=== PATIENT | female | born 1935 | race Caucasian/White ===

== ENCOUNTER → 2016-12-03 | Outpatient (CLI) | payer MEDICARE, BC ==
[2016-12-03 11:16] LABS: Blood Urea Nitrogen 17 mg/dL (7-17); Non-African American GFR(MDRD) >60 (>60 ml/min/1.73 sqM)
--- NOTE | 2016-12-03 12:11 | CT ---
EXAMINATION TYPE: CT iac wo/w con DATE OF EXAM: 12/03/2016 11:52 AM COMPARISON: CT brain 09/14/2012 HISTORY: C/O Dizziness CT DLP: 300 mGycm Automated exposure control for dose reduction was used. CONTRAST: CT scan of the IACs is performed without and with IV Contrast, patient injected with 100 mL of Omnipa que 300. FINDINGS: The external auditory canals are patent bilaterally. The middle ear ossicles are symmetric and unremarkable. There is no evidence of suspicious surrounding soft tissue density to suggest cho lesteatoma. The scutum is preserved bilaterally. The cochlea and the semicircular canals are symmet pretty and unremarkable. Vestibular aqueduct and internal carotid canal appear unremarkable. Temporoma ndibular joints are maintained bilaterally. Some minimal fluid may be within the dependent right mastoid air cells. IMPRESSION: 1. No significant abnormality seen to account for patient's symptoms.
== END | disposition home or self-care (01) ==
LOC: RADCTMAIN 10:24
PROVIDERS: ATTEND Otolaryngology
DX: H93.19 Tinnitus, unspecified ear (principal); R42 Dizziness and giddiness
CPT/HCPCS: 82565; 84520; 70482; 36415; Q9967

== ENCOUNTER → 2016-12-04 | Outpatient (CLI) | payer MEDICARE, BC ==
[2016-12-04 16:23] LABS: Basophils % (A) 1 %; CH 31.2; CHCM 33.4; Eosinophils # (A) 0.2 k/uL (0-0.7); Eosinophils % (A) 3 %; HCT 38.7 % (34.0-46.0); HDW 2.44; HGB 12.9 gm/dL (11.4-16.0); Luc # (Auto) 0.12; Luc % (Auto) 2; Lymphocytes # (A) 1.3 k/uL (1.0-4.8); Lymphocytes % (A) 24 %; MCH 31.2 pg (25.0-35.0); MCHC 33.2 g/dL (31.0-37.0); MCV 93.8 fL (80.0-100.0); Mean Platelet Volume 7.8; Monocytes # (A) 0.5 k/uL (0-1.0); Monocytes % (A) 10 %; Neutrophils # (A) 3.4 k/uL (1.3-7.7); Neutrophils % (A) 61 %; RBC 4.13 m/uL (3.80-5.40); RDW 13.6 % (11.5-15.5); WBC 5.6 k/uL (3.8-10.6); WBC (Perox) 5.59
[2016-12-04 16:36] LABS: ALT 41 U/L (9-52); AST 32 U/L (14-36); Alkaline Phosphatase 108 U/L (38-126); Anion Gap 14 mmol/L; Blood Urea Nitrogen 12 mg/dL (7-17); Carbamazepine (Tegretol) 7.4 ug/mL; Carbon Dioxide 26 mmol/L (22-30); Chloride 105 mmol/L (98-107); Digoxin <0.4 ng/mL; Glucose 96 mg/dL (74-99); Non-African American GFR(MDRD) >60 (>60 ml/min/1.73 sqM); Sodium 145 mmol/L (137-145); Total Bilirubin 0.3 mg/dL (0.2-1.3); Total Protein 6.9 g/dL (6.3-8.2)
== END | disposition home or self-care (01) ==
LOC: LABWHC1 15:48
PROVIDERS: ATTEND Family Medicine
DX: G50.0 Trigeminal neuralgia (principal); I48.0 Paroxysmal atrial fibrillation
CPT/HCPCS: 36415; 80053; 80156; 80157; 80162; 83735; 85025

== ENCOUNTER → 2017-03-12 | Outpatient (CLI) | payer MEDICARE, BC ==
[2017-03-12 10:55] LABS: Basophils % (A) 0 %; CH 31.5; Eosinophils # (A) 0.1 k/uL (0-0.7); Eosinophils % (A) 2 %; HCT 40.1 % (34.0-46.0); HGB 12.6 gm/dL (11.4-16.0); Luc % (Auto) 4; Lymphocytes # (A) 1.1 k/uL (1.0-4.8); Lymphocytes % (A) 22 %; MCH 30.2 pg (25.0-35.0); MCHC 31.5 g/dL (31.0-37.0); MCV 95.9 fL (80.0-100.0); Mean Platelet Volume 7.1; Monocytes # (A) 0.4 k/uL (0-1.0); Monocytes % (A) 9 %; Neutrophils # (A) 3.1 k/uL (1.3-7.7); Neutrophils % (A) 63 %; RBC 4.18 m/uL (3.80-5.40); RDW 13.6 % (11.5-15.5); WBC (Perox) 5.08
[2017-03-12 11:57] LABS: ALT 37 U/L (9-52); AST 27 U/L (14-36); Anion Gap 10 mmol/L; Blood Urea Nitrogen 16 mg/dL (7-17); Calcium 9.5 mg/dL (8.4-10.2); Carbamazepine (Tegretol) 6.7 ug/mL; Carbon Dioxide 27 mmol/L (22-30); Chloride 106 mmol/L (98-107); Glucose 96 mg/dL (74-99); Magnesium 2.1 mg/dL (1.6-2.3); Non-African American GFR(MDRD) >60 (>60 ml/min/1.73 sqM); Potassium 4.1 mmol/L (3.5-5.1); Sodium 143 mmol/L (137-145)
== END | disposition home or self-care (01) ==
LOC: LABWHC1 10:09
PROVIDERS: ATTEND Family Medicine
DX: G50.0 Trigeminal neuralgia (principal)
CPT/HCPCS: 36415; 80048; 80156; 80157; 83735; 84450; 84460; 85025

== ENCOUNTER 2017-07-14 08:56 | Day surgery (SDC) | payer MEDICARE, BC ==
[2017-07-13 10:53] VITALS: BMI 27.3
[~2017-07-14 08:56] MED LIST: LACTATED RINGERS 1,000 ML IV SCH
[2017-07-14 09:10] VITALS: TEMP 97.8
[2017-07-14] MEDS ORDERED: LIDOCAINE 1% 20 ML VIAL (10MG/ML) FOR IV START INTRADERMA ONE (09:13)
[2017-07-14] MEDS ORDERED: PROPOFOL 10 MG/ML 20 ML VIAL IV ONE (10:01)
[2017-07-14] MEDS ORDERED: GLYCOPYRROLATE 0.2 MG/ML 2 ML VIAL ONE (10:01)
[2017-07-14 10:53] VITALS: BP 128/78; PULSE 78; RESP 18
--- NOTE | 2017-07-14 11:15 | P.PCN ---
Date of Procedure: 07/14/17 Preoperative Diagnosis: Postoperative Diagnosis: Procedure(s) Performed: BRIEF HISTORY: Patient is a 82-year-old pleasant white female, scheduled for an elective colonoscopy as a part of evaluation of prior history of colon polyps. Last colonoscopy was in March 2014 and was noted to have residual polyp from prior polypectomy a year earlier in the splenic flexure which she underwent polypectomy as well as argon plasma coagulation and biopsies revealed tubular adenoma. She was advised to have a repeat colonoscopy in one year. Presently symptomatic PROCEDURE PERFORMED: Colonoscopy with snare polypectomy and argon plasma coagulation. PREOPERATIVE DIAGNOSIS: History Of colon polyps. IV sedation per Anesthesia. PROCEDURE: After informed consent was obtained, the patient, was brought into the endoscopy unit. IV sedation was administered by Anesthesia under continuous monitoring. Digital rectal examination was normal. Initially the Olympus CF- 160 flexible video colonoscope was then inserted in the rectum, gradually advanced into the cecum without any difficulty. Careful examination was performed as the scope was gradually being withdrawn. Ileocecal valve and the appendiceal orifice were visualized and appeared normal. Prep was excellent. Mucosa of the cecum, ascending colon, transverse colon, appeared normal. In the proximal descending colon close to the splenic flexure at 60 cm from the anal verge there was a 2 cm residual polyp noted from the previous polyp rectum aside that was also tattooed with Kellee ink. This polyp was removed by snare polypectomy and some residual polyp was too noted which was coagulated using argon plasma. The rest of the descending colon, sigmoid colon, and rectum appeared normal. Retroflexion was performed in the rectum and no lesions were seen. The patient tolerated the procedure well. IMPRESSION: 2 cm recurrent polyp in the proximal descending colon close to the splenic flexure status post snare polypectomy and argon plasma coag ablation as described above RECOMMENDATIONS: Findings of this examination were discussed with the patient as well as family. She was advised to follow up in office to discuss the biopsy results. Based the biopsy results will plan a repeat colonoscopy in one year was a surgical intervention. Implants: Indications for Procedure: Operative Findings: Description of Procedure:
== END 2017-07-14 11:42 | disposition home or self-care (01) ==
LOC: ORWHC2ENDO 08:56
PROVIDERS: ATTEND Internal Medicine Gastroenterology
DX: Z12.11 Encounter for screening for malignant neoplasm of colon (principal); D12.4 Benign neoplasm of descending colon; Z86.010 Personal history of colon polyps; I10 Essential (primary) hypertension; E78.5 Hyperlipidemia, unspecified; I48.91 Unspecified atrial fibrillation; Z79.01 Long term (current) use of anticoagulants; J44.9 Chronic obstructive pulmonary disease, unspecified; Z79.899 Other long term (current) drug therapy; Z88.5 Allergy status to narcotic agent; Z91.09 Other allergy status, other than to drugs and biological substances
CPT/HCPCS: 88305; 45385; 45388; J2704

== ENCOUNTER → 2017-09-27 | Outpatient (CLI) | payer MEDICARE, BC ==
[2017-09-27 11:51] LABS: Blood Urea Nitrogen 23 mg/dL (7-17); Non-African American GFR(MDRD) >60 (>60 ml/min/1.73 sqM)
--- NOTE | 2017-09-27 13:18 | CT ---
EXAMINATION TYPE: CT chest w con DATE OF EXAM: 09/27/2017 COMPARISON: 09/24/2016 HISTORY: Lung and Breast Cancer CT DLP: 283.70 mGycm Automated exposure control for dose reduction was used. CONTRAST: CT scan of the chest is performed with IV Contrast, patient injected with 100 ml mL of Omnipaque 300. FINDINGS: LUNGS: Partial pneumonectomy change right upper lobe again noted with associated volume loss. There i s interval development of multiple bilateral pulmonary nodules suspicious for metastatic disease with the largest nodule identified within the right upper lobe measuring 1.5 cm. The largest nodule withi n the left lung is within the left lower lobe and measures approximately 4 mm. Small right-sided pleu ral effusion. Additional partially solid groundglass nodule right infrahilar region measuring 1.6 cm. Additional right upper lobe groundglass nodules noted. Post radiation therapy changes medial right l magdalena. MEDIASTINUM: Anterior mediastinal nodule measures 1.7 cm and is new. Several subcentimeter precarinal lymph nodes are identified. Esophageal thickening identified. UPPER ABDOMEN: No significant abnormality appreciated. OTHER: Atheromatous changes abdominal aorta with borderline aneurysmal dilatation 3 cm. IMPRESSION: 1. Interval development of multiple right-sided pulmonary nodules and smaller left-sided pulmonary no dules felt to reflect metastatic disease. 2. New mediastinal nodule may reflect underlying adenopathy. 3. Partial right upper lobe pneumonectomy changes. 4. Trace right-sided pleural effusion.
== END | disposition home or self-care (01) ==
LOC: RADCTMAIN 11:16
PROVIDERS: ATTEND Internal Medicine Hematology & Oncology
DX: C34.90 Malignant neoplasm of unspecified part of unspecified bronchus or lung (principal); C50.212 Malignant neoplasm of upper-inner quadrant of left female breast; Z90.2 Acquired absence of lung [part of]; Z88.5 Allergy status to narcotic agent
CPT/HCPCS: 82565; 84520; 71260; 36415; Q9967

== ENCOUNTER → 2017-10-08 | Outpatient (CLI) | payer MEDICARE, BC ==
[2017-10-08 13:04] LABS: CH 30.3; CHCM 31.7; HCT 41.1 % (34.0-46.0); HDW 2.18; HGB 13.2 gm/dL (11.4-16.0); MCH 30.8 pg (25.0-35.0); MCHC 32.1 g/dL (31.0-37.0); Mean Platelet Volume 7.8; RBC 4.28 m/uL (3.80-5.40); RDW 14.2 % (11.5-15.5); WBC 5.3 k/uL (3.8-10.6)
[2017-10-08 13:21] LABS: ALT 41 U/L (9-52); AST 26 U/L (14-36); Anion Gap 9 mmol/L; Blood Urea Nitrogen 17 mg/dL (7-17); Calcium 9.2 mg/dL (8.4-10.2); Carbamazepine (Tegretol) 6.1 ug/mL; Carbon Dioxide 27 mmol/L (22-30); Chloride 105 mmol/L (98-107); Cholesterol 236 mg/dL (<200); Glucose 95 mg/dL (74-99); HDL Cholesterol 64 mg/dL (40-60); Magnesium 2.2 mg/dL (1.6-2.3); Non-African American GFR(MDRD) >60 (>60 ml/min/1.73 sqM); Sodium 141 mmol/L (137-145)
== END | disposition home or self-care (01) ==
LOC: LABWHC1 11:56
PROVIDERS: ATTEND Family Medicine
DX: Z00.01 Encounter for general adult medical examination with abnormal findings (principal)
CPT/HCPCS: 36415; 80048; 80061; 80156; 82306; 83036; 83735; 84443; 84450; 84460; 85027

== ENCOUNTER 2017-12-15 08:50 | Day surgery (SDC) | payer MEDICARE, BC ==
[2017-12-15 09:44] LABS: Mean Platelet Volume 6.9; Platelet Count 222 k/uL (150-450)
[2017-12-15 10:06] LABS: INR 1.1 (<1.2); Prothrombin Time 10.3 sec (9.0-12.0)
--- NOTE | 2017-12-15 10:41 | CT ---
EXAMINATION TYPE: CT discontinued procedure DATE OF EXAM: 12/15/2017 COMPARISON: NONE HISTORY: Breast cancer and right lung nodule The procedure is discussed with the patient, the risks, complications, benefits and alternatives, wer e discussed and any questions were answered. Informed consent was obtained. The patient is placed s upine on the CT table, prepped and draped in the usual sterile fashion. The small nodule measuring approximately 1 cm was directly posterior to the rib. Percutaneous access was not visualized despite multiple positions and breathing recommendations. IMPRESSION: 1. Discontinued CT biopsy due to inadequate percutaneous access.
[2017-12-15 11:16] VITALS: BP 128/80; PULSE 95; RESP 18; TEMP 98.1
== END 2017-12-15 11:00 | disposition home or self-care (01) ==
LOC: RADPROMAIN 08:50
PROVIDERS: ATTEND Internal Medicine Critical Care Medicine
DX: R91.1 Solitary pulmonary nodule (principal); Z53.8 Procedure and treatment not carried out for other reasons; C50.919 Malignant neoplasm of unspecified site of unspecified female breast
CPT/HCPCS: 36415; 76380; 85049; 85610

== ENCOUNTER → 2018-01-15 | Outpatient (CLI) | payer MEDICARE, BC ==
--- NOTE | 2018-01-15 15:11 | PE ---
EXAMINATION TYPE: PET CT fusion skull to thigh DATE OF EXAM: 01/15/2018 CLINICAL HISTORY: Lung cancer progress study. History of bilateral breast cancer 1968 and 2005. Histo ry of right lung cancer with chemotherapy and radiation treatment completed 2011. TECHNIQUE: Following the intravenous administration of 13.74 mCi of F-18 FDG, whole body images are performed from the skull base to the midthigh. Images are reviewed on the computer in the coronal, axial, and sagittal planes. Reconstructed rotating images are created on independent workstation and reviewed on the computer. A non-contrast CT is performed in conjunction with the PET scan. COMPARISON: Prior PET/CT October 23, 2017. Chest CT September 27, 2017 and older studies FINDINGS: SKULL BASE AND NECK: No suspicious hypermetabolic uptake is identified. CHEST, MEDIASTINUM, AND HILAR REGION: Low lung volumes are redemonstrated. There is persistent hyperm etabolic subpleural nodule right midlung anterolateral aspect measuring 1.5 x 1.1 cm on axial image 8 0, max SUV is 10.96 on current study. Once again there are multiple small nodules in the bilateral lower lung is redemonstrated without def initive hypermetabolic uptake. All nodules are subcentimeter in size without significant interval manuel nge. There is redemonstration of 2 larger groundglass nodules in the right upper lobe on axial image 67 an d 69 respectively which have been present on several older CTs, no suspicious hypermetabolic uptake i s seen. No significant change in size from older CTs is present. There are stable wedge-shaped chroni c consolidation or atelectasis anteromedial right midlung hilar/suprahilar level on axial image 78 wi thout abnormal hypermetabolic uptake. There is stable 10 x 9 mm pericarinal lymph node axial image 78 with perhaps mild increased hypermeta bolic uptake, max SUV is 3.13. There is stable right pericardial 1.4 x 1.3 cm low dense lesion axial image 89 without abnormal hyper metabolic uptake. ABDOMEN AND PELVIS: No suspicious hypermetabolic uptake is seen. OSSEOUS STRUCTURES: No suspicious abnormal metabolic uptake is identified. OTHER CT: Scleral calcification left globe is redemonstrated. Nasal septum is deviated to right of mi dline. Right breast is surgically absent. There are surgical clips in left breast medially redemonstrated fr om lumpectomy. Left axillary surgical clips are again seen. Coronary artery calcification is redemonstrated which is noted marker for coronary artery disease. There is fairly moderate atherosclerotic change in the descending aorta most prominent near iliac bif urcation. There is focal prominent bowel loop at site of sutures left midabdomen axial image 147 redemonstrated . No suspicious bowel dilatation otherwise is seen. There are few diverticula in the sigmoid colon. Uterus is surgically absent or atrophic in appearance. There is multilevel spurring in the thoracolumbar spine. There is facet arthropathy lower lumbar leve ls. There is moderate to severe multilevel disc space narrowing at mid to lower lumbar levels. IMPRESSION: Persistent suspicious peripheral anterolateral right upper lobe nodule. No significant ch marybeth in size from prior PET/CT but increased hypermetabolic uptake makes more suspicious for neoplasm . Consider repeat imaging guided biopsy for tissue sampling. Case is difficult due to adjacent mastec lia. Surgical referral for wedge resection also should be considered. Despite lack of hypermetabolic uptake in bibasilar nodules they remain suspicious given interval development since older CTs.
== END | disposition home or self-care (01) ==
LOC: RADPETMAIN 10:36
PROVIDERS: ATTEND Internal Medicine Hematology & Oncology
DX: C34.91 Malignant neoplasm of unspecified part of right bronchus or lung (principal); Z90.12 Acquired absence of left breast and nipple
CPT/HCPCS: 78815; A9552

== ENCOUNTER 2018-03-09 09:06 | Day surgery (SDC) | payer MEDICARE, BC ==
[2018-03-07 15:17] VITALS: BMI 28.3
[~2018-03-09 09:06] MED LIST changes: +LIDOCAINE 1% 20 ML VIAL (10MG/ML) FOR IV START INTRADERMA PRN
[2018-03-09 09:20] VITALS: RESP 16; TEMP 98.8
[2018-03-09] MEDS ORDERED: PROPOFOL 10 MG/ML 20 ML VIAL IV ONE (09:55)
--- NOTE | 2018-03-09 10:37 | P.PCN ---
Date of Procedure: 03/09/18 Procedure(s) Performed: Brief history: Patient is a pleasant 82-year-old white female, scheduled for an elective upper endoscopy as well as colonoscopy as a part of evaluation of gastric esophageal reflux disease, intermittent dysphagia to solids and prior history of colon polyps. Last colonoscopy was done a year ago. She was noted to have recurrent polyp in the descending colon that was removed by piecemeal snare polypectomy. Procedure performed: Esophagogastroduodenoscopy with biopsy Colonoscopy with snare polypectomy and tattooing with Kellee ink Preoperative diagnosis: GERD/intermittent dysphagia to solids Follow-up large descending colon polyp Anesthesia: MAC Procedure: After informed consent was obtained from the patient was brought into the endoscopy unit and IV sedation was administered by anesthesia under continuous monitoring. Initially upper endoscopy was done. The Olympus GF 160 video endoscope was inserted inserted into the mouth and esophagus intubated without any difficulty and was gradually advanced into the stomach and duodenum and carefully examined. The bulb and second part of the duodenum appeared normal. The scope was then withdrawn into the stomach adequately insufflated with air and upon careful examination the antrum had mild gastritis and biopsies were done from this area. The body, cardia and fundus appeared normal. The scope was then withdrawn into the esophagus. small faint of hiatal hernia noted.The GE junction was located at 40 cm to the incisors. It appeared regular with no erythema erosions or ulcerations. Rest of the esophagus appeared normal. the proximal cervical esophagus was carefully examined and no obvious stricture identified. Patient tolerated the procedure well. At this time the patient continued to remain sedation. Initial digital rectal examination was normal. Olympus CF 160 video pediatric colonoscope was then inserted into the rectum and gradually advanced to the cecum without any difficulty. Careful examination was performed as the scope was gradually being withdrawn. The prep was excellent. The cecum, ascending colon, appeared normal. In the proximal transverse colon closer to the hepatic flexure there was a 2 cm broad-based polyp that was completely removed by snare polypectomy. In the, descending colon at 60 cm from the anal verge there was a recurrent 2 cm flat polyp at the site of previous polypectomy. Despite multiple attempts I was not able to completely remove the polyp by snare and hence multiple biopsies were done obtained from this area. Following this tattooing visible was performed with Kellee ink around the site of the polyp. In the sigmoid colon there was a 1 cm polyp removed by snare polypectomy. The rest of the , sigmoid colon and rectum appeared normal. Retroflexion was performed in the rectum and no lesions were noted. Patient tolerated the procedure well. Impression: 1. Upper endoscopy revealed small hiatal hernia but no evidence of esophagitis or esophageal stricture. 2. Colonoscopy revealed: a) 2 cm broad-based polyp in the proximal transverse colon status post snare polypectomy b) 2 cm recurrent polyp in the descending colon was another the hepatic flexure at the same site of previous polypectomy status post partial snare polypectomy, biopsy and tattooing with Kellee ink c) 5 mm sigmoid colon polyp status post polypectomy Recommendations: Findings of this examination were discussed with the patient as well as a family. She was advised to follow with the biopsy results. She'll be seen in the office in 2 weeks and will discuss surgical evaluation for segmental resection of the recurrent descending colon polyp..
[2018-03-09 10:43] VITALS: PULSE 83
[2018-03-09 10:56] VITALS: BP 112/56
== END 2018-03-09 11:34 | disposition home or self-care (01) ==
LOC: ORWHC2ENDO 09:06
PROVIDERS: ATTEND Internal Medicine Gastroenterology
DX: D12.3 Benign neoplasm of transverse colon (principal); D12.5 Benign neoplasm of sigmoid colon; Z86.010 Personal history of colon polyps; K29.50 Unspecified chronic gastritis without bleeding; K44.9 Diaphragmatic hernia without obstruction or gangrene; I35.0 Nonrheumatic aortic (valve) stenosis; I48.91 Unspecified atrial fibrillation; Z85.3 Personal history of malignant neoplasm of breast; Z92.21 Personal history of antineoplastic chemotherapy; Z79.899 Other long term (current) drug therapy; Z88.5 Allergy status to narcotic agent
CPT/HCPCS: 88305; 45380; 45385; 43239; 45381; J2704; 44404

== ENCOUNTER → 2018-04-23 | Outpatient (CLI) | payer MEDICARE, BC ==
--- NOTE | 2018-04-24 17:35 | PE ---
EXAMINATION TYPE: PET CT fusion skull to thigh DATE OF EXAM: 04/23/2018 COMPARISON: NONE Prior PET/CT: 01/15/2018 CT chest 09/27/2017 HISTORY: Lung cancer right middle lobe TECHNIQUE: Following the intravenous administration of 13.08 mCi of F-18 FDG, whole body images are performed from the skull base to the midthigh. Images are reviewed on the computer in the coronal, a xial, and sagittal planes. Reconstructed rotating images are created on independent workstation and reviewed on the computer. A localization and attenuation correction CT is performed in conjunction with the PET scan. DLP: 364.24 mGycm SCAN: Subsequent Blood glucose: 122 mg/dL Average Mediastinum SUV: 2.1 Average Liver SUV: 2.8 FINDINGS: NECK: No abnormal uptake THORAX: There is intense uptake with blooming in the right upper lobe. This area corresponds to the p revious exam. PET image 69. SUV value 8.23. There is some mild uptake within the consolidation in the right lower lobe. Greatest uptake is surveillance supervisor ior to the right mainstem bronchus, image 76. SUV value 3.18. Although this area of increased density has generalized uptake. Increased uptake is within the thickening along the mediastinal border on th e right at the level of the right main bronchus with an SUV value in the range of 2.59. ABDOMEN: No abnormal uptake. No suspicious uptake within the liver is evident. There is some focal uptake in the region of the proximal ascending colon. Image 139. This has an SUV value of 5.26. Additional workup is recommended. Colonic neoplasm is not excluded. This is more foca l than normal GI uptake. PELVIS: No abnormal uptake OSSEOUS STRUCTURES: No abnormal uptake. LOCALIZATION CT: Nodule within the lung periphery measures 1.5 x 1.7 cm., Series 3 image 71. This is at the right mastectomy and chest wall resection site. Large consolidation extends into the right car diomediastinal region this area appears smaller than comparison, this does have some mild uptake of S UV 2.59. Consolidation remains into the right lower lobe. Coronary artery calcification is present. T he ascending thoracic aorta at the level of the main pulmonary artery is 3.6 cm. The main pulmonary a rtery the bifurcation is 2.4 cm. Multiple small pulmonary nodules are within the posterior dependent lung bases. Suspicious focal uptake is not identified. Largest nodule may be in the left lung base me asuring 0.8 cm., SUV 0.65, Series 3 image 97. Largest nodule at the right lung base measures 0.7 cm. And SUV of 0.76. Series 3 image 87. COMPARISON: Uptake is present in the right upper lung field nodule and within the consolidation previ ously. Uptake within the proximal ascending colon is new. IMPRESSION: 1. Enlarging peripheral lung nodule with elevated SUV of 8.23, diminished from previous SUV of 10.96. 2. Right perihilar consolidations along the anterior mediastinal border and extending into the right lower lobe medially and posteriorly with mild elevated SUV. Neoplasm within these regions is not excl uded. These areas are smaller than comparison. 3. No focus of radiotracer within the proximal medial ascending colon. A new neoplasm is not excluded . Additional workup is recommended.
== END | disposition home or self-care (01) ==
LOC: RADPETMAIN 08:26
PROVIDERS: ATTEND Radiology Radiation Oncology
DX: C34.2 Malignant neoplasm of middle lobe, bronchus or lung (principal)
CPT/HCPCS: 78815; A9552

== ENCOUNTER 2018-06-01 10:49 | Outpatient (CLI) | payer MEDICARE, BC | END 2018-06-01 11:00 | disposition home or self-care (01) | LOC: PTMAIN 10:49 | PROVIDERS: ATTEND Otolaryngology | DX: K21.9 Gastro-esophageal reflux disease without esophagitis (principal) | CPT/HCPCS: 31579 ==

== ENCOUNTER → 2018-06-01 | Outpatient (CLI) | payer MEDICARE, BC ==
--- NOTE | 2018-06-01 10:53 | FL ---
EXAMINATION TYPE: FL barium swallow DATE OF EXAM: 06/01/2018 COMPARISON: None HISTORY: Dysphasia TECHNIQUE: A single contrast UGI study is performed. FINDINGS: 54 seconds of fluoroscopy time was provided for the procedure. 16 images are obtained. The esophagus dilates to normal caliber has normal contour to the gastroesophageal junction. Gastroes ophageal junction opens to normal caliber. Secondary and tertiary contractions were evident during the examination. There is incomplete strippin g of the esophageal bolus in the horizontal drinking position. IMPRESSIONS: 1. Presbyesophagus. 2. Incomplete stripping of the esophageal bolus in the horizontal drinking position.
== END | disposition home or self-care (01) ==
LOC: RADFLWHC 10:06
PROVIDERS: ATTEND Otolaryngology
DX: K22.8 Other specified diseases of esophagus (principal)
CPT/HCPCS: 74220

== ENCOUNTER → 2018-07-13 | Outpatient (CLI) | payer MEDICARE, BC ==
[2018-07-13 10:13] LABS: HCT 39.1 % (34.0-46.0); HGB 12.2 gm/dL (11.4-16.0); MCH 30.4 pg (25.0-35.0); MCHC 31.3 g/dL (31.0-37.0); MCV 97.1 fL (80.0-100.0); Mean Platelet Volume 6.7; Platelet Count 216 k/uL (150-450); RBC 4.03 m/uL (3.80-5.40); RDW 13.5 % (11.5-15.5); WBC 6.3 k/uL (3.8-10.6)
[2018-07-13 10:20] LABS: Appearance,Urine Clear (Clear); Bacteria,Urine Rare /hpf; Bilirubin,Urine Negative (Negative); Blood,Urine Negative (Negative); Color,Urine Yellow; Glucose,Urine (UA) Negative (Negative); Ketones,Urine Negative (Negative); Leukocyte Esterase,Urine Moderate (Negative); Mucus,Urine Rare /hpf; Nitrite,Urine Positive (Negative); PH, Urine 6.5 (5.0-8.0); Protein,Urine Negative (Negative); Specific Gravity,Urine 1.009 (1.001-1.035); Squamous Epithelial Cell,Urine <1 /hpf (0-4); Urobilinogen,Urine <2.0 mg/dL (<2.0); WBC,Urine 11 /hpf (0-5)
[2018-07-13 10:57] LABS: ALT 34 U/L (9-52); AST 23 U/L (14-36); Albumin 3.5 g/dL (3.5-5.0); Alkaline Phosphatase 91 U/L (38-126); Anion Gap 6 mmol/L; Blood Urea Nitrogen 12 mg/dL (7-17); Carbon Dioxide 27 mmol/L (22-30); Chloride 107 mmol/L (98-107); Cholesterol 175 mg/dL (<200); Glucose 95 mg/dL (74-99); HDL Cholesterol 66 mg/dL (40-60); LDL Cholesterol,Calculated 81 mg/dL (0-99); Magnesium 2.1 mg/dL (1.6-2.3); Sodium 140 mmol/L (137-145); Total Bilirubin 0.3 mg/dL (0.2-1.3); Triglycerides 141 mg/dL (<150)
[2018-07-13 11:07] LABS: T4, Free (Free Thyroxine) 0.91 ng/dL (0.78-2.19)
[2018-07-13 19:50] LABS: Hemoglobin A1C 5.6 % (4.0-6.0)
== END | disposition home or self-care (01) ==
LOC: LABWHC1 09:08
PROVIDERS: ATTEND Family Medicine
DX: Z00.01 Encounter for general adult medical examination with abnormal findings (principal); E07.9 Disorder of thyroid, unspecified; E83.42 Hypomagnesemia
CPT/HCPCS: 36415; 80053; 80061; 81001; 82306; 83036; 83735; 84439; 84443; 85027

== ENCOUNTER → 2018-07-30 | Outpatient (CLI) | payer MEDICARE, BC ==
--- NOTE | 2018-07-31 13:42 | PE ---
EXAMINATION TYPE: PET CT fusion skull to thigh DATE OF EXAM: 07/30/2018 CLINICAL HISTORY: 83-year-old female with restaging right lung cancer diagnosed in 2012. Patient also with history of breast cancer with surgery last in 2005. Last chemoradiation therapy in 2011. TECHNIQUE: Following the intravenous administration of 12.7 mCi of F-18 FDG, whole body images are performed from the skull base to the midthigh. Images are reviewed on the computer in the coronal, a xial, and sagittal planes. Reconstructed rotating images are created on independent workstation and reviewed on the computer. A localization and attenuation correction CT is performed in conjunction with the PET scan. Glucose level: 95 mg/dL CTDI: 3.36 mGy DLP: 299.09 mGy-cm COMPARISON: 04/23/2018 and 01/15/2018 FINDINGS: PET: There is new focal borderline intense uptake along the right upper longus coli at the level of the na sopharynx, max SUV 5.4. There is no CT correlate Stable small 7 mm precarinal lymph node, max SUV 3.2 versus 2.5, previously. Continued consolidation and volume loss along the right perihilar region. This region shows variable mild or borderline moderate uptake, max SUV 3.3 versus 3.4, previously. Consolidation and soft tissue thickening along the right perihilar region, extending down to the ante rior pleural margin along the medial right middle lobe (2.9 cm thick versus 2.0 cm thick, previously) , extending up along the anterior right perihilar margin (thickening up to 1.6 cm versus 7 mm, previo usly) and with increasing patchy peribronchovascular consolidation centrally within the right lung is also increased. There are new septal lines on the right and new moderate pleural effusion. Intense uptake right middle lobe nodule currently measuring 2.8 cm versus 1.7 cm on 04/23/2018 and 1.5 cm on 01/15/2018. Max SUV 8.1 versus 8.2 and 11.0, respectively on the patient's prior 2 studies. A groundglass nodule measuring 1.2 cm in the right upper lobe is unchanged and shows no significant F DG uptake. A probable right pericardial lymph node measuring 1 cm is also unchanged and shows no significant FDG uptake. Numerous pulmonary nodules in the left lower lung are redemonstrated. Largest superior segment right lower lobe measures 6 mm vs approximately 4 mm on 01/15/2018. Subpleural pulmonary nodule posteromedia l superior segment right lower lobe measures 8 mm, unchanged. Many other nodules may be minimally in creased in size. Patient status post right mastectomy. Average liver SUV 2.3. Variable [id number]-ub-[id number] uptake throughout the stomach and bowel loops with a couple small bowel loo ps showing intense uptake in a segmental distribution in the lower mid abdomen. Findings likely physi ologic. Ametabolic 2.0 cm cyst anterior mid left kidney. Otherwise, physiologic FDG uptake within the abdome n and pelvis. Some degenerative tracer uptake at the right shoulder. ATTENUATION CORRECTION CT: Rightward nasal septal deviation. Visualized paranasal sinuses and mastoid air cells are clear. No c ervical lymphadenopathy. Heart borderline enlarged with trace pericardial fluid. Aortic valvular calcifications are present. A dditional coronary vessel calcifications are present. Ectatic upper descending thoracic aorta at 3.2 cm. Moderate atherosclerotic arch calcifications with conventional arch vessel branching anatomy. Ec tatic lower descending thoracic aorta 2.8 cm. Emphysematous changes in the lungs. Gallbladder hydropic at 4.5 cm wide. Likely relates to fasting state. If right upper quadrant pain or concern for early acute cholecystitis, follow-up ultrasound or HIDA scan. Adrenal glands are clear. No dilated small bowel, free fluid, or free air. No mesenteric or retroperitoneal lymphadenopathy. Mo derate stool burden. Mild diverticular change in the sigmoid colon. No pericolonic inflammatory pate e. Bladder is urine distended. The uterus and ovaries are not well delineated from adjacent bowel loops. No abnormal fluid collection in the pelvis or pelvic lymphadenopathy. Bones: Degenerative changes of the hips and mid to lower lumbar spine and endplate spondylosis mid to lower thoracic spine. IMPRESSION: 1. Increased thickening of the right perihilar consolidation and volume loss extending down along the medial right middle lobe and superior mediastinal border continues to show only mild or borderline m oderate uptake. Correlate for possible progressive radiation pneumonitis or fibrosis. 2. Enlarging hypermetabolic right middle lobe pulmonary nodule currently measuring 2.8 cm (versus 1.7 and 1.5 cm on the patient's prior [address]s dating back to 01/15/2018). Stable max SUV around 8.0 co mpared to the last PET/CT. A small 7 mm precarinal lymph node is stable in size but shows slight incr eased borderline moderate uptake (max SUV 3.2 versus 2.5, previously) possibly reactive. 3. New moderate sized right pleural effusion with new septal lines throughout the right lung (possibl y due to pulmonary venous congestion or atypical pneumonias). Clinically correlate. 4. Numerous pulmonary nodules in the left mid and lower lung measure up to 8 mm redemonstrated. A few scattered pulmonary nodules are minimally larger by up to 2 mm. These show no evident hypermetabolis m at this time but the majority are too small for adequate PET characterization. 5. New focal borderline intense uptake along the posterior right nasopharynx appears centered on the longus coli. Despite the focality, muscular uptake is suspected. A short interval follow-up contrast enhanced CT neck can be considered to exclude a developing mucosal lesion here.
== END | disposition home or self-care (01) ==
LOC: RADPETMAIN 08:28
PROVIDERS: ATTEND Radiology Radiation Oncology
DX: C34.2 Malignant neoplasm of middle lobe, bronchus or lung (principal); J98.4 Other disorders of lung; J90 Pleural effusion, not elsewhere classified; Z85.3 Personal history of malignant neoplasm of breast
CPT/HCPCS: 78815; A9552

== ENCOUNTER 2018-08-08 11:15 | Day surgery (SDC) | payer MEDICARE, BC ==
[~2018-08-08 11:15] MED LIST changes: -LACTATED RINGERS 1,000 ML IV SCH; -LIDOCAINE 1% 20 ML VIAL (10MG/ML) FOR IV START INTRADERMA PRN; +SODIUM CHLORIDE 0.9% 500 ML in EMPTY BAG 1 BAG IV PRN
[2018-08-08 11:48] VITALS: BP 129/75; PULSE 97; RESP 18; TEMP 98
--- NOTE | 2018-08-08 12:48 | XR ---
EXAMINATION TYPE: XR chest 1V portable DATE OF EXAM: 08/08/2018 COMPARISON: 09/14/2012 HISTORY: Postthoracentesis TECHNIQUE: Single frontal view of the chest is obtained. FINDINGS: There is no sizable pneumothorax. Diffuse osteopenia and arthropathy of the shoulders note d greater on the right. Surgical clips overlying the left axilla. Surgical clips overlying the left b reast. There is consolidation and tiny pleural effusion on the right. No pneumothorax. Rib deformitie s are noted on the right. Heart size stable. Atherosclerotic change aorta. IMPRESSION: 1. Persistent small pleural effusion and areas of consolidation involving the right lung but no pneum othorax postthoracentesis.
--- NOTE | 2018-08-09 00:01 | PCN ---
PROCEDURE NOTE Indication Right sided pleural effusion. A time-out was completed verifying correct patient, procedure, site, positioning , and implant (s) or special equipment if applicable. Ultrasound guidance was used and appropriate fluid pocket was identified and marked. Patient was positioned, prepped and draped in usual sterile fashion. Lidocaine was used to anesthetize the area. A Thoracentesis catheter was introduced into the pleural space and fluid was removed. Blood loss was none. A chest x-ray was ordered to evaluate for pneumothorax. Total Fluid Removed 900 mL. Color of Fluid turbid dark yellowish pleural effusion. Fluid @@was/was not sent for appropriate laboratory tests. Patient tolerated the procedure well and there were no complications. PREOP DIAGNOSIS: Right sided pleural effusion. POSTOP DIAGNOSIS: Right sided pleural effusion. No bedside complications. No evidence of pneumothorax following the procedure. MMODL / IJN: [id number] /
[2018-08-09 04:44] LABS: Total Protein, Body Fluid 3302 mg/dL
== END 2018-08-09 09:35 | disposition home or self-care (01) ==
LOC: PROCWHC3 11:15
PROVIDERS: ATTEND Internal Medicine Critical Care Medicine
DX: J90 Pleural effusion, not elsewhere classified (principal); C34.90 Malignant neoplasm of unspecified part of unspecified bronchus or lung; J31.0 Chronic rhinitis; I35.0 Nonrheumatic aortic (valve) stenosis; J44.9 Chronic obstructive pulmonary disease, unspecified; I25.10 Atherosclerotic heart disease of native coronary artery without angina pectoris; I48.0 Paroxysmal atrial fibrillation; E78.2 Mixed hyperlipidemia; Z87.891 Personal history of nicotine dependence; I50.9 Heart failure, unspecified; Z85.118 Personal history of other malignant neoplasm of bronchus and lung; Z92.21 Personal history of antineoplastic chemotherapy; Z88.5 Allergy status to narcotic agent; Z92.3 Personal history of irradiation; Z79.899 Other long term (current) drug therapy
CPT/HCPCS: 32554; 88108; 88305; 88342; 88341; 82945; 83615; 84157; 71045; J2001

== ENCOUNTER → 2018-08-08 | Outpatient (CLI) | payer MEDICARE, BC ==
--- NOTE | 2018-08-08 11:31 | US ---
EXAMINATION TYPE: US chest DATE OF EXAM: 08/08/2018 COMPARISON: NONE CLINICAL HISTORY: J90 Right Sided Pleural Effusion. Right pleural effusion, chest marking TECHNIQUE: Targeted ultrasound of the posterior lower right hemithorax EXAM MEASUREMENTS: Right Pleural Effusion pocket size: 9.9 cm Right skin surface to fluid distance: 2.6 cm Right side marked for possible thoracentesis outside the dept. Pulmonologists are able to review the images in the patient?s EMR. IMPRESSIONS: Pleural effusion is noted.
== END ==
LOC: RADUSWWP 10:48
PROVIDERS: ATTEND Internal Medicine Critical Care Medicine
DX: J90 Pleural effusion, not elsewhere classified (principal)
CPT/HCPCS: 76604

== ENCOUNTER → 2018-08-30 | Outpatient (CLI) | payer MEDICARE, BC ==
--- NOTE | 2018-08-30 14:24 | FL ---
EXAMINATION TYPE: FL single contrast barium swallow DATE OF EXAM: 08/30/2018 CLINICAL INDICATION: 83-year-old female with dysphasia, difficulty swallowing, upper esophageal pain, sensation of things getting stuck on the left side of the throat COMPARISON: None Total Fluoroscopy Time: 1 minute 40 seconds. Total images: 8 FINDINGS: Upon swallowing thick barium, there is deep penetration with coating of the vocal folds. This does no t elicit the cough reflex. Patient does report frequent choking and coughing episodes during eating. No extension of ingested contrast below the vocal folds. No esophageal diverticulum is seen. The jose t Given this finding, the exam was terminated after a couple additional swallows to ensure ash arrieta ncy of the thoracic esophagus. No obvious fixed narrowing or definite suspicious filling defect is id entified. Elevation of the right hemidiaphragm likely with underlying pleural effusion. IMPRESSION: 1. Silent deep penetration with coating of the vocal folds. Speech pathology consultation recommended . The patient reports frequent coughing and choking episodes during meals. 2. After a couple additional swallows, the exam was terminated given the patient's risk for aspiratio n. The thoracic portion of the esophagus is grossly patent but not assessed in detail. 3. Elevation of the right hemidiaphragm with underlying pleural effusion. Correlate to exclude hemidi aphragmatic paralysis.
== END | disposition home or self-care (01) ==
LOC: RADFLMAIN 11:04
PROVIDERS: ATTEND Internal Medicine Hematology & Oncology
DX: J38.7 Other diseases of larynx (principal); R13.10 Dysphagia, unspecified; J90 Pleural effusion, not elsewhere classified
CPT/HCPCS: 74220

== ENCOUNTER 2018-08-31 11:08 | Inpatient (IN) | payer MEDICARE, BC ==
--- NOTE | 2018-08-31 12:11 | ED ---
General Adult HPI - General Chief complaint: Shortness of Breath Stated complaint: abn chest xray Source: patient Mode of arrival: ambulatory Limitations: no limitations - History of Present Illness Initial comments: Dictation was produced using [employer] dictation software. please excuse any grammatical, word or spelling errors. Chief Complaint: 83-year-old female past medical history of stage IV lung cancer presents with abnormal x-ray. History of Present Illness: The 83-year-old female who is currently being treated for lung cancer stage IV presents with abnormal x-ray. She just had x- ray performed today where there was a large right-sided effusion patient is told to come to the emergency department her ship's officer Dr. Mitchell. She states she had fusion drain on the right side in the past by Dr. Mitchell. Patient states she's been getting progressively short of breath. Last time she had an effusion they evaluated the fluid and reports that there was cancer cells in the fluid. Patient denies any constitutional symptoms. The ROS documented in this emergency department record has been reviewed and confirmed by me. Those systems with pertinent positive or negative responses have been documented in the HPI. All other systems are other negative and/or noncontributory. - Related Data Home Medications Medication Instructions Recorded Confirmed Omeprazole [PriLOSEC] 20 mg PO BID PRN 03/06/14 08/31/18 Potassium Chloride [K-Tab ER] 10 meq PO BID 03/06/14 08/31/18 Pravastatin Sodium [Pravachol] 80 mg PO HS 03/06/14 08/31/18 Rivaroxaban [Xarelto] 20 mg PO W/SUPPER 03/06/14 08/31/18 Cholecalciferol [Vitamin D3] 1,000 unit PO DAILY 10/26/16 08/31/18 Metoprolol Tartrate [Lopressor] 25 mg PO DAILY 11/04/16 08/31/18 Vit C/E/Zn/Coppr/Lutein/Zeaxan 1 cap PO BID 11/04/16 08/31/18 [Preservision Areds 2 Softgel] Cetirizine HCl [Zyrtec] 10 mg PO DAILY 12/02/17 08/31/18 Biotin 2,000 mcg PO DAILY 03/07/18 08/31/18 Calcium Carbonate [Calcium] 600 mg PO DAILY 03/07/18 08/31/18 Cyanocobalamin (Vitamin B-12) 1,000 mcg PO DAILY 03/07/18 08/31/18 [Vitamin B-12] Cyclobenzaprine [Flexeril] 5 mg PO TID PRN 08/31/18 08/31/18 Docusate [Colace] 200 mg PO DAILY 08/31/18 08/31/18 Fluconazole [Diflucan] See Taper PO DAILY 08/31/18 08/31/18 Fluticasone Nasal [place] [Flonase 1 spray EA NOSTRIL BID 08/31/18 08/31/18 Nasal [place]] Furosemide [Lasix] 20 mg PO DAILY 08/31/18 08/31/18 Lisinopril [Prinivil] 5 mg PO DAILY 08/31/18 08/31/18 Magnesium Oxide [Mag-Ox] 250 mg PO DAILY 08/31/18 08/31/18 Meclizine [Antivert] 25 mg PO TID PRN 08/31/18 08/31/18 Nystatin 100,000 Unit/ml Susp 5 ml PO QID 08/31/18 08/31/18 [Mycostatin Oral Susp] Ondansetron [Zofran ODT] 4 mg PO Q6H PRN 08/31/18 08/31/18 Pantoprazole Sodium [Protonix] 40 mg PO DAILY 08/31/18 08/31/18 Allergies Allergy/AdvReac Type Severity Reaction Status Date / Time codeine AdvReac stomach Verified 08/31/18 11:54 upset, UNLESS TAKEN WITH FOOD BED SHEETS AdvReac Unknown Itching/bum Uncoded 08/31/18 11:39 ps Review of Systems ROS Statement: Those systems with pertinent positive or pertinent negative responses have been documented in the HPI. ROS Other: All systems not noted in ROS Statement are negative. Past Medical History Past Medical History: Atrial Fibrillation, Cancer, Chest Pain / Angina, COPD, Eye Disorder, GERD/Reflux, Hyperlipidemia, Hypertension, Osteoarthritis (OA) Additional Past Medical History / Comment(s): HX breast cancer x2, lung x2; Lymph node cancer - had chemo, radiation 2012. MACULAR DEGENERATION. HX CHRONIC BRONCHITIS., MARIA D TORN ROTATOR CUFFS. LIGHTHEADEDNESS FOR LONG TIME., trigeminal neuralgia, has blood clot behind left eye, thoracentesis History of Any Multi-Drug Resistant Organisms: None Reported Past Surgical History: Appendectomy, Bowel Resection, Breast Surgery, Heart Catheterization, Orthopedic Surgery, Tubal Ligation Additional Past Surgical History / Comment(s): RT MASTECTOMY, LT BREAST LUMPECTOMY. RT SHOULDER SURG X2. ESOPHAGUS "SHAVED D/T BRONCHITIS.", maria d cataracts Past Anesthesia/Blood Transfusion Reactions: Previous Problems w/ Anesthesia Additional Past Anesthesia/Blood Transfusion Reaction / Comment(s): HX SEVERE HEADACHES LONG TIME AGO. Past Psychological History: No Psychological Hx Reported Smoking Status: Former smoker Past Alcohol Use History: None Reported Past Drug Use History: None Reported - Past Family History Mother Daughter(s) Family Medical History: Cancer Daughter(s) Family Medical History: Cancer Additional Family Medical History / Comment(s): breast Mother Family Medical History: Cancer Additional Family Medical History / Comment(s): breast General Exam - General Exam Comments Initial Comments: PHYSICAL EXAM: General Impression: Alert and oriented x3, not in acute distress HEENT: Normocephalic atraumatic, extra-ocular movements intact, pupils equal and reactive to light bilaterally, mucous membranes moist. Cardiovascular: Heart regular rate and rhythm, S1&S2 audible, no murmurs, rubs or gallops Chest: Diminished lung sounds on the right Abdomen: Bowel sounds present, abdomen soft, non-tender, non-distended, no organomegaly Musculoskeletal: Pulses present and equal in all extremities, no peripheral edema Motor: Power 5/5 bilaterally, no focal deficits noted Neurological: CN II-XII grossly intact, no focal motor or sensory deficits noted Skin: Intact with no visualized rashes Psych: Normal affect and mood Limitations: no limitations Course Vital Signs 08/31/18 08/31/18 08/31/18 11:36 13:31 14:35 Temperature 97.8 F Pulse Rate 103 H 105 H 101 H Respiratory 20 20 22 Rate Blood Pressure 118/73 133/93 134/91 O2 Sat by Pulse 94 L 97 96 Oximetry Medical Decision Making - Medical Decision Making ED course: 83-year-old female past medical history of stage IV lung cancer undergoing active infusion therapy presents with abnormal x-ray performed outpatient. Patient is a history of right-sided pleural effusion that was previously drained by Dr. Mitchell. Laceration infiltrated had a fluid analyzed. It reflected exudative fluid.. Vital signs upon arrival shows heart rate of 103, respiratory signs within normal limits. Patient is on Xarelto for H fibrillation. Patient was evaluated by Dr. Mitchell who recommended chest to admission.Return evaluation obtained. CBC, coag panel, metabolic panel unremarkable. Patient be admitted to [facility] under the care of Dr. Chacon. Dr. Mitchell placed chest tube in emergency department patient reevaluated in stable condition status post chest tube placement. Patient to be sent to [facility] per request by ship's officer. EKG interpretation: Ventricular rate 98, normal sinus rhythm,. Interval 152, QRS 106, QTC 469. No VT prolongation, no QTC prolongation, no ST or T-wave changes noted. Overall, this EKG is unremarkable - Lab Data Result diagrams: 08/31/18 12:44 08/31/18 12:44 Lab Results 08/31/18 08/31/18 08/31/18 Range/Units 12:44 12:44 12:44 WBC 6.2 (3.8-10.6) k/uL RBC 4.41 (3.80-5.40) m/uL Hgb 13.3 (11.4-16.0) gm/dL Hct 42.0 (34.0-46.0) % MCV 95.2 (80.0-100.0) fL MCH 30.2 (25.0-35.0) pg MCHC 31.8 (31.0-37.0) g/dL RDW 13.2 (11.5-15.5) % Plt Count 261 (150-450) k/uL Neutrophils % 71 % Lymphocytes % 15 % Monocytes % 9 % Eosinophils % 3 % Basophils % 1 % Neutrophils # 4.4 (1.3-7.7) k/uL Lymphocytes # 0.9 L (1.0-4.8) k/uL Monocytes # 0.5 (0-1.0) k/uL Eosinophils # 0.2 (0-0.7) k/uL Basophils # 0.0 (0-0.2) k/uL PT (9.0-12.0) sec INR (<1.2) APTT (22.0-30.0) sec Sodium 140 (137-145) mmol/L Potassium 3.8 (3.5-5.1) mmol/L Chloride 106 (98-107) mmol/L Carbon Dioxide 27 (22-30) mmol/L Anion Gap 7 mmol/L BUN 7 (7-17) mg/dL Creatinine 0.45 L (0.52-1.04) mg/dL Est GFR (CKD-EPI)AfAm >90 (>60 ml/min/1.73 sqM) Est GFR (CKD-EPI)NonAf >90 (>60 ml/min/1.73 sqM) Glucose 83 (74-99) mg/dL Calcium 9.1 (8.4-10.2) mg/dL Magnesium 2.1 (1.6-2.3) mg/dL Total Bilirubin 0.3 (0.2-1.3) mg/dL AST 25 (14-36) U/L ALT 20 (9-52) U/L Alkaline Phosphatase 93 (38-126) U/L Total Creatine Kinase 50 (30-135) U/L CK-MB (CK-2) 0.8 (0.0-2.4) ng/mL CK-MB (CK-2) Rel Index 1.6 Troponin I <0.012 (0.000-0.034) ng/mL NT-Pro-B Natriuret Pep pg/mL Total Protein 5.8 L (6.3-8.2) g/dL Albumin 3.1 L (3.5-5.0) g/dL 08/31/18 08/31/18 Range/Units 12:44 12:44 WBC (3.8-10.6) k/uL RBC (3.80-5.40) m/uL Hgb (11.4-16.0) gm/dL Hct (34.0-46.0) % MCV (80.0-100.0) fL MCH (25.0-35.0) pg MCHC (31.0-37.0) g/dL RDW (11.5-15.5) % Plt Count (150-450) k/uL Neutrophils % % Lymphocytes % % Monocytes % % Eosinophils % % Basophils % % Neutrophils # (1.3-7.7) k/uL Lymphocytes # (1.0-4.8) k/uL Monocytes # (0-1.0) k/uL Eosinophils # (0-0.7) k/uL Basophils # (0-0.2) k/uL PT 10.7 (9.0-12.0) sec INR 1.1 (<1.2) APTT 25.7 (22.0-30.0) sec Sodium (137-145) mmol/L Potassium (3.5-5.1) mmol/L Chloride (98-107) mmol/L Carbon Dioxide (22-30) mmol/L Anion Gap mmol/L BUN (7-17) mg/dL Creatinine (0.52-1.04) mg/dL Est GFR (CKD-EPI)AfAm (>60 ml/min/1.73 sqM) Est GFR (CKD-EPI)NonAf (>60 ml/min/1.73 sqM) Glucose (74-99) mg/dL Calcium (8.4-10.2) mg/dL Magnesium (1.6-2.3) mg/dL Total Bilirubin (0.2-1.3) mg/dL AST (14-36) U/L ALT (9-52) U/L Alkaline Phosphatase (38-126) U/L Total Creatine Kinase (30-135) U/L CK-MB (CK-2) (0.0-2.4) ng/mL CK-MB (CK-2) Rel Index Troponin I (0.000-0.034) ng/mL NT-Pro-B Natriuret Pep 430 pg/mL Total Protein (6.3-8.2) g/dL Albumin (3.5-5.0) g/dL Disposition Clinical Impression: Hydropneumothorax Disposition: ADMITTED IP TO THIS HOSP Referrals: Douglas Cordova DO [Primary Care Provider] - 1-2 days Decision Time: 15:58
[2018-08-31 13:06] LABS: Basophils % (A) 1 %; Eosinophils # (A) 0.2 k/uL (0-0.7); Eosinophils % (A) 3 %; HGB 13.3 gm/dL (11.4-16.0); Lymphocytes # (A) 0.9 k/uL (1.0-4.8); Lymphocytes % (A) 15 %; MCH 30.2 pg (25.0-35.0); MCHC 31.8 g/dL (31.0-37.0); MCV 95.2 fL (80.0-100.0); Mean Platelet Volume 6.8; Monocytes # (A) 0.5 k/uL (0-1.0); Monocytes % (A) 9 %; Neutrophils # (A) 4.4 k/uL (1.3-7.7); Neutrophils % (A) 71 %; Platelet Count 261 k/uL (150-450); RBC 4.41 m/uL (3.80-5.40); RDW 13.2 % (11.5-15.5); WBC 6.2 k/uL (3.8-10.6)
[2018-08-31 13:17] LABS: ALT 20 U/L (9-52); AST 25 U/L (14-36); Albumin 3.1 g/dL (3.5-5.0); Alkaline Phosphatase 93 U/L (38-126); Anion Gap 7 mmol/L; Blood Urea Nitrogen 7 mg/dL (7-17); Calcium 9.1 mg/dL (8.4-10.2); Carbon Dioxide 27 mmol/L (22-30); Chloride 106 mmol/L (98-107); Glucose 83 mg/dL (74-99); Magnesium 2.1 mg/dL (1.6-2.3); Potassium 3.8 mmol/L (3.5-5.1); Sodium 140 mmol/L (137-145); Total Bilirubin 0.3 mg/dL (0.2-1.3); Total Protein 5.8 g/dL (6.3-8.2)
[2018-08-31 13:20] LABS: INR 1.1 (<1.2); Partial Thromboplastin Time 25.7 sec (22.0-30.0); Prothrombin Time 10.7 sec (9.0-12.0)
[2018-08-31 13:29] LABS: Creatine Kinase 50 U/L (30-135)
[2018-08-31 13:42] LABS: Creatine Kinase MB 0.8 ng/mL (0.0-2.4); Troponin I <0.012 ng/mL (0.000-0.034)
[2018-08-31] MEDS ORDERED: LIDOCAINE 1% INJ 10MG/ML (20 ML MDV) SQ ONE (15:33)
[2018-08-31] MEDS ORDERED: HYDROmorphone 1 MG/ML 1 ML SYRINGE IVP STA (15:50)
[2018-08-31] MEDS ORDERED: NALOXONE 0.4 MG/ML 1 ML VIAL IV PRN (15:56)
--- NOTE | 2018-08-31 15:59 | XR ---
EXAMINATION TYPE: XR chest 1V portable DATE OF EXAM: 08/31/2018 COMPARISON: 08/31/2018 HISTORY: Post chest tube insertion TECHNIQUE: Single frontal view of the chest is obtained. FINDINGS: Chest tube is seen in there remains a hydropneumothorax on the right which appears improve d but persists. Sizable pneumothorax remains. Left lung remains clear with changes suggestive of clinical informatics specialist mai interstitial lung disease. Surgical clips are noted. Diffuse osteopenia and arthropathy of the sh oulders. Contrast within the abdomen. Atherosclerotic change aorta. IMPRESSION: 1. There is interval improvement of the right-sided hydropneumothorax with basilar consolidation. Siz able pneumothorax persists.
[2018-08-31] MEDS ORDERED: PANTOPRAZOLE 40 MG TABLET PO PRN (16:48)
[2018-08-31] MEDS ORDERED: MECLIZINE 25 MG TAB PO PRN (16:48)
--- NOTE | 2018-08-31 16:50 | P.CNPUL ---
History of Present Illness Consult date: 08/31/18 Reason for consult: dyspnea History of present illness: This is an 83 -year-old female patient who has currently metastatic adenocarcinoma of the lung. The patient is known to have COPD and previous history of non-small cell lung cancer. The patient's original diagnosis of lung cancer was established in 2011 through an anterior mediastinal endoscopy. Following that the patient underwent chemoradiation therapy. She responded very well and she remained in remission for many years. As for COPD, the patient is an FEV1 of 50% of predicted and she has also underlying comorbidities including CHF, chronic atrial fibrillation, aortic valve stenosis and the patient has moderate to severe ASO with a valve area of 0.8 cm, coronary artery disease with nonocclusive disease based on the previous cardiac catheterization,, and previous history of breast cancer, and the patient is post mastectomy. The patient upon follow-up was found to have a right upper lobe lesion that was initially measuring 1.8 x 1.6 cm in size in addition to some smaller pretracheal lymph nodes measuring 9 mm. Based on this, the patient was sent for a fine-needle aspiration that did not yield any diagnosis of malignancy. Upon subsequent follow-up, the patient underwent a follow-up CAT scan imaging that showed enlargement of the right upper lobe mass and the PET scan that was done on 07/30/2018 showed increasing mass in the right middle lobe area measuring 2.8 cm in size with a maximum SUV of 8 addition to smaller 7 mm precarinal lymph nodes. There are also numerous pulmonary nodules in the left mid and the left lower lung area measuring up to 8 mm in size and few scattered pulmonary nodules on the right largest being about 2 mm in size. Patient also developed a right-sided pleural effusion. I performed a diagnostic thoracentesis on this patient. A total of 900 mL of pleural fluid was aspirated. The fluid returns clerk to be malignant and the patient was referred to Dr. Corcoran for treatment and the patient is currently on immunotherapy. The patient came into the emergency department today because of worsening shortness of breath. An x-ray was done and it showed a estimated 30% right- sided hydropneumothorax with a large fluids component attributing the mediastinum and there was some limited shift to the right. Based on this, the patient was seen in emergency department and a chest tube was inserted. I inserted a chest tube and a total of 1500 of pleural fluid was aspirated immediately. There was a positive air leak. Subsequent chest x-ray showed interval improvement of a right-sided hydropneumothorax. There was still some stable pneumothorax in the right apex still seen. Tube was in a good location. The procedure without without any complications. The patient will be admitted to the hospital for now. Her underlying hemodynamics is stable for now. She is expressing some pain along the right chest area for which she is getting Dilaudid 0.5 mg every 6-8 hours. At that the patient was also having difficulties with swallowing. Previous EGD evaluation was negative. She underwent a recent modified barium swallow that showed silent penetration with coating of the vocal cords. After couple of swallows, there was a concern of aspiration based on that the patient had the procedure terminated. Review of Systems Constitutional Constitutional: no fever, no night sweats, no significant weight gain, no significant weight loss, no exercise intolerance Eyes Eyes: no dry eyes, no vision change, no irritation ENMT Ears: no difficulty hearing, no ear pain Nose: no frequent nosebleeds, no nose problems, sinus problems Mouth/Throat: no sore throat, no bleeding gums, no snoring, no dry mouth, no mouth ulcers, no oral abnormalities, no teeth problems Cardiovascular Cardiovascular: no chest pain, no arm pain on exertion, no shortness of breath when walking, no shortness of breath when lying down, no palpitations, no known heart murmur Respiratory Respiratory: no wheezing, no coughing up blood, no sleep apnea, cough, shortness of breath , right-sided pleural effusion Gastrointestinal Gastrointestinal: no abdominal pain, no nausea, no vomiting, no constipation, normal appetite, no diarrhea, not vomiting blood, difficulty in swallowing Genitourinary Genitourinary: no incontinence, no difficulty urinating, no hematuria, no increased frequency Musculoskeletal Musculoskeletal: no muscle aches, no muscle weakness, no arthralgias/joint pain , no back pain, no swelling in the extremities Integumentary Skin: no abnormal mole, no jaundice, no rashes, no laceration Neurologic Neurologic: no loss of consciousness, no weakness, no numbness, no seizures, no migraines, no headaches, no tremor, dizziness Psychiatric Psych: no depression, no sleep disturbances, feeling safe in a relationship, no alcohol abuse, no anxiety, no hallucinations, no suicidal thoughts Endocrine Endocrine: no fatigue Hematologic/Lymphatic Hematologic/Lymphatic no swollen glands, no bruising, no excessive bleeding Allergic/Immunologic Allergy/Immunologic: no runny nose, no sinus pressure, no itching, no hives, no frequent sneezing Past Medical History Past Medical History: Atrial Fibrillation, Cancer, Chest Pain / Angina, COPD, Eye Disorder, GERD/Reflux, Hyperlipidemia, Hypertension, Osteoarthritis (OA) Additional Past Medical History / Comment(s): COPD with an FEV1 of 50% of predicted, history of metastatic non-small cell lung cancer adenocarcinoma with a malignant right-sided pleural effusion, history of breast cancer with a previous right mastectomy, macular degeneration, moderate to severe aortic stenosis with a valve area of 0.8 cm, chronic atrial fibrillation, hypertension , hyperlipidemia, acid reflux, osteoarthritis, trigeminal neuralgia, previous history of a clot behind the eye, bilateral rotator cuff, acid reflux, cardiac stenosis, coronary artery disease with nonocclusive CAD, hyperlipidemia, chronic ALLERGIC rhinitis History of Any Multi-Drug Resistant Organisms: None Reported Past Surgical History: Appendectomy, Bowel Resection, Breast Surgery, Heart Catheterization, Orthopedic Surgery, Tubal Ligation Additional Past Surgical History / Comment(s): RT MASTECTOMY, LT BREAST LUMPECTOMY. RT SHOULDER SURG X2. ESOPHAGUS "SHAVED D/T BRONCHITIS.", elise cataracts Past Anesthesia/Blood Transfusion Reactions: Previous Problems w/ Anesthesia Additional Past Anesthesia/Blood Transfusion Reaction / Comment(s): HX SEVERE HEADACHES LONG TIME AGO. Past Psychological History: No Psychological Hx Reported Smoking Status: Former smoker Past Alcohol Use History: None Reported Past Drug Use History: None Reported - Past Family History Mother Daughter(s) Family Medical History: Cancer Daughter(s) Family Medical History: Cancer Additional Family Medical History / Comment(s): breast Mother Family Medical History: Cancer Additional Family Medical History / Comment(s): breast Medications and Allergies Home Medications Medication Instructions Recorded Confirmed Type Omeprazole [PriLOSEC] 20 mg PO BID PRN 03/06/14 08/31/18 History Potassium Chloride [K-Tab ER] 10 meq PO BID 03/06/14 08/31/18 History Pravastatin Sodium [Pravachol] 80 mg PO HS 03/06/14 08/31/18 History Rivaroxaban [Xarelto] 20 mg PO W/SUPPER 03/06/14 08/31/18 History Cholecalciferol [Vitamin D3] 1,000 unit PO DAILY 10/26/16 08/31/18 History Metoprolol Tartrate [Lopressor] 25 mg PO DAILY 11/04/16 08/31/18 History Vit C/E/Zn/Coppr/Lutein/Zeaxan 1 cap PO BID 11/04/16 08/31/18 History [Preservision Areds 2 Softgel] Cetirizine HCl [Zyrtec] 10 mg PO DAILY 12/02/17 08/31/18 History Biotin 2,000 mcg PO DAILY 03/07/18 08/31/18 History Calcium Carbonate [Calcium] 600 mg PO DAILY 03/07/18 08/31/18 History Cyanocobalamin (Vitamin B-12) 1,000 mcg PO DAILY 03/07/18 08/31/18 History [Vitamin B-12] Cyclobenzaprine [Flexeril] 5 mg PO TID PRN 08/31/18 08/31/18 History Docusate [Colace] 200 mg PO DAILY 08/31/18 08/31/18 History Fluconazole [Diflucan] See Taper PO DAILY 08/31/18 08/31/18 History Fluticasone Nasal [place] [Flonase 1 spray EA NOSTRIL BID 08/31/18 08/31/18 History Nasal [place]] Furosemide [Lasix] 20 mg PO DAILY 08/31/18 08/31/18 History Lisinopril [Prinivil] 5 mg PO DAILY 08/31/18 08/31/18 History Magnesium Oxide [Mag-Ox] 250 mg PO DAILY 08/31/18 08/31/18 History Meclizine [Antivert] 25 mg PO TID PRN 08/31/18 08/31/18 History Nystatin 100,000 Unit/ml Susp 5 ml PO QID 08/31/18 08/31/18 History [Mycostatin Oral Susp] Ondansetron [Zofran ODT] 4 mg PO Q6H PRN 08/31/18 08/31/18 History Pantoprazole Sodium [Protonix] 40 mg PO DAILY 08/31/18 08/31/18 History Allergies Allergy/AdvReac Type Severity Reaction Status Date / Time codeine AdvReac stomach Verified 08/31/18 11:54 upset, UNLESS TAKEN WITH FOOD BED SHEETS AdvReac Unknown Itching/bum Uncoded 08/31/18 11:39 ps Physical Exam Vitals: Vital Signs Temp Pulse Resp BP Pulse Ox 08/31/18 16:00 104 H 24 148/91 96 08/31/18 15:40 105 H 24 153/102 97 08/31/18 15:30 150 H 22 151/99 96 08/31/18 14:35 101 H 22 134/91 96 08/31/18 13:31 105 H 20 133/93 97 08/31/18 11:36 97.8 F 103 H 20 118/73 94 L Intake and Output 08/31/18 08/31/18 08/31/18 06:59 14:59 22:59 Output Total 1500 Balance -1500 Output: Chest Tube Drainage 1500 Chest Tube Right Mid- 1500 Axillary Chest Other: Weight 65.771 kg General Appearance no diaphoresis, no respiratory distress, speech not interrupted by breaths, no dyspnea, no pallor, not cachectic, well nourished, appears well HEENT no pursed lip breathing, no jugular venous distention, no mucous membrane cyanosis, no perioral cyanosis, mallampati classification: class 1 Chest no barrel chest, no retractions, no sternocleidomastoid muscle contractions, no supraclavicular retractions, no intercostal retractions, no prolonged expiratory wheezing, no decreased air movement, no rhonchi, no hyperinflation, decreased air movement (diminished breath sounds in the right lung basealong with dullness to percussion his relationship with pleural effusion), the patient is postop mastectomy Heart no right ventricular heave, no distant heart sounds, no s3 gallop, (normal ) jugular vein: jugular venous distention: by 0cm, Murmurs: Unspecified Location : Systolic: Grade 3 / IV (systolic ejection murmur G3/6) GI bowel sounds: hyperactive (borborygmi), bowel sounds: diminished or absent Extremities no cyanosis, no clubbing, no edema Neurologic no decreased mental status, no somnolence, no confusion Examination of the skin revealed no evidence of significant rashes, suspicious appearing nevi or other concerning lesions. Results - Laboratory Findings CBC and BMP: 08/31/18 12:44 08/31/18 12:44 PT/INR, D-dimer PT 10.7 sec (9.0-12.0) 08/31/18 12:44 INR 1.1 (<1.2) 08/31/18 12:44 Abnormal lab findings: Abnormal Labs 08/31/18 08/31/18 12:44 12:44 Lymphocytes # 0.9 L Creatinine 0.45 L Total Protein 5.8 L Albumin 3.1 L - Diagnostic Findings Chest x-ray: image reviewed Assessment and Plan Plan: Assessment 1 right-sided hydropneumothorax, post chest tube insertion and removal of a 1500 mL of pleural fluid and there is positive air leak with some residual pneumothorax and subsequent chest x-ray. 2 adenocarcinoma of the lung, stage IV. The patient is currently on immunotherapy and she received her first session of immunotherapy through Dr. Velez today. 3 COPD with a baseline FEV1 of 50% of predicted 4 malignant right-sided pleural effusion 5 aortic valve stenosis, nonsurgical case and the patient has a valve area of 0.8 cm 6 paroxysmal atrial fibrillation currently on anticoagulation with Xarelto 7 worsening shortness of breath secondary to above. The patient's increased dyspnea with essentially due to development of a right-sided pleural effusion and pneumothorax/hydropneumothorax 8 nonocclusive coronary artery disease 9 hypothyroidism 10, DrKalli stenosis 11 hyperlipidemia 12 trigeminal neuralgia 13 chronic ALLERGIC rhinitis 14 remote history of breast cancer with a previous right mastectomy Plan Chest tube was inserted. The patient did well during the procedure. Right pleural effusion was evacuated. The patient will be given incentive spirometer. Daily chest x-rays. Dilaudid for pain control. We'll consider pleurodesis knowing that the patient has a right-sided pleural effusion and pleurodesis will be of value specially if the patient has full expansion of the right lung. The patient will be admitted to the hospital. We'll hold Xarelto for now. We'll continue to follow.
[2018-08-31] MEDS ORDERED: ONDANSETRON ODT 4 MG TAB PO PRN (18:09)
[2018-08-31] MEDS ORDERED: RIVAROXABAN 20 MG TAB PO SCH (18:30)
[2018-08-31] MEDS: HYDROmorphone 1 MG/ML 1 ML SYRINGE IVP PRN (20:03)
[2018-08-31] MEDS: VIT A,C & E-LUTEIN-MINERALS 1 EACH TAB PO SCH (20:09)
[2018-08-31] MEDS: NYSTATIN 100,000 UNIT/ML SUSP 500,000 UNIT/5 ML CUP PO SCH ×2 (20:09→22:40)
[2018-08-31] MEDS: POTASSIUM CHLORIDE ER 10 MEQ TAB.ER.PRT PO SCH (20:09)
[2018-08-31] MEDS: PRAVASTATIN SODIUM 80 MG TAB PO SCH (20:09)
[2018-08-31] MEDS ORDERED: LACTULOSE 20 GM/30 ML CUP PO PRN (22:24)
[2018-08-31] MEDS ORDERED: ACETAMINOPHEN TAB 325 MG TAB PO PRN (22:24)
[2018-08-31] MEDS: ALPRAZolam 0.25 MG TAB PO PRN (22:39)
[2018-08-31] MEDS: MELATONIN 3 MG TABLET PO PRN (22:39)
[2018-08-31] MEDS: FLUCONAZOLE 100 MG TAB PO SCH (22:40)
--- NOTE | 2018-08-31 23:41 | HP ---
HISTORY AND PHYSICAL DATE OF ADMISSION: 08/31/2018 DATE OF SERVICE: 08/31/2018 PRESENTING COMPLAINT: Short of breath. HISTORY OF PRESENTING COMPLAINT: This is a very pleasant 83-year-old patient of Dr. Cordova. She has a diagnosis of metastatic adenocarcinoma of the lung. The patient was originally diagnosed in 2011 through an anterior mediastinal endoscopy. The patient did undergo chemoradiation therapy and was in remission for quite a while. Patient's chronic stable medical conditions include CHF, atrial fibrillation, aortic valve stenosis 0.8 cm2, coronary artery disease with known occlusive disease; also breast cancer with mastectomy. Patient subsequently on a followup was found to have a right upper lobe lesion and confirmed the diagnosis. Patient then had a PET scan done on 07/30/2018 that showed increasing mass in the right upper lobe area and there were multiple pulmonary nodules. Patient also had developed right pleural effusion. The patient had thoracentesis carried out by Dr. Mitchell. It turned out to be malignant. Patient was sent to Dr. Aldana. Patient did get her fist dose of immunotherapy today at [facility]. Patient became short of breath and was sent down to the ER. Patient was found to have right-sided hydropneumothorax with large fluid component. A chest tube was placed. A total of 1500 mL of fluid was obtained and patient was thereby admitted for the same. Patient has been losing weight. Appetite has been down. Lives by herself. Tired and rundown. REVIEW OF SYSTEMS: CONSTITUTIONAL: Tired. Loss of appetite, weight loss. HEENT: Some trouble swallowing. Does drink full liquids. RESPIRATORY: As above. CARDIOVASCULAR: Occasional chest pain. GASTROINTESTINAL: Heartburn. GENITOURINARY: None. MUSCULOSKELETAL: Arthritic pain in the joints. DERMATOLOGICAL: None. HEMATOLOGICAL: None. LYMPHATICS: None. PSYCHIATRY: Anxious. NEUROLOGICAL: None. PAST MEDICAL HISTORY: 1. Atrial fibrillation. 2. Angina. 3. COPD. 4. GERD. 5. Hyperlipidemia. 6. Hypertension. 7. Osteoarthritis. 8. Dysphagia. 9. Stage IV metastatic [id number] lung cancer. 10.Adenocarcinoma with malignant right pleural effusion. 11.History of breast cancer with right mastectomy. 12.Macular degeneration. 13.Severe aortic stenosis with a valve area of 0.8 cm2. 14.Trigeminal neuralgia. 15.Non-occlusive coronary artery disease. PAST SURGICAL HISTORY: 1. Appendectomy. 2. Bowel resection. 3. Breast surgery. 4. Cardiac catheterization. 5. Right mastectomy. 6. Left breast lumpectomy. 7. Right-sided thoracentesis. 8. Right shoulder surgery. 9. Bilateral cataracts. SOCIAL HISTORY: Lives alone. Patient stopped smoking about 30 years ago; smoked close to 40 years of about 2 packs per day. Alcohol none. FAMILY HISTORY: Breast cancer. HOME MEDICATIONS: 1. Diflucan taper. 2. Zofran 4 mg q.6 p.r.n. 3. Nystatin 5 mL p.o. q.i.d. 4. Colace 200 mg p.o. daily. 5. Xarelto 20 mg with supper. 6. Pravachol 80 mg at bedtime. 7. Flexeril 5 mg p.o. t.i.d. p.r.n. 8. Protonix 40 mg p.o. daily. 9. Zyrtec 10 mg p.o. daily. 10.PreserVision Areds-2 one capsule p.o. b.i.d. 11.Potassium 10 mEq p.o. b.i.d. 12.Prilosec 20 mg p.o. b.i.d. p.r.n. 13.Lopressor 25 mg p.o. daily. 14.Vitamin D3 1000 units p.o. daily. 15.Antivert 25 mg t.i.d. p.r.n. 16.Magnesium oxide 250 mg p.o. daily. 17.Prinivil 5 mg p.o. daily. 18.Lasix 20 mg p.o. daily. 19.Flonase 1 spray each nostril b.i.d. 20.Vitamin B12 1000 mcg p.o. daily. 21.Calcium 600 mg p.o. daily. 22.Biotin 2000 mcg p.o. daily. ALLERGIES: CODEINE. PHYSICAL EXAMINATION: Temperature 98, pulse 126, respiration 17, blood pressure 133/87, pulse ox 92% on 2 L. GENERAL APPEARANCE: A bit tired. Average build. Sitting up, tired-appearing. EYES: Pupils equal. Conjunctivae pale. HEENT: External appearance of nose and ears normal. Oral cavity normal. NECK: JVD unable to assess. Mass not palpable. RESPIRATORY: Effort increased. LUNGS: Decreased breath sounds. CHEST WALL: Right-sided chest tube. CARDIOVASCULAR: First and second sounds normal. Minimal edema. ABDOMEN: Soft, nontender. Liver and spleen not palpable. LYMPHATIC: No lymph node palpable in neck or axillae. PSYCHIATRY: Alert and oriented x3. Mood and affect slightly anxious-appearing. NEUROLOGICAL: Pupils equal. Cranial nerves grossly intact. Power and sensation: able to move all 4 limbs. INVESTIGATIONS: White count 6.2, hemoglobin 13.3, potassium 3.8, BUN 7, creatinine 0.45. ProBNP 430. EKG tracing, reviewed by me, shows normal sinus rhythm. Chest x-ray film, personally reviewed by me, showed right-sided pleural effusion and pneumothorax following chest tube placement. ASSESSMENT: 1. Large right hydropneumothorax, predominant pleural effusion, malignant, status post right-sided chest tube placement. 2. Stage IV metastatic adenocarcinoma of the lung. 3. Paroxysmal atrial fibrillation, currently in sinus rhythm. 4. Chronic obstructive pulmonary disease in an ex-smoker. 5. Gastroesophageal reflux disease. 6. Hyperlipidemia. 7. Essential hypertension. 8. Primary osteoarthritis. 9. Macular degeneration. 10.Severe aortic stenosis with a valve area of 0.8 cm2. 11.Trigeminal neuralgia. 12.Coronary artery disease, non-occlusive. PLAN: Home medications are resumed. Patient was seen by Dr. Mitchell in the ER, who put in the chest tube. Oxygen will be supplemented. Patient will be put on a full liquid diet with recurrence of dysphagia she has been having. This has been worked up in the past. Patient is on Xarelto. Patient's overall prognosis is guarded. Will also have Dr. Aldana's team see the patient. Prognosis guarded. MMODL / IJN: [id number] /
[2018-09-01] MEDS: HYDROmorphone 1 MG/ML 1 ML SYRINGE IVP PRN ×5 (00:40→22:05)
[2018-09-01] MEDS: PANTOPRAZOLE 40 MG TABLET PO SCH (07:07)
[2018-09-01] MEDS ORDERED: BIOTIN 2000 MCG PO SCH (09:00)
[2018-09-01] MEDS: LISINOPRIL 5 MG TAB PO SCH (09:38)
[2018-09-01] MEDS: FLUCONAZOLE 100 MG TAB PO SCH (09:39)
[2018-09-01] MEDS: METOPROLOL TARTRATE 25 MG TAB PO SCH (09:39)
[2018-09-01] MEDS: MAGNESIUM OXIDE 400 MG TAB PO SCH (09:39)
[2018-09-01] MEDS: VIT A,C & E-LUTEIN-MINERALS 1 EACH TAB PO SCH ×2 (09:39→22:28)
[2018-09-01] MEDS: FUROSEMIDE 20 MG TAB PO SCH (09:39)
[2018-09-01] MEDS: CALCIUM CARBONATE 500 MG CHEWABLE PO SCH (09:39)
[2018-09-01] MEDS: NYSTATIN 100,000 UNIT/ML SUSP 500,000 UNIT/5 ML CUP PO SCH ×4 (09:39→22:26)
[2018-09-01] MEDS: POTASSIUM CHLORIDE ER 10 MEQ TAB.ER.PRT PO SCH ×2 (09:39→22:27)
[2018-09-01] MEDS: CYANOCOBALAMIN 500 MCG TAB PO SCH (09:39)
[2018-09-01] MEDS: DOCUSATE 100 MG CAP PO SCH (09:39)
--- NOTE | 2018-09-01 11:15 | XR ---
EXAMINATION TYPE: XR chest 1V DATE OF EXAM: 09/01/2018 COMPARISON: Prior chest x-ray 08/31/2018 HISTORY: Chest tube, pneumothorax TECHNIQUE: Single frontal view of the chest is obtained. FINDINGS: Patient is rotated. Right-sided chest tube remains in place. Heart size is stable. Surgica l clips present in the left axilla, there are overlying cardiac leads. There is improvement in patien t's right-sided pneumothorax. Abnormal increased density persists in the right lung base. Retained co ntrast present within the colon. IMPRESSION: There is improvement in right-sided pneumothorax. There is likely basilar atelectasis an d possible associated effusion, difficult to exclude pneumonia.
[2018-09-01] MEDS: CLOTRIMAZOLE TROCHE 10 MG TROCHE MUCOUS MEM SCH ×3 (12:09→22:26)
--- NOTE | 2018-09-01 13:52 | P.CONS ---
History of Present Illness - Reason for Consult Consult date: 09/01/18 Dysphagia failed MBS Requesting physician: Wilner Mitchell - Chief Complaint Shortness of breath - History of Present Illness 83-year-old female past medical history breast cancer/mastectomy, paroxysmal A. fib maintained on Xarelto, severe aortic stenosis, COPD previous non-small cell lung CA 2011 status post chemotherapy recently diagnosed last month with stage IV metastatic adenocarcinoma long after undergoing diagnostic thoracentesis with evidence of malignant pleural effusion. Admitted with worsening shortness of breath hydropneumothorax status post chest tube insertion. Consultation requested for dysphagia. Patient states over the last 2-3 months she's had difficulty swallowing in the pre-esophageal oropharyngeal region. Minimal weight loss. She has been drinking protein shakes at home. She is able to tolerate a protein based liquid shake diet without choking, coughing or gagging however she's not able to tolerate thicker solids or meats/breads. She can handle mashed potato oatmeal consistencies. Modified barium swallow was attempted but incomplete. EGD March 2018 small hiatal hernia and no evidence of esophageal stricture. Denies hemoptysis hematemesis hematochezia melena. Review of Systems Constitutional: Denies fever, chills, sweats, weight gain, or loss. HEENT: Negative for migraines, blurred vision or loss, earaches, drainage, tinnitus, oral mucosal lesions, dysphagia, or odynophagia. CARDIAC: Negative for chest pain, arrhythmias, or palpitation. RESPIRATORY: Admitted with shortness of breath, denies hemoptysis, cough, or sputum production. GI: See HPI for pertinent findings. : Negative for hematuria, urgency, frequency, polyuria, or dysuria. GYNc: Negative vaginal discharge. MUSCULOSKELETAL: Negative for muscle aches, swelling, arthritis, and arthralgias. NEUROLOGIC: Negative for stroke or TIA. ENDOCRINE: Negative for thyroid problems. SKIN: Negative for rash or itching. 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 at time of admit."c/o difficulty swallowing needs mushy food", COPD with an FEV1 of 50% of predicted, "pt receiving immunotherapy"history of" stage 4 metastatic non-small cell lung cancer adenocarcinoma with a malignant right-sided pleural effusion", history of breast cancer with a previous right mastectomy,per family in may dx w/ tumor / mass in colon has'nt had any tx or sx" macular degeneration, moderate to severe aortic stenosis with a valve area of 0.8 cm, chronic atrial fibrillation, hypertension, hyperlipidemia, acid reflux, osteoarthritis, trigeminal neuralgia , previous history of a clot behind the lt eye, , acid reflux, cardiac stenosis , coronary artery disease with nonocclusive CAD, hyperlipidemia, chronic ALLERGIC rhinitis History of Any Multi-Drug Resistant Organisms: None Reported Past Surgical History: Appendectomy, Bowel Resection, Breast Surgery, Heart Catheterization, Orthopedic Surgery, Tubal Ligation Additional Past Surgical History / Comment(s): RT MASTECTOMY, LT BREAST LUMPECTOMY.rt sided thorcentesis RT SHOULDER SURG X2. ESOPHAGUS "SHAVED D/T BRONCHITIS.", elise cataracts, chest tube Past Anesthesia/Blood Transfusion Reactions: Previous Problems w/ Anesthesia Additional Past Anesthesia/Blood Transfusion Reaction / Comm: HX SEVERE HEADACHES LONG TIME AGO.. daughter stated that "in past with aa pt's poatssium would jump up" Past Psychological History: No Psychological Hx Reported Additional Psychological History / Comment(s): pt lives alone in 2 story home but stays on main level. no home care servies. has nebulizer. Smoking Status: Former smoker Past Alcohol Use History: None Reported Additional Past Alcohol Use History / Comment(s): started smoking at age 14 smoked 2 PPD, QUIT 1988 EST. Past Drug Use History: None Reported - Past Family History Mother Daughter(s) Family Medical History: Cancer Daughter(s) Family Medical History: Cancer Additional Family Medical History / Comment(s): breast Mother Family Medical History: Cancer Additional Family Medical History / Comment(s): breast Medications and Allergies Home Medications Medication Instructions Recorded Confirmed Type Omeprazole [PriLOSEC] 20 mg PO BID PRN 03/06/14 08/31/18 History Potassium Chloride [K-Tab ER] 10 meq PO BID 03/06/14 08/31/18 History Pravastatin Sodium [Pravachol] 80 mg PO HS 03/06/14 08/31/18 History Rivaroxaban [Xarelto] 20 mg PO W/SUPPER 03/06/14 08/31/18 History Cholecalciferol [Vitamin D3] 1,000 unit PO DAILY 10/26/16 08/31/18 History Metoprolol Tartrate [Lopressor] 25 mg PO DAILY 11/04/16 08/31/18 History Vit C/E/Zn/Coppr/Lutein/Zeaxan 1 cap PO BID 11/04/16 08/31/18 History [Preservision Areds 2 Softgel] Cetirizine HCl [Zyrtec] 10 mg PO DAILY 12/02/17 08/31/18 History Biotin 2,000 mcg PO DAILY 03/07/18 08/31/18 History Calcium Carbonate [Calcium] 600 mg PO DAILY 03/07/18 08/31/18 History Cyanocobalamin (Vitamin B-12) 1,000 mcg PO DAILY 03/07/18 08/31/18 History [Vitamin B-12] Cyclobenzaprine [Flexeril] 5 mg PO TID PRN 08/31/18 08/31/18 History Docusate [Colace] 200 mg PO DAILY 08/31/18 08/31/18 History Fluconazole [Diflucan] See Taper PO DAILY 08/31/18 08/31/18 History Fluticasone Nasal Cunningham [Flonase 1 spray EA NOSTRIL BID 08/31/18 08/31/18 History Nasal Cunningham] Furosemide [Lasix] 20 mg PO DAILY 08/31/18 08/31/18 History Lisinopril [Prinivil] 5 mg PO DAILY 08/31/18 08/31/18 History Magnesium Oxide [Mag-Ox] 250 mg PO DAILY 08/31/18 08/31/18 History Meclizine [Antivert] 25 mg PO TID PRN 08/31/18 08/31/18 History Nystatin 100,000 Unit/ml Susp 5 ml PO QID 08/31/18 08/31/18 History [Mycostatin Oral Susp] Ondansetron [Zofran ODT] 4 mg PO Q6H PRN 08/31/18 08/31/18 History Pantoprazole Sodium [Protonix] 40 mg PO DAILY 08/31/18 08/31/18 History Allergies Allergy/AdvReac Type Severity Reaction Status Date / Time codeine AdvReac stomach Verified 08/31/18 11:54 upset, UNLESS TAKEN WITH FOOD BED SHEETS AdvReac Unknown Itching/bum Uncoded 08/31/18 11:39 ps Physical Exam Vitals: Vital Signs Temp Pulse Pulse Pulse Resp BP BP 09/01/18 12:00 97.9 F 102 H 18 115/68 09/01/18 08:00 98.0 F 104 H 104 H 18 122/74 09/01/18 04:00 97.0 F L 99 18 128/73 09/01/18 00:00 98.9 F 54 L 16 109/75 08/31/18 22:24 08/31/18 20:00 98.0 F 126 H 17 133/87 08/31/18 17:36 98.1 F 118 H 18 126/76 08/31/18 17:00 98.0 F 110 H 26 H 105/85 08/31/18 16:00 104 H 24 148/91 08/31/18 15:40 105 H 24 153/102 08/31/18 15:30 150 H 22 151/99 08/31/18 14:35 101 H 22 134/91 Pulse Ox 09/01/18 12:00 96 09/01/18 08:00 97 09/01/18 04:00 96 09/01/18 00:00 92 L 08/31/18 22:24 95 08/31/18 20:00 92 L 08/31/18 17:36 98 08/31/18 17:00 93 L 08/31/18 16:00 96 08/31/18 15:40 97 08/31/18 15:30 96 08/31/18 14:35 96 Intake and Output 08/31/18 09/01/18 09/01/18 22:59 06:59 14:59 Intake Total 630 Output Total 1800 50 0 Balance -1800 -50 630 Intake: Oral 630 Output: Chest Tube Drainage 1800 50 0 Chest Tube Right Mid- 1800 50 0 Axillary Chest Other: Voiding Method Bedpan Bedpan Weight 65 kg 65 kg General appearance: The patient is alert, oriented, in no acute distress. HET: Head is normocephalic and atraumatic. Pupils are equal and reactive. Oropharynx is clear without lesions. Neck: Supple without lymphadenopathy. Trachea midline. Heart: S1 S2. Lungs: No crackles or wheezes are heard. Right-sided chest tube. Diminished bilaterally in bases. Abdomen: Soft, nontender, nondistended with bowel sounds. No peritoneal signs. No palpable organomegaly or masses. Extremities: Normal skin color and turgor. No cyanosis, rash, ulceration, clubbing, or edema. Radial and pedal pulses are 2/4 bilaterally. Neurological: No focal deficits. Strength and sensation are grossly intact. Results CBC & Chem 7: 08/31/18 12:44 08/31/18 12:44 Assessment and Plan (1) Dysphagia Narrative/Plan: 83-year-old female with a history of lung cancer diagnosed last month with recurrent stage IV metastatic adenocarcinoma admitted with dyspnea hydropneumothorax with complaints of dysphagia in the posterior pharyngeal upper esophageal region with thicker substances meats and breads but able to tolerate liquids. Suspect dysphagia is not obstructive most likely her difficulty with deglutition is related to the changes in dynamics of her underlying lung status COPD. Current Visit: Yes Status: Acute Code(s): R13.10 - DYSPHAGIA, UNSPECIFIED SNOMED Code(s): 12799033 (2) Lung cancer Current Visit: Yes Status: Acute Code(s): C34.90 - MALIGNANT NEOPLASM OF UNSP PART OF UNSP BRONCHUS OR LUNG SNOMED Code(s): 718119583 (3) Hydropneumothorax Current Visit: Yes Status: Acute Code(s): J94.8 - OTHER SPECIFIED PLEURAL CONDITIONS SNOMED Code(s): 63147750 (4) Atrial fibrillation Narrative/Plan: Maintained on anticoagulation Current Visit: Yes Status: Chronic Code(s): I48.91 - UNSPECIFIED ATRIAL FIBRILLATION SNOMED Code(s): 20395647 (5) COPD (chronic obstructive pulmonary disease) Current Visit: Yes Status: Chronic Code(s): J44.9 - CHRONIC OBSTRUCTIVE PULMONARY DISEASE, UNSPECIFIED SNOMED Code(s): 75524492 Plan: 1. Recommend dietitian consultation for nutritional assessment caloric need as well as speech pathologist to assess which types of liquids patient can consume ; oatmeal mashed potato consistency etc. Avoid meats and breads. PEG tube was discussed however patient is declining at this time. Presently tolerating protein shakes without coughing gagging or choking. Will check prealbumin. We' ll follow with you. EGD not planned at this time. Thank you for this kind referral and the opportunity to participate in the care of your patient. This consultation was discussed with Dr. Caicedo. The impression and plan of care have been directed as dictated.
--- NOTE | 2018-09-01 14:12 | P.PN ---
Subjective Progress Note Date: 09/01/18 Principal diagnosis: Right-sided hydropneumothorax, post chest tube insertion This is an 83 -year-old female patient who has currently metastatic adenocarcinoma of the lung. The patient is known to have COPD and previous history of non-small cell lung cancer. The patient's original diagnosis of lung cancer was established in 2011 through an anterior mediastinal endoscopy. Following that the patient underwent chemoradiation therapy. She responded very well and she remained in remission for many years. As for COPD, the patient is an FEV1 of 50% of predicted and she has also underlying comorbidities including CHF, chronic atrial fibrillation, aortic valve stenosis and the patient has moderate to severe ASO with a valve area of 0.8 cm, coronary artery disease with nonocclusive disease based on the previous cardiac catheterization,, and previous history of breast cancer, and the patient is post mastectomy. The patient upon follow-up was found to have a right upper lobe lesion that was initially measuring 1.8 x 1.6 cm in size in addition to some smaller pretracheal lymph nodes measuring 9 mm. Based on this, the patient was sent for a fine-needle aspiration that did not yield any diagnosis of malignancy. Upon subsequent follow-up, the patient underwent a follow-up CAT scan imaging that showed enlargement of the right upper lobe mass and the PET scan that was done on 07/30/2018 showed increasing mass in the right middle lobe area measuring 2.8 cm in size with a maximum SUV of 8 addition to smaller 7 mm precarinal lymph nodes. There are also numerous pulmonary nodules in the left mid and the left lower lung area measuring up to 8 mm in size and few scattered pulmonary nodules on the right largest being about 2 mm in size. Patient also developed a right-sided pleural effusion. I performed a diagnostic thoracentesis on this patient. A total of 900 mL of pleural fluid was aspirated. The fluid life tester outboard motors to be malignant and the patient was referred to Dr. Corcoran for treatment and the patient is currently on immunotherapy. The patient came into the emergency department today because of worsening shortness of breath. An x-ray was done and it showed a estimated 30% right- sided hydropneumothorax with a large fluids component attributing the mediastinum and there was some limited shift to the right. Based on this, the patient was seen in emergency department and a chest tube was inserted. I inserted a chest tube and a total of 1500 of pleural fluid was aspirated immediately. There was a positive air leak. Subsequent chest x-ray showed interval improvement of a right-sided hydropneumothorax. There was still some stable pneumothorax in the right apex still seen. Tube was in a good location. The procedure without without any complications. The patient will be admitted to the hospital for now. Her underlying hemodynamics is stable for now. She is expressing some pain along the right chest area for which she is getting Dilaudid 0.5 mg every 6-8 hours. At that the patient was also having difficulties with swallowing. Previous EGD evaluation was negative. She underwent a recent modified barium swallow that showed silent penetration with coating of the vocal cords. After couple of swallows, there was a concern of aspiration based on that the patient had the procedure terminated. On 09/01/2018 patient seen in follow-up. Breathing easier today, less coughing. Right-sided chest tube is in place, no air leak noted, patient had a total of 1850 ML of serosanguineous pleural fluid since the insertion of the chest tube. Currently on 2 L per nasal cannula, with pulse ox of 96%, patient is afebrile, slightly tachycardic, heart rate of 102 BPM. States she is breathing much easier today. Today's chest x-ray has been reviewed by Dr. Mitchell, and shows improvement in the appearance of right-sided pneumothorax, basilar atelectasis. Patient is complaining of difficulty swallowing, and she underwent a recent modified barium swallow was not completed in view of silent penetration. We will aske GI service and speech therapy to reevaluate patient in regards to dysphagia. Objective - Vital Signs Vital signs: Vital Signs Temp 97.9 F 09/01/18 12:00 Pulse 102 H 09/01/18 12:00 Resp 18 09/01/18 12:00 BP 115/68 09/01/18 12:00 Pulse Ox 96 09/01/18 12:00 Intake & Output 08/31/18 09/01/18 09/01/18 18:59 06:59 18:59 Intake Total 630 Output Total 1800 50 0 Balance -1800 -50 630 Weight 65.771 kg 65 kg 65 kg Intake: Oral 630 Output: Chest Tube Drainage 1800 50 0 Chest Tube Right Mid- 1800 50 0 Axillary Chest Other: Voiding Method Bedpan - Exam General Appearance no diaphoresis, no respiratory distress, speech not interrupted by breaths, no dyspnea, no pallor, not cachectic, well nourished, appears well HEENT no pursed lip breathing, no jugular venous distention, no mucous membrane cyanosis, no perioral cyanosis, mallampati classification: class 1 Chest no barrel chest, no retractions, no sternocleidomastoid muscle contractions, no supraclavicular retractions, no intercostal retractions, no prolonged expiratory wheezing, no decreased air movement, no rhonchi, no hyperinflation, decreased air movement (diminished breath sounds in the right lung basealong with dullness to percussion his relationship with pleural effusion), the patient is postop mastectomy. Lung sounds are diminished over right base, overall diminished breath sounds bilaterally., More so on the right base. Right-sided chest tube is in place, with a total of 1850 of serosanguineous pleural fluid out since insertion of chest tube on 09/01/2018, oh air leak noted, the chest tube is connected to wall suction. Heart no right ventricular heave, no distant heart sounds, no s3 gallop, (normal ) jugular vein: jugular venous distention: by 0cm, Murmurs: Unspecified Location : Systolic: Grade 3 / IV (systolic ejection murmur G3/6) GI bowel sounds: hyperactive (borborygmi), bowel sounds: diminished or absent Extremities no cyanosis, no clubbing, no edema Neurologic no decreased mental status, no somnolence, no confusion Examination of the skin revealed no evidence of significant rashes, suspicious appearing nevi or other concerning lesions. - Labs CBC & Chem 7: 08/31/18 12:44 08/31/18 12:44 Assessment and Plan Plan: 1 right-sided hydropneumothorax, post chest tube insertion and removal of a 1500 mL of pleural fluid and there is positive air leak with some residual pneumothorax and subsequent chest x-ray. 2 adenocarcinoma of the lung, stage IV. The patient is currently on immunotherapy and she received her first session of immunotherapy through Dr. Velez today. 3 COPD with a baseline FEV1 of 50% of predicted 4 malignant right-sided pleural effusion 5 aortic valve stenosis, nonsurgical case and the patient has a valve area of 0.8 cm 6 paroxysmal atrial fibrillation currently on anticoagulation with Xarelto 7 worsening shortness of breath secondary to above. The patient's increased dyspnea with essentially due to development of a right-sided pleural effusion and pneumothorax/hydropneumothorax 8 nonocclusive coronary artery disease 9 hypothyroidism 10, DrKalli stenosis 11 hyperlipidemia 12 trigeminal neuralgia 13 chronic ALLERGIC rhinitis 14 remote history of breast cancer with a previous right mastectomy Plan: Continue the chest tube to wall suction. Today's chest x-ray has been reviewed , and shows improvement in the appearance of the right-sided hydropneumothorax. There has been a total of 18 50 mL of pleural effusion evacuated since insertion of chest tube yesterday, patient is breathing easier, less coughing, 2 L per nasal cannula. No fever or chills. We will request of GI consultation and speech evaluation in regards to patient's symptoms of dysphagia. May continue the Xarelto. Proceed with the pleurodesis at a later date. I performed a history & physical examination of the patient and discussed their management with my nurse practitioner, Leela Ch. I reviewed the nurse practitioner's note and agree with the documented findings and plan of care. Lung sounds are positive for diminished breath sounds over right lower. The findings and the impression was discussed with the patient. I attest to the documentation by the nurse practitioner. Time with Patient: Less than 30
--- NOTE | 2018-09-01 15:00 | P.PCN ---
Date of Procedure: 08/31/18 Preoperative Diagnosis: Right-sided hydropneumothorax Postoperative Diagnosis: Right-sided hydropneumothorax, right middle lobe lung mass, malignant right- sided pleural effusion Procedure(s) Performed: Chest tube insertion Anesthesia: local Senior Operations Analyst #1: Wilner Mitchell Estimated Blood Loss (ml): 0 Condition: stable Disposition: floor Operative Findings: This procedure was done in the emergency department. The patient came in with a right-sided hydropneumothorax. The patient was already taken Xarelto. She has not taken her Xarelto filled this morning. Based on the urgent nature of the procedure, the procedure was done in the emergency department. The procedure including the potential complication with extended to the patient at length. A consent was signed. Following that, the patient was positioned in the usual fashion with the right upper extremity extended and placed behind her head. Right chest was exposed. The right chest was cleaned using ChloraPrep. Following that, a 1% lidocaine was used to infiltrate the skin and off for local anesthesia at the level of the anterior axillary line and the intercostal space that was around 1 below the nipple line. After applying local anesthetics , a scalpel was used to incise the chest horizontally and the subcutaneous tissue was dissected and the intercostal space was dissected and the Fortaz was ultimately inserted into the right hemithorax without any major difficulties in the space was opened using the forceps. Following that, I was able to reduce my index finger into the pleural space and palpate the space without any major difficulties. Subsequently, a 28-Sudanese chest tube was inserted into the right hemithorax and immediately a total of 1.4 L of pleural fluid and air was evacuated from the right hemithorax. The chest tube was connected to a Hemovac at the bedside. The chest tube was sutured to the chest wall using a point 0 Ethibond suture. Appropriate dressing was applied and a follow-up chest x-ray was done that showed adequate positioning of the right-sided chest tube. The procedure was done without any complications.
--- NOTE | 2018-09-01 16:03 | P.CONS ---
History of Present Illness - Reason for Consult Consult date: 09/01/18 Recurrent Cancer Requesting physician: Robin Chacon - Chief Complaint Shortness of breath - History of Present Illness Alicia has a remote history of breast cancer involving the right breast which was treated with a radical mastectomy in 1967 followed by radiation therapy. In September 2006 she was found to have an infiltrating ductal carcinoma of the left breast and underwent a lumpectomy. And had radiation therapy to that side of the chest as well. She completed five years of Arimidex in the spring of this year. She developed some chest pressure and eventually had a CT scan which showed a mass in the right middle lobe of the lung. She was seen at [facility] and underwent a mediastinoscopy which showed metastatic adenocarcinoma compatible with a lung primary. She received weekly carboplatin and Taxol given concurrently with radiation therapy. She developed some esophagitis after treatment but did receive a CR, although more recently complaining of increased dysphagia and shortness of breath. Developed pleural effusion and cytology was sent for pathology revealing metastatic adenocarcinoma, molecular testing revealed sensistivity to PDL1 inhibitor, therefore opdvio was initiated. She is status post first opdivo treatment this week. During this time she complains of a sharp pain that intermittiently comes and goes in left chest to back. as well as she having increased dysphagia, she feels everything gets stuck. A repeat barium swallow test was completed and she did not pass, we would like to hold off on feeding tube at this time, per Dr. Koenig. She has been referred to speech therapy and education to her and daughters on aspiration. She now has been admitted with worsening shortness of breath hydropneumothorax status post chest tube insertion. GI has been consulted regarding dysphagia. 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 with a malignant right-sided pleural effusion", history of breast cancer with a previous right mastectomy,per family in may dx w/ tumor / mass in colon has'nt had any tx or sx" macular degeneration, moderate to severe aortic stenosis with a valve area of 0.8 cm, chronic atrial fibrillation, hypertension, hyperlipidemia, acid reflux, osteoarthritis, trigeminal neuralgia , previous history of a clot behind the lt eye, , acid reflux, cardiac stenosis , coronary artery disease with nonocclusive CAD, hyperlipidemia, chronic ALLERGIC rhinitis History of Any Multi-Drug Resistant Organisms: None Reported Past Surgical History: Appendectomy, Bowel Resection, Breast Surgery, Heart Catheterization, Orthopedic Surgery, Tubal Ligation Additional Past Surgical History / Comment(s): RT MASTECTOMY, LT BREAST LUMPECTOMY.rt sided thorcentesis RT SHOULDER SURG X2. ESOPHAGUS "SHAVED D/T BRONCHITIS.", elise cataracts, chest tube Past Anesthesia/Blood Transfusion Reactions: Previous Problems w/ Anesthesia Additional Past Anesthesia/Blood Transfusion Reaction / Comm: HX SEVERE HEADACHES LONG TIME AGO.. daughter stated that "in past with aa pt's poatssium would jump up" Past Psychological History: No Psychological Hx Reported Additional Psychological History / Comment(s): pt lives alone in 2 story home but stays on main level. no home care servies. has nebulizer. Smoking Status: Former smoker Past Alcohol Use History: None Reported Additional Past Alcohol Use History / Comment(s): started smoking at age 14 smoked 2 PPD, QUIT 1988 EST. Past Drug Use History: None Reported - Past Family History Mother Daughter(s) Family Medical History: Cancer Daughter(s) Family Medical History: Cancer Additional Family Medical History / Comment(s): breast Mother Family Medical History: Cancer Additional Family Medical History / Comment(s): breast Medications and Allergies Home Medications Medication Instructions Recorded Confirmed Type Omeprazole [PriLOSEC] 20 mg PO BID PRN 03/06/14 08/31/18 History Potassium Chloride [K-Tab ER] 10 meq PO BID 03/06/14 08/31/18 History Pravastatin Sodium [Pravachol] 80 mg PO HS 03/06/14 08/31/18 History Rivaroxaban [Xarelto] 20 mg PO W/SUPPER 03/06/14 08/31/18 History Cholecalciferol [Vitamin D3] 1,000 unit PO DAILY 10/26/16 08/31/18 History Metoprolol Tartrate [Lopressor] 25 mg PO DAILY 11/04/16 08/31/18 History Vit C/E/Zn/Coppr/Lutein/Zeaxan 1 cap PO BID 11/04/16 08/31/18 History [Preservision Areds 2 Softgel] Cetirizine HCl [Zyrtec] 10 mg PO DAILY 12/02/17 08/31/18 History Biotin 2,000 mcg PO DAILY 03/07/18 08/31/18 History Calcium Carbonate [Calcium] 600 mg PO DAILY 03/07/18 08/31/18 History Cyanocobalamin (Vitamin B-12) 1,000 mcg PO DAILY 03/07/18 08/31/18 History [Vitamin B-12] Cyclobenzaprine [Flexeril] 5 mg PO TID PRN 08/31/18 08/31/18 History Docusate [Colace] 200 mg PO DAILY 08/31/18 08/31/18 History Fluconazole [Diflucan] See Taper PO DAILY 08/31/18 08/31/18 History Fluticasone Nasal [place] [Flonase 1 spray EA NOSTRIL BID 08/31/18 08/31/18 History Nasal [place]] Furosemide [Lasix] 20 mg PO DAILY 08/31/18 08/31/18 History Lisinopril [Prinivil] 5 mg PO DAILY 08/31/18 08/31/18 History Magnesium Oxide [Mag-Ox] 250 mg PO DAILY 08/31/18 08/31/18 History Meclizine [Antivert] 25 mg PO TID PRN 08/31/18 08/31/18 History Nystatin 100,000 Unit/ml Susp 5 ml PO QID 08/31/18 08/31/18 History [Mycostatin Oral Susp] Ondansetron [Zofran ODT] 4 mg PO Q6H PRN 08/31/18 08/31/18 History Pantoprazole Sodium [Protonix] 40 mg PO DAILY 08/31/18 08/31/18 History Allergies Allergy/AdvReac Type Severity Reaction Status Date / Time codeine AdvReac stomach Verified 08/31/18 11:54 upset, UNLESS TAKEN WITH FOOD BED SHEETS AdvReac Unknown Itching/bum Uncoded 08/31/18 11:39 ps Physical Exam Vitals: Vital Signs Temp Pulse Pulse Pulse Resp BP BP 09/01/18 12:00 97.9 F 102 H 18 115/68 09/01/18 08:00 98.0 F 104 H 104 H 18 122/74 09/01/18 04:00 97.0 F L 99 18 128/73 09/01/18 00:00 98.9 F 54 L 16 109/75 08/31/18 22:24 08/31/18 20:00 98.0 F 126 H 17 133/87 08/31/18 17:36 98.1 F 118 H 18 126/76 08/31/18 17:00 98.0 F 110 H 26 H 105/85 08/31/18 16:00 104 H 24 148/91 Pulse Ox 09/01/18 12:00 96 09/01/18 08:00 97 09/01/18 04:00 96 09/01/18 00:00 92 L 08/31/18 22:24 95 08/31/18 20:00 92 L 08/31/18 17:36 98 08/31/18 17:00 93 L 08/31/18 16:00 96 Intake and Output 09/01/18 09/01/18 09/01/18 06:59 14:59 22:59 Intake Total 630 Output Total 50 0 Balance -50 630 Intake: Oral 630 Output: Chest Tube Drainage 50 0 Chest Tube Right Mid- 50 0 Axillary Chest Other: Voiding Method Bedpan Weight 65 kg 65 kg - Constitutional General appearance: cooperative, mild distress, thin - EENT Eyes: EOMI, PERRLA, dentition normal ENT: hard of hearing, NA/AT, other, thrush - Neck no adenopathy cervical Neck: normal ROM - Respiratory Chest tube insertion Respiratory: bilateral: diminished, wheezing - Cardiovascular Rhythm: irregularly irregular - Gastrointestinal non tender General gastrointestinal: normal bowel sounds, soft - Integumentary Integumentary: pale - Neurologic No focal defects Neurologic: CNII-XII intact - Musculoskeletal Musculoskeletal: generalized weakness, strength equal bilaterally - Psychiatric Psychiatric: A&O x's 3, appropriate affect, intact judgment & insight Results CBC & Chem 7: 08/31/18 12:44 08/31/18 12:44 Chest x-ray: report reviewed Assessment and Plan (1) Dysphagia Narrative/Plan: - GI is following - Speech pathology is following as outpatient Current Visit: Yes Status: Acute Code(s): R13.10 - DYSPHAGIA, UNSPECIFIED SNOMED Code(s): 57316702 (2) Hydropneumothorax Current Visit: Yes Status: Acute Code(s): J94.8 - OTHER SPECIFIED PLEURAL CONDITIONS SNOMED Code(s): 86658362 (3) Lung cancer Narrative/Plan: - Status post treatment one of opdivo, on hold until acute situation resolves Current Visit: Yes Status: Acute Code(s): C34.90 - MALIGNANT NEOPLASM OF UNSP PART OF UNSP BRONCHUS OR LUNG SNOMED Code(s): 301596187 (4) Pain, neoplasm-related Narrative/Plan: - Fentanyl increased from 25mcg to 50mcg and prn breakthrough - COntinue with bowel regimen Current Visit: Yes Status: Acute Code(s): G89.3 - NEOPLASM RELATED PAIN ( ACUTE) (CHRONIC) SNOMED Code(s): 797550339 Plan: - Hold Opdivo until acute situation improved/resolved - GI and Pulmonary Following Physician Attestation: I have completed the full history and physical of this patient and agree with above dictation by Marilyn Grey NP, Dictated as a scribe.
[2018-09-01] MEDS: RIVAROXABAN 20 MG TAB PO SCH (17:56)
[2018-09-01] MEDS: ONDANSETRON 4 MG/2 ML VIAL IVP PRN (18:51)
--- NOTE | 2018-09-01 20:54 | PN ---
PROGRESS NOTE DATE OF SERVICE: 09/01/18. PRESENTING COMPLAINT: Short of breath. INTERVAL HISTORY: This is a patient with metastatic lung cancer, had a large malignant right pleural effusions, had a chest tube placed yesterday. 1.4 L was removed. Still draining well. Patient short of breath, got pain on that side. Tolerating some diet. Daughter is at the bedside. REVIEW OF SYSTEMS: Done for constitutional, cardiovascular, GI, pulmonary; relevant findings as above. CURRENT MEDICATIONS: Reviewed, that include Xarelto, Dilaudid for pain control. The patient's Duragesic patch was increased today by Oncology. PHYSICAL EXAMINATION: Temperature 97.9, pulse 102, respiration 18, blood pressure 115/68, pulse ox 96% on 2 L. GENERAL APPEARANCE: Sitting up tired-appearing. EYES: Pupils equal. Conjunctivae pale. HEENT: External appearance of nose and ears normal. Oral cavity normal. NECK: JVD unable to assess. Mass not palpable. RESPIRATORY: Effort increased. LUNGS: Decreased breath sounds. CHEST WALL: Right-sided chest tube. CARDIOVASCULAR: First and second sounds. No edema. ABDOMEN: Soft, nontender. Liver and spleen not palpable. PSYCHIATRY: Alert and oriented x3. Mood and affect slightly anxious-appearing. INVESTIGATIONS: No blood work from today. Chest x-ray shows right pleural effusion. Right chest tube in place. ASSESSMENT: 1. Large right hydropneumothorax predominant pleural effusion, malignant, status post right chest tube placement, 1.4 mL was initially removed. 2. Stage IV metastatic adenocarcinoma of the lung. 3. Paroxysmal atrial fibrillation, currently in sinus rhythm. 4. Chronic obstructive pulmonary disease in an ex-smoker. 5. Gastroesophageal reflux disease. 6. Hyperlipidemia. 7. Essential hypertension. 8. Primary osteoarthritis. 9. Macular degeneration. 10.Severe aortic stenosis with a valve area of 0.8 cm2 nonrheumatic. 11.Trigeminal neuralgia. 12.Coronary artery disease, nonocclusive. PLAN: Prognosis is guarded. Continue current medication and treatment plan. Follow with Pulmonary Oncology. The patient may need pleurodesis down the road depending on how she responds. MMODL / IJN: [id number] /
[2018-09-01] MEDS: ALPRAZolam 0.25 MG TAB PO PRN (22:26)
[2018-09-01] MEDS: PRAVASTATIN SODIUM 80 MG TAB PO SCH (22:26)
[2018-09-01] MEDS: MELATONIN 3 MG TABLET PO PRN (22:26)
[2018-09-02] MEDS: ONDANSETRON 4 MG/2 ML VIAL IVP PRN ×2 (03:48→13:14)
[2018-09-02] MEDS: PANTOPRAZOLE 40 MG TABLET PO SCH (06:29)
[2018-09-02] MEDS: CYANOCOBALAMIN 500 MCG TAB PO SCH (09:32)
[2018-09-02] MEDS: CALCIUM CARBONATE 500 MG CHEWABLE PO SCH (09:32)
[2018-09-02] MEDS: HYDROmorphone 1 MG/ML 1 ML SYRINGE IVP PRN ×3 (09:33→21:37)
[2018-09-02] MEDS: METOPROLOL TARTRATE 25 MG TAB PO SCH (09:33)
[2018-09-02] MEDS: DOCUSATE 100 MG CAP PO SCH (09:33)
[2018-09-02] MEDS: VIT A,C & E-LUTEIN-MINERALS 1 EACH TAB PO SCH ×2 (09:33→22:09)
[2018-09-02] MEDS: POTASSIUM CHLORIDE ER 10 MEQ TAB.ER.PRT PO SCH ×2 (09:33→21:33)
[2018-09-02] MEDS: MAGNESIUM OXIDE 400 MG TAB PO SCH (09:33)
[2018-09-02] MEDS: NYSTATIN 100,000 UNIT/ML SUSP 500,000 UNIT/5 ML CUP PO SCH ×4 (09:33→21:34)
[2018-09-02] MEDS: CLOTRIMAZOLE TROCHE 10 MG TROCHE MUCOUS MEM SCH ×4 (09:34→21:34)
[2018-09-02] MEDS: FUROSEMIDE 20 MG TAB PO SCH (09:34)
--- NOTE | 2018-09-02 09:53 | XR ---
EXAMINATION TYPE: XR chest 1V DATE OF EXAM: 09/02/2018 HISTORY: Shortness of breath. COMPARISON: 09/01/2018 TECHNIQUE: Single view of the chest is submitted. FINDINGS: Demonstrated are scattered senescent parenchymal change. Right-sided chest tube is unchanged in position. No evidence for sizable pneumothorax. Right basilar pleural effusion with underlying atelectasis or infiltrate unchanged. The left lung is clear and stab le. The heart is stable. Hilar and mediastinal structures are within normal limits. Degenerative changes are seen of the dorsal spine. IMPRESSION: 1. Right-sided chest tube is unchanged in position. No evidence for sizable pneumothorax. Right basi lar pleural effusion with underlying atelectasis or infiltrate unchanged.
[2018-09-02] MEDS: LISINOPRIL 5 MG TAB PO SCH (11:25)
[2018-09-02] MEDS ORDERED: IPRATROPIUM-ALBUTEROL 3 ML NEB INHALATION PRN (11:45)
[2018-09-02] MEDS: IPRATROPIUM-ALBUTEROL 3 ML NEB INHALATION SCH ×2 (11:53→20:04)
--- NOTE | 2018-09-02 13:00 | P.PN ---
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 No overt signs or symptoms of aspirations were observed. Patient is tolerating liquids oatmeal consistency without difficulty. Prealbumin 15. Dietitian recommendations noted. Objective - Vital Signs Vital signs: Vital Signs Temp 96.9 F L 09/02/18 11:53 Pulse 116 H 09/02/18 12:01 Resp 18 09/02/18 11:53 BP 104/58 09/02/18 11:53 Pulse Ox 96 09/02/18 11:53 Intake & Output 09/01/18 09/02/18 09/02/18 18:59 06:59 18:59 Intake Total 630 480 Output Total 0 310 40 Balance 630 -310 440 Weight 65 kg Intake: Oral 630 480 Output: Chest Tube Drainage 0 60 40 Chest Tube Right Mid- 0 60 40 Axillary Chest Urine 250 Other: Voiding Method Bedpan # Voids 2 1 - Exam General appearance: The patient is alert, oriented, in no acute distress. HET: Head is normocephalic and atraumatic. Pupils are equal and reactive. Oropharynx is clear without lesions. Neck: Supple without lymphadenopathy. Trachea midline. Heart: S1 S2. Lungs: No crackles or wheezes are heard. Right-sided chest tube. Diminished bilaterally in bases. Abdomen: Soft, nontender, nondistended with bowel sounds. No peritoneal signs. No palpable organomegaly or masses. Extremities: Normal skin color and turgor. No cyanosis, rash, ulceration, clubbing, or edema. Radial and pedal pulses are 2/4 bilaterally. Neurological: No focal deficits. Strength and sensation are grossly intact. - Labs CBC & Chem 7: 08/31/18 12:44 08/31/18 12:44 Labs: Abnormal Lab Results - Last 24 Hours (Table) 08/31/18 Range/Units 12:44 Prealbumin 15.0 L (18.0-42.0) mg/dL Assessment and Plan (1) Dysphagia Narrative/Plan: 83-year-old female with a history of lung cancer diagnosed last month with recurrent stage IV metastatic adenocarcinoma admitted with dyspnea hydropneumothorax with complaints of dysphagia in the posterior pharyngeal upper esophageal region with thicker substances meats and breads but able to tolerate liquids. 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 Current Visit: Yes Status: Acute Code(s): R13.10 - DYSPHAGIA, UNSPECIFIED SNOMED Code(s): 31216904 (2) Lung cancer Current Visit: Yes Status: Acute Code(s): C34.90 - MALIGNANT NEOPLASM OF UNSP PART OF UNSP BRONCHUS OR LUNG SNOMED Code(s): 706692456 (3) Hydropneumothorax Current Visit: Yes Status: Acute Code(s): J94.8 - OTHER SPECIFIED PLEURAL CONDITIONS SNOMED Code(s): 39185576 (4) Atrial fibrillation Narrative/Plan: Maintained on anticoagulation Current Visit: Yes Status: Chronic Code(s): I48.91 - UNSPECIFIED ATRIAL FIBRILLATION SNOMED Code(s): 46460465 (5) COPD (chronic obstructive pulmonary disease) Current Visit: Yes Status: Chronic Code(s): J44.9 - CHRONIC OBSTRUCTIVE PULMONARY DISEASE, UNSPECIFIED SNOMED Code(s): 41251024 Plan: 1. Dietary/speech recommendations appreciated. Avoid meats and breads. PEG tube was discussed however patient is declining at this time. Presently tolerating protein shakes without coughing gagging or choking. We'll follow with you. EGD not planned at this time. Assessment and plan of care discussed with Dr.. Caicedo.
--- NOTE | 2018-09-02 14:06 | P.PN ---
Subjective Progress Note Date: 09/02/18 Principal diagnosis: Right-sided hydropneumothorax, status post chest tube insertion. This is an 83 -year-old female patient who has currently metastatic adenocarcinoma of the lung. The patient is known to have COPD and previous history of non-small cell lung cancer. The patient's original diagnosis of lung cancer was established in 2011 through an anterior mediastinal endoscopy. Following that the patient underwent chemoradiation therapy. She responded very well and she remained in remission for many years. As for COPD, the patient is an FEV1 of 50% of predicted and she has also underlying comorbidities including CHF, chronic atrial fibrillation, aortic valve stenosis and the patient has moderate to severe ASO with a valve area of 0.8 cm, coronary artery disease with nonocclusive disease based on the previous cardiac catheterization,, and previous history of breast cancer, and the patient is post mastectomy. The patient upon follow-up was found to have a right upper lobe lesion that was initially measuring 1.8 x 1.6 cm in size in addition to some smaller pretracheal lymph nodes measuring 9 mm. Based on this, the patient was sent for a fine-needle aspiration that did not yield any diagnosis of malignancy. Upon subsequent follow-up, the patient underwent a follow-up CAT scan imaging that showed enlargement of the right upper lobe mass and the PET scan that was done on 07/30/2018 showed increasing mass in the right middle lobe area measuring 2.8 cm in size with a maximum SUV of 8 addition to smaller 7 mm precarinal lymph nodes. There are also numerous pulmonary nodules in the left mid and the left lower lung area measuring up to 8 mm in size and few scattered pulmonary nodules on the right largest being about 2 mm in size. Patient also developed a right-sided pleural effusion. I performed a diagnostic thoracentesis on this patient. A total of 900 mL of pleural fluid was aspirated. The fluid wrap turner to be malignant and the patient was referred to Dr. Crocoran for treatment and the patient is currently on immunotherapy. The patient came into the emergency department today because of worsening shortness of breath. An x-ray was done and it showed a estimated 30% right- sided hydropneumothorax with a large fluids component attributing the mediastinum and there was some limited shift to the right. Based on this, the patient was seen in emergency department and a chest tube was inserted. I inserted a chest tube and a total of 1500 of pleural fluid was aspirated immediately. There was a positive air leak. Subsequent chest x-ray showed interval improvement of a right-sided hydropneumothorax. There was still some stable pneumothorax in the right apex still seen. Tube was in a good location. The procedure without without any complications. The patient will be admitted to the hospital for now. Her underlying hemodynamics is stable for now. She is expressing some pain along the right chest area for which she is getting Dilaudid 0.5 mg every 6-8 hours. At that the patient was also having difficulties with swallowing. Previous EGD evaluation was negative. She underwent a recent modified barium swallow that showed silent penetration with coating of the vocal cords. After couple of swallows, there was a concern of aspiration based on that the patient had the procedure terminated. On 09/01/2018 patient seen in follow-up. Breathing easier today, less coughing. Right-sided chest tube is in place, no air leak noted, patient had a total of 1850 ML of serosanguineous pleural fluid since the insertion of the chest tube. Currently on 2 L per nasal cannula, with pulse ox of 96%, patient is afebrile, slightly tachycardic, heart rate of 102 BPM. States she is breathing much easier today. Today's chest x-ray has been reviewed by Dr. Mitchell, and shows improvement in the appearance of right-sided pneumothorax, basilar atelectasis. Patient is complaining of difficulty swallowing, and she underwent a recent modified barium swallow was not completed in view of silent penetration. We will aske GI service and speech therapy to reevaluate patient in regards to dysphagia. Patient is seen today 09/02/2018 in follow-up on the selective care unit. She is awake and alert in no acute distress. She is currently sitting up in a chair at the bedside. She does have a loose productive cough of thick sputum. Right-sided chest tube remains in place. We'll serosanguineous drainage. Positive leak with cough. X-ray continues to show right basilar pleural effusion with underlying atelectasis/infiltrate. No sizable pneumothorax. He is continued on DuoNeb inhalations. She is working well with the incentive spirometer. She is currently afebrile. Hemodynamically stable. Maintaining good O2 saturations in the 90s on 2 L/m per nasal cannula. Speech evaluation regarding her dysphagia revealed evidence of presbyesophagus. He has been seen and evaluated by GI services and she is encouraged to avoid meats and breads. A PEG tube was offered but the patient is declining at this time. No plans for EGD. Objective - Vital Signs Vital signs: Vital Signs Temp 96.9 F L 09/02/18 11:53 Pulse 116 H 09/02/18 12:01 Resp 18 09/02/18 11:53 BP 104/58 09/02/18 11:53 Pulse Ox 96 09/02/18 11:53 Intake & Output 09/01/18 09/02/18 09/02/18 18:59 06:59 18:59 Intake Total 630 480 Output Total 0 310 40 Balance 630 -310 440 Weight 65 kg Intake: Oral 630 480 Output: Chest Tube Drainage 0 60 40 Chest Tube Right Mid- 0 60 40 Axillary Chest Urine 250 Other: Voiding Method Bedpan # Voids 2 1 - Exam General Appearance no diaphoresis, no respiratory distress, speech not interrupted by breaths, no dyspnea, no pallor, not cachectic, well nourished, appears well HEENT no pursed lip breathing, no jugular venous distention, no mucous membrane cyanosis, no perioral cyanosis, mallampati classification: class 1 Chest no barrel chest, no retractions, no sternocleidomastoid muscle contractions, no supraclavicular retractions, no intercostal retractions, no prolonged expiratory wheezing, no decreased air movement, no rhonchi, no hyperinflation, decreased air movement (diminished breath sounds in the right lung basealong with dullness to percussion his relationship with pleural effusion), the patient is postop mastectomy. Lung sounds are diminished over right base, overall diminished breath sounds bilaterally., More so on the right base. Right-sided chest tube is in place, with a total of 1850 of serosanguineous pleural fluid out since insertion of chest tube on 09/01/2018, oh air leak noted, the chest tube is connected to wall suction. Heart no right ventricular heave, no distant heart sounds, no s3 gallop, (normal ) jugular vein: jugular venous distention: by 0cm, Murmurs: Unspecified Location : Systolic: Grade 3 / IV (systolic ejection murmur G3/6) GI bowel sounds: hyperactive (borborygmi), bowel sounds: diminished or absent Extremities no cyanosis, no clubbing, no edema Neurologic no decreased mental status, no somnolence, no confusion Examination of the skin revealed no evidence of significant rashes, suspicious appearing nevi or other concerning lesions. - Labs CBC & Chem 7: 08/31/18 12:44 08/31/18 12:44 Labs: Abnormal Lab Results - Last 24 Hours (Table) 08/31/18 Range/Units 12:44 Prealbumin 15.0 L (18.0-42.0) mg/dL Assessment and Plan Assessment: Impression: 1 right-sided hydropneumothorax, post chest tube insertion and removal of a 1500 mL of pleural fluid and there is positive air leak with some residual pneumothorax and subsequent chest x-ray. We will check a computed tomography scan of the chest today. 2 adenocarcinoma of the lung, stage IV. The patient is currently on immunotherapy and she received her first session of Opdivo through Dr. Corcoran 3 COPD with a baseline FEV1 of 50% of predicted 4 malignant right-sided pleural effusion 5 aortic valve stenosis, nonsurgical case and the patient has a valve area of 0.8 cm 6 paroxysmal atrial fibrillation currently on anticoagulation with Xarelto 7 worsening shortness of breath secondary to above. The patient's increased dyspnea with essentially due to development of a right-sided pleural effusion and pneumothorax/hydropneumothorax 8 nonocclusive coronary artery disease 9 hypothyroidism 10 moderate to severe aortic stenosis 11 hyperlipidemia 12 trigeminal neuralgia 13 chronic ALLERGIC rhinitis 14 remote history of breast cancer with a previous right mastectomy Plan: The patient was seen and evaluated by Dr. Mitchell. Chest x-ray was reviewed. No sizable pneumothorax. We'll go ahead and order a computed tomography scan of the chest for further evaluation of her continued right pleural effusions/ atelectasis/infiltrate. Minimal drainage from the chest tube. Small leak continues with cough. She has been seen and evaluated by GI services for her continued dysphagia. They did offer PEG tube placement however the patient declines. She was given a diet of foods to avoid. Will continue with her current treatment plan. We will add Phenergan for her cough. We'll repeat a chest x-ray in the a.m. We'll continue to follow. I, the cosigning physician, performed a history & physical examination of the patient. Lungs sounds few scattered rhonchi more so on the right lung. Maintaining good O2 saturations in the 90s on 2 L/m per nasal cannula. I discussed the assessment and plan of care with my nurse practitioner, Rehana Sanchez. I attest to the above note as dictated by her.
--- NOTE | 2018-09-02 15:13 | CT ---
EXAMINATION TYPE: CT chest wo con DATE OF EXAM: 09/02/2018 COMPARISON: 09/27/2017 HISTORY: Collapse right lung, chest tube CT DLP: 334.1 mGycm, Automated exposure control for dose reduction was used. CONTRAST: Performed injected with 0 mL of Isovue 300. TECHNIQUE: Axial images were obtained at 5 mm thick sections. Reconstructed images are reviewed on [employer] computer in the coronal plane. FINDINGS: Portion of the thyroid visualized is normal. There is a right-sided pneumothorax. Air-filled pneumothorax is small. Moderate pleural effusion is p resent. Chest tube is within the pleural fluid. There are increased lung markings within the right ruben ng field. There is a 2.5 cm peripheral mass which is larger than comparison. There is a 0.6 cm density within the posterior left lung base. Series 204 image 31. Multiple addition al punctate peripheral based nodules are present suspicious for metastatic disease. These range in si ze from 3 to 4 mm. No enlarged mediastinal or hilar adenopathy is evident. Shotty lymphadenopathy is present. The asce nding aorta diameter at the level of the main pulmonary artery is 3.5 cm. The main pulmonary artery diameter at the bifurcation is 2.3 cm. Coronary artery calcifications present. Limited CT sections are obtained through the upper abdomen. Abdomen is essentially unremarkable. Exam is limited due to barium within the colon. IMPRESSIONS: 1. Small right pneumothorax. 2. Moderate right pleural effusion. Chest tube is within the pleural effusion posteriorly. 3. Peripheral mid right lung mass. 4. Multiple peripheral punctate nodularities within the left lung suspicious for metastatic disease.
--- NOTE | 2018-09-02 15:32 | FL ---
Modified barium swallow. HISTORY: Dysphagia. Modified barium swallow was performed with the department of speech pathology. The patient was prese nted with various consistencies of barium. There is no evidence for aspiration or penetration. Full report is to follow from the department of speech pathology. Impression: Normal study.
[2018-09-02] MEDS: RIVAROXABAN 20 MG TAB PO SCH (17:43)
[2018-09-02] MEDS: PROMETHAZINE 25 MG TAB PO PRN (18:05)
--- NOTE | 2018-09-02 19:43 | PN ---
PROGRESS NOTE DATE OF SERVICE: 09/02/2018 PRESENTING COMPLAINT: Short of breath. INTERVAL HISTORY: This patient has metastatic lung cancer, had a large right malignant pleural effusion with a chest tube in place. It is draining some. The patient did have a modified barium swallow that came back to be okay. The patient is sitting up in a chair, eating a light diet. Two daughters are at the bedside. REVIEW OF SYSTEMS: Done for constitutional, cardiovascular, GI, pulmonary; relevant findings as above. CURRENT MEDICATIONS: Reviewed. They include Dilaudid for pain and Xarelto. PHYSICAL EXAMINATION: Temperature 97, pulse 103, respiration 18, blood pressure 99/58, pulse ox 95% on 2 L. GENERAL APPEARANCE: Sitting up in a chair, more perky. EYES: Pupils equal. Conjunctivae pale. HEENT: External appearance of nose and ears normal. Oral cavity normal. NECK: JVD unable to assess. Mass not palpable. RESPIRATORY: Effort increased. LUNGS: Decreased breath sounds on the right side. CHEST WALL: Right-sided chest tube in place. CARDIOVASCULAR: First and second sounds normal. No edema. ABDOMEN: Soft, non-tender. Liver and spleen not palpable. PSYCHIATRY: Alert and oriented x3. Mood and affect normal. INVESTIGATIONS: No blood work from today. CT scan of the chest shows a right-sided pleural effusion, lung mass and lung nodules. ASSESSMENT: 1. Large right hydropneumothorax, predominant pleural effusion, malignant, status post right chest tube placement. Still a large amount of fluid is present. 2. Stage IV metastatic adenocarcinoma of the lung. 3. Paroxysmal atrial fibrillation, currently in sinus rhythm on Xarelto. 4. Chronic obstructive pulmonary disease in an ex-smoker. 5. Gastroesophageal reflux disease. 6. Hyperlipidemia. 7. Essential hypertension. 8. Primary osteoarthritis. 9. Macular degeneration. 10.Severe aortic stenosis with a value area of 0.8 cm2, non-rheumatic. 11.Trigeminal neuralgia. 12.Coronary artery disease, non-occlusive. 13.Mild protein-calorie malnutrition from decreased oral intake. PLAN: Prognosis remains guarded. Continue medication and treatment plan. Follow with Pulmonary and Oncology. Care was discussed with the patient and family at the bedside. MMODL / IJN: [id number] /
[2018-09-02] MEDS: PRAVASTATIN SODIUM 80 MG TAB PO SCH (21:33)
[2018-09-03] MEDS: HYDROmorphone 1 MG/ML 1 ML SYRINGE IVP PRN ×4 (03:21→21:44)
[2018-09-03] MEDS: PANTOPRAZOLE 40 MG TABLET PO SCH (06:35)
--- NOTE | 2018-09-03 07:23 | XR ---
EXAMINATION TYPE: XR chest 1V DATE OF EXAM: 09/03/2018 HISTORY: chest tube. REFERENCE: Previous study dated 09/02/2018. FINDINGS: The right pleural drain remains in place. No pneumothorax is identified. There is increased opacity of the right lung. This is likely a combination of pleural fluid and atelectasis. Recent CT scan demonstrated a right pleural effusion as well as a mass in the right lung. The left lung appears clear. Heart size is obscured. IMPRESSION: 1. THE PATIENT'S PNEUMOTHORAX IDENTIFIED ON CT IS NOT SEEN ON THIS STUDY. 2. INCREASED OPACITY TO THE RIGHT LOWER LUNG DEMONSTRATED PREVIOUSLY TO BE SECONDARY TO A COMBINATION OF PLEURAL FLUID AND A RIGHT LUNG MASS.
[2018-09-03] MEDS: IPRATROPIUM-ALBUTEROL 3 ML NEB INHALATION SCH ×3 (08:38→19:53)
[2018-09-03] MEDS: CYANOCOBALAMIN 500 MCG TAB PO SCH (09:59)
[2018-09-03] MEDS: VIT A,C & E-LUTEIN-MINERALS 1 EACH TAB PO SCH ×2 (09:59→21:43)
[2018-09-03] MEDS: METOPROLOL TARTRATE 25 MG TAB PO SCH (09:59)
[2018-09-03] MEDS: MAGNESIUM OXIDE 400 MG TAB PO SCH (09:59)
[2018-09-03] MEDS: DOCUSATE 100 MG CAP PO SCH (09:59)
[2018-09-03] MEDS: CLOTRIMAZOLE TROCHE 10 MG TROCHE MUCOUS MEM SCH ×5 (09:59→21:32)
[2018-09-03] MEDS: CALCIUM CARBONATE 500 MG CHEWABLE PO SCH (09:59)
[2018-09-03] MEDS: FUROSEMIDE 20 MG TAB PO SCH (09:59)
[2018-09-03] MEDS: NYSTATIN 100,000 UNIT/ML SUSP 500,000 UNIT/5 ML CUP PO SCH ×4 (10:00→21:44)
[2018-09-03] MEDS: POTASSIUM CHLORIDE ER 10 MEQ TAB.ER.PRT PO SCH ×2 (10:00→21:43)
[2018-09-03 10:32] LABS: Basophils % (A) 0 %; Eosinophils # (A) 0.2 k/uL (0-0.7); Eosinophils % (A) 3 %; HCT 39.7 % (34.0-46.0); HGB 12.6 gm/dL (11.4-16.0); Lymphocytes # (A) 1.1 k/uL (1.0-4.8); Lymphocytes % (A) 14 %; MCH 30.4 pg (25.0-35.0); MCHC 31.7 g/dL (31.0-37.0); Mean Platelet Volume 7.1; Monocytes # (A) 0.8 k/uL (0-1.0); Monocytes % (A) 10 %; Neutrophils # (A) 5.8 k/uL (1.3-7.7); Neutrophils % (A) 71 %; Platelet Count 281 k/uL (150-450); RBC 4.13 m/uL (3.80-5.40); RDW 13.2 % (11.5-15.5); WBC 8.1 k/uL (3.8-10.6)
[2018-09-03 10:40] LABS: Albumin 2.7 g/dL (3.5-5.0); Carbon Dioxide 37 mmol/L (22-30); Glucose 102 mg/dL (74-99); Potassium 4.4 mmol/L (3.5-5.1); Sodium 136 mmol/L (137-145); Total Protein 5.3 g/dL (6.3-8.2)
[2018-09-03 10:41] LABS: ALT 74 U/L (9-52); AST 72 U/L (14-36); Alkaline Phosphatase 111 U/L (38-126); Blood Urea Nitrogen 14 mg/dL (7-17); Calcium 8.7 mg/dL (8.4-10.2); Total Bilirubin 0.2 mg/dL (0.2-1.3)
[2018-09-03 11:13] LABS: Chloride 96 mmol/L (98-107)
[2018-09-03 11:14] LABS: Anion Gap 3 mmol/L
[2018-09-03] MEDS: LISINOPRIL 5 MG TAB PO SCH (11:39)
--- NOTE | 2018-09-03 14:40 | P.PN ---
Subjective Progress Note Date: 09/03/18 Principal diagnosis: Malignant pleural effusion sitting up in chair, eating lunch, family at bedside. Pain medications helping Objective - Vital Signs Vital signs: Vital Signs Temp 97.6 F 09/03/18 11:44 Pulse 107 H 09/03/18 11:44 Resp 18 09/03/18 11:44 BP 116/75 09/03/18 11:44 Pulse Ox 95 09/03/18 11:44 Intake & Output 09/02/18 09/03/18 09/03/18 18:59 06:59 18:59 Intake Total 840 120 Output Total 40 700 190 Balance 800 -700 -70 Weight 65.5 kg Intake: Oral 840 120 Output: Chest Tube Drainage 40 350 190 Chest Tube Right Mid- 40 350 190 Axillary Chest Urine 350 Other: Voiding Method Bedpan # Voids 1 - Exam Constitutional General appearance: cooperative, mild distress, thin - EENT Eyes: EOMI, PERRLA, dentition normal ENT: hard of hearing, NA/AT, other, thrush - Neck no adenopathy cervical Neck: normal ROM - Respiratory Chest tube insertion Respiratory: bilateral: diminished, wheezing - Cardiovascular Rhythm: irregularly irregular - Gastrointestinal non tender General gastrointestinal: normal bowel sounds, soft - Integumentary Integumentary: pale - Neurologic No focal defects Neurologic: CNII-XII intact - Musculoskeletal Musculoskeletal: generalized weakness, strength equal bilaterally - Psychiatric Psychiatric: A&O x's 3, appropriate affect, intact judgment & insight - Labs CBC & Chem 7: 09/03/18 10:00 09/03/18 10:00 Labs: Abnormal Lab Results - Last 24 Hours (Table) 09/03/18 Range/Units 10:00 Sodium 136 L (137-145) mmol/L Chloride 96 L (98-107) mmol/L Carbon Dioxide 37 H (22-30) mmol/L Glucose 102 H (74-99) mg/dL AST 72 H (14-36) U/L ALT 74 H (9-52) U/L Total Protein 5.3 L (6.3-8.2) g/dL Albumin 2.7 L (3.5-5.0) g/dL Assessment and Plan (1) Dysphagia Narrative/Plan: - GI is following - Speech pathology is following as outpatient Current Visit: Yes Status: Acute Code(s): R13.10 - DYSPHAGIA, UNSPECIFIED SNOMED Code(s): 48849632 (2) Hydropneumothorax Current Visit: Yes Status: Acute Code(s): J94.8 - OTHER SPECIFIED PLEURAL CONDITIONS SNOMED Code(s): 99627728 (3) Lung cancer Narrative/Plan: - Status post treatment one of opdivo, on hold until acute situation resolves Current Visit: Yes Status: Acute Code(s): C34.90 - MALIGNANT NEOPLASM OF UNSP PART OF UNSP BRONCHUS OR LUNG SNOMED Code(s): 236772309 (4) Pain, neoplasm-related Narrative/Plan: - Fentanyl increased from 25mcg to 50mcg and prn breakthrough - COntinue with bowel regimen Current Visit: Yes Status: Acute Code(s): G89.3 - NEOPLASM RELATED PAIN ( ACUTE) (CHRONIC) SNOMED Code(s): 254158345 Plan: - Hold Opdivo until acute situation improved/resolved - GI and Pulmonary Following - Pulm Planning bronch Wednesday. -
--- NOTE | 2018-09-03 15:30 | P.PN ---
Subjective Progress Note Date: 09/03/18 This is an 83 -year-old female patient who has currently metastatic adenocarcinoma of the lung. The patient is known to have COPD and previous history of non-small cell lung cancer. The patient's original diagnosis of lung cancer was established in 2011 through an anterior mediastinal endoscopy. Following that the patient underwent chemoradiation therapy. She responded very well and she remained in remission for many years. As for COPD, the patient is an FEV1 of 50% of predicted and she has also underlying comorbidities including CHF, chronic atrial fibrillation, aortic valve stenosis and the patient has moderate to severe ASO with a valve area of 0.8 cm, coronary artery disease with nonocclusive disease based on the previous cardiac catheterization,, and previous history of breast cancer, and the patient is post mastectomy. The patient upon follow-up was found to have a right upper lobe lesion that was initially measuring 1.8 x 1.6 cm in size in addition to some smaller pretracheal lymph nodes measuring 9 mm. Based on this, the patient was sent for a fine-needle aspiration that did not yield any diagnosis of malignancy. Upon subsequent follow-up, the patient underwent a follow-up CAT scan imaging that showed enlargement of the right upper lobe mass and the PET scan that was done on 07/30/2018 showed increasing mass in the right middle lobe area measuring 2.8 cm in size with a maximum SUV of 8 addition to smaller 7 mm precarinal lymph nodes. There are also numerous pulmonary nodules in the left mid and the left lower lung area measuring up to 8 mm in size and few scattered pulmonary nodules on the right largest being about 2 mm in size. Patient also developed a right-sided pleural effusion. I performed a diagnostic thoracentesis on this patient. A total of 900 mL of pleural fluid was aspirated. The fluid returned materials inspector to be malignant and the patient was referred to Dr. Corcoran for treatment and the patient is currently on immunotherapy. The patient came into the emergency department today because of worsening shortness of breath. An x-ray was done and it showed a estimated 30% right- sided hydropneumothorax with a large fluids component attributing the mediastinum and there was some limited shift to the right. Based on this, the patient was seen in emergency department and a chest tube was inserted. I inserted a chest tube and a total of 1500 of pleural fluid was aspirated immediately. There was a positive air leak. Subsequent chest x-ray showed interval improvement of a right-sided hydropneumothorax. There was still some stable pneumothorax in the right apex still seen. Tube was in a good location. The procedure without without any complications. The patient will be admitted to the hospital for now. Her underlying hemodynamics is stable for now. She is expressing some pain along the right chest area for which she is getting Dilaudid 0.5 mg every 6-8 hours. At that the patient was also having difficulties with swallowing. Previous EGD evaluation was negative. She underwent a recent modified barium swallow that showed silent penetration with coating of the vocal cords. After couple of swallows, there was a concern of aspiration based on that the patient had the procedure terminated. On 09/01/2018 patient seen in follow-up. Breathing easier today, less coughing. Right-sided chest tube is in place, no air leak noted, patient had a total of 1850 ML of serosanguineous pleural fluid since the insertion of the chest tube. Currently on 2 L per nasal cannula, with pulse ox of 96%, patient is afebrile, slightly tachycardic, heart rate of 102 BPM. States she is breathing much easier today. Today's chest x-ray has been reviewed by Dr. Mitchell, and shows improvement in the appearance of right-sided pneumothorax, basilar atelectasis. Patient is complaining of difficulty swallowing, and she underwent a recent modified barium swallow was not completed in view of silent penetration. We will aske GI service and speech therapy to reevaluate patient in regards to dysphagia. Patient is seen today 09/02/2018 in follow-up on the selective care unit. She is awake and alert in no acute distress. She is currently sitting up in a chair at the bedside. She does have a loose productive cough of thick sputum. Right-sided chest tube remains in place. We'll serosanguineous drainage. Positive leak with cough. X-ray continues to show right basilar pleural effusion with underlying atelectasis/infiltrate. No sizable pneumothorax. He is continued on DuoNeb inhalations. She is working well with the incentive spirometer. She is currently afebrile. Hemodynamically stable. Maintaining good O2 saturations in the 90s on 2 L/m per nasal cannula. Speech evaluation regarding her dysphagia revealed evidence of presbyesophagus. He has been seen and evaluated by GI services and she is encouraged to avoid meats and breads. A PEG tube was offered but the patient is declining at this time. No plans for EGD. On 09/03/2018, Alicia is doing better and the patient is less short of breath compared to yesterday. The chest x-ray from today shows no evidence of any pneumothorax and a chest tube remains in a good location. Nevertheless, there is still persistent opacification of the right lung base. The chest tube still in place and the total amount of output in the chest tube has been about 3 9 0 mL for yesterday. No evidence of any air leak. Based on the presence of persistent opacification of the right lung base him on a CAT scan of the chest was obtained that showed a small apical anterior right sided pneumothorax. There is a small right basilar pleural effusion. The right lower lobe is still atelectatic and there is a cutoff sign at the level of distal bronchus intermedius. Also, the right middle lobe mass was again seen. The exact cause for the right lower lobe atelectasis is not clear. I think this is to be further investigated by a bronchoscopy. The patient is not producing significant amount of sputum. Her swallowing was evaluated. A modified barium swallow was done which she passed without any evidence of aspiration. No significant chest pain. Chest tubes remains in a good location. Objective - Vital Signs Vital signs: Vital Signs Temp 97.6 F 09/03/18 11:44 Pulse 107 H 09/03/18 11:44 Resp 18 09/03/18 11:44 BP 116/75 09/03/18 11:44 Pulse Ox 95 09/03/18 11:44 Intake & Output 09/02/18 09/03/18 09/03/18 18:59 06:59 18:59 Intake Total 840 120 Output Total 40 700 190 Balance 800 -700 -70 Weight 65.5 kg Intake: Oral 840 120 Output: Chest Tube Drainage 40 350 190 Chest Tube Right Mid- 40 350 190 Axillary Chest Urine 350 Other: Voiding Method Bedpan # Voids 1 - Exam General Appearance no diaphoresis, no respiratory distress, speech not interrupted by breaths, no dyspnea, no pallor, not cachectic, well nourished, appears well HEENT no pursed lip breathing, no jugular venous distention, no mucous membrane cyanosis, no perioral cyanosis, mallampati classification: class 1 Chest no barrel chest, no retractions, no sternocleidomastoid muscle contractions, no supraclavicular retractions, no intercostal retractions, no prolonged expiratory wheezing, no decreased air movement, no rhonchi, no hyperinflation, decreased air movement (diminished breath sounds in the right lung basealong with dullness to percussion his relationship with pleural effusion), the patient is postop mastectomy. Lung sounds are diminished over right base, overall diminished breath sounds bilaterally., More so on the right base. Right-sided chest tube is in place, with a total of 1850 of serosanguineous pleural fluid out since insertion of chest tube on 09/01/2018, oh air leak noted, the chest tube is connected to wall suction. Heart no right ventricular heave, no distant heart sounds, no s3 gallop, (normal ) jugular vein: jugular venous distention: by 0cm, Murmurs: Unspecified Location : Systolic: Grade 3 / IV (systolic ejection murmur G3/6) GI bowel sounds: hyperactive (borborygmi), bowel sounds: diminished or absent Extremities no cyanosis, no clubbing, no edema Neurologic no decreased mental status, no somnolence, no confusion Examination of the skin revealed no evidence of significant rashes, suspicious appearing nevi or other concerning lesions. - Labs CBC & Chem 7: 09/03/18 10:00 09/03/18 10:00 Labs: Abnormal Lab Results - Last 24 Hours (Table) 09/03/18 Range/Units 10:00 Sodium 136 L (137-145) mmol/L Chloride 96 L (98-107) mmol/L Carbon Dioxide 37 H (22-30) mmol/L Glucose 102 H (74-99) mg/dL AST 72 H (14-36) U/L ALT 74 H (9-52) U/L Total Protein 5.3 L (6.3-8.2) g/dL Albumin 2.7 L (3.5-5.0) g/dL Assessment and Plan Plan: Assessment 1 right-sided hydropneumothorax, post chest tube insertion and removal of approximately 2 L of pleural fluid from the right hemithorax. Output for the past 24 hours his been in the order of 390 mL. No evidence of any air leak. Nevertheless, the CAT scan of the chest that was done showed persistent atelectasis of the right middle lobe/right lower lobe area. The pleural effusion on the right is small and there is a small right apical pneumothorax present. Chest tube remains in a good location. There is also airway being plugged an obstructed at the level of the distal bronchus intermedius. The exact cause is not clear. Rule out endobronchial tumor. Rule out endobronchial mucus. On subsequent chest x-ray, there is still persistent opacification of the right lower lobe with volume loss which is probably related to the right middle lobe/right lower lobe atelectasis. 2 adenocarcinoma of the lung, stage IV. The patient is currently on immunotherapy and she received her first session of immunotherapy through Dr. Velez today. 3 COPD with a baseline FEV1 of 50% of predicted 4 malignant right-sided pleural effusion 5 aortic valve stenosis, nonsurgical case and the patient has a valve area of 0.8 cm 6 paroxysmal atrial fibrillation currently on anticoagulation with Xarelto 7 worsening shortness of breath secondary to above. The patient's increased dyspnea with essentially due to development of a right-sided pleural effusion and pneumothorax/hydropneumothorax 8 nonocclusive coronary artery disease 9 hypothyroidism 10, aortic stenosis 11 hyperlipidemia 12 trigeminal neuralgia 13 chronic ALLERGIC rhinitis 14 remote history of breast cancer with a previous right mastectomy Plan Keep the chest tube in place. Incentive spirometer. Daily chest x-rays. Will need to proceed with a bronchoscopy on this patient to visualize the right lower lobe right middle lobe and bronchus intermedius area. This will be important to assess the pulmonary status and see if we can achieve any further expression of the lower lobe segments on the right. We'll continue to follow. Long-term prognosis poor specially with the presence of stage IV adenocarcinoma of the lung. The patient is already started on immunotherapy.
[2018-09-03] MEDS: RIVAROXABAN 20 MG TAB PO SCH (17:14)
[2018-09-03] MEDS: PRAVASTATIN SODIUM 80 MG TAB PO SCH (21:43)
--- NOTE | 2018-09-03 23:41 | PN ---
PROGRESS NOTE DATE OF SERVICE: September 03, 2018. PRESENTING COMPLAINT: Short of breath. INTERVAL HISTORY: This is a patient with large right malignant pleural effusion with a chest tube in place. X-ray showing a possible right middle lobe collapse. The patient may need bronchoscopy. The patient is tolerating some diet. Has got a cough. REVIEW OF SYSTEMS: Done for constitutional, cardiovascular, GI, pulmonary; relevant findings as above. CURRENT MEDICATIONS: Reviewed. PHYSICAL EXAMINATION: VITAL SIGNS: Temperature 97.6, pulse 107, respiratory 18, blood pressure 116/75, pulse ox 95 percent on 2 L. GENERAL APPEARANCE: Sitting up in a chair, awake. EYES: Pupils equal. Conjunctivae pale. HEENT: External appearance of nose and ears normal. Oral cavity normal. NECK: JVD unable to assess. Mass not palpable. RESPIRATORY: Effort increased. LUNGS: Decreased breath sounds. CARDIOVASCULAR: 1st and 2nd sounds normal. No edema. ABDOMEN: Soft, nontender. LUNGS: Decreased breath sounds on the right side. Chest wall right-sided chest tube. PSYCH: AO x3. Mood and affect normal. INVESTIGATIONS: White count 8.1, hemoglobin 12.6, potassium 4.4. Chest x-ray continues to show significant opacity on the right side. ASSESSMENT: 1. Large right hydropneumothorax predominant pleural effusion, malignant, status post right-sided chest tube. Also possibility of right middle or lower lobe collapse. 2. Stage IV metastatic adenocarcinoma of the lung on immunotherapy/Opdivo. 3. Paroxysmal atrial fibrillation currently in sinus rhythm on Xarelto. 4. Chronic obstructive pulmonary disease in an ex-smoker. 5. Gastroesophageal reflux disease. 6. Hyperlipidemia. 7. Essential hypertension. 8. Primary osteoarthritis. 9. Macular degeneration. 10.Severe aortic stenosis with valve area of 0.8 cm2 nonrheumatic. 11.Trigeminal neuralgia. 12.Coronary artery disease, nonocclusive. 13.Mild protein-calorie malnutrition decreased oral intake. PLAN: Care was discussed with the patient. Dr. Mitchell is planning bronchoscopy. Prognosis not good. MMODL / IJN: [id number] /
[2018-09-04] MEDS: HYDROmorphone 1 MG/ML 1 ML SYRINGE IVP PRN ×5 (01:03→23:01)
[2018-09-04] MEDS: PROMETHAZINE 25 MG TAB PO PRN ×2 (01:04→20:30)
[2018-09-04] MEDS: PANTOPRAZOLE 40 MG TABLET PO SCH (06:31)
--- NOTE | 2018-09-04 06:58 | XR ---
EXAMINATION TYPE: XR chest 1V portable DATE OF EXAM: 09/04/2018 HISTORY: chest tube. REFERENCE: Previous study dated 09/03/2018. FINDINGS: The right pleural drain remains in place. No sizable pneumothorax is seen. There is improvi ng right basilar airspace disease. There is a right-sided effusion. Heart size is obscured. IMPRESSION: IMPROVED AERATION RIGHT LUNG BASE.
[2018-09-04] MEDS: IPRATROPIUM-ALBUTEROL 3 ML NEB INHALATION SCH ×3 (08:46→20:14)
[2018-09-04] MEDS: CALCIUM CARBONATE 500 MG CHEWABLE PO SCH (10:37)
[2018-09-04] MEDS: CLOTRIMAZOLE TROCHE 10 MG TROCHE MUCOUS MEM SCH ×4 (10:37→19:49)
[2018-09-04] MEDS: CYANOCOBALAMIN 500 MCG TAB PO SCH (10:38)
[2018-09-04] MEDS: FUROSEMIDE 20 MG TAB PO SCH (10:38)
[2018-09-04] MEDS: LISINOPRIL 5 MG TAB PO SCH (10:38)
[2018-09-04] MEDS: DOCUSATE 100 MG CAP PO SCH (10:38)
[2018-09-04] MEDS: MAGNESIUM OXIDE 400 MG TAB PO SCH (10:38)
[2018-09-04] MEDS: METOPROLOL TARTRATE 25 MG TAB PO SCH (10:40)
[2018-09-04] MEDS: NYSTATIN 100,000 UNIT/ML SUSP 500,000 UNIT/5 ML CUP PO SCH ×4 (10:41→23:04)
[2018-09-04] MEDS: POTASSIUM CHLORIDE ER 10 MEQ TAB.ER.PRT PO SCH ×2 (10:41→19:49)
[2018-09-04] MEDS: VIT A,C & E-LUTEIN-MINERALS 1 EACH TAB PO SCH ×2 (14:32→20:30)
[2018-09-04] MEDS: ONDANSETRON 4 MG/2 ML VIAL IVP PRN ×2 (14:49→19:49)
--- NOTE | 2018-09-04 15:02 | P.PN ---
Subjective Progress Note Date: 09/04/18 This is an 83 -year-old female patient who has currently metastatic adenocarcinoma of the lung. The patient is known to have COPD and previous history of non-small cell lung cancer. The patient's original diagnosis of lung cancer was established in 2011 through an anterior mediastinal endoscopy. Following that the patient underwent chemoradiation therapy. She responded very well and she remained in remission for many years. As for COPD, the patient is an FEV1 of 50% of predicted and she has also underlying comorbidities including CHF, chronic atrial fibrillation, aortic valve stenosis and the patient has moderate to severe ASO with a valve area of 0.8 cm, coronary artery disease with nonocclusive disease based on the previous cardiac catheterization,, and previous history of breast cancer, and the patient is post mastectomy. The patient upon follow-up was found to have a right upper lobe lesion that was initially measuring 1.8 x 1.6 cm in size in addition to some smaller pretracheal lymph nodes measuring 9 mm. Based on this, the patient was sent for a fine-needle aspiration that did not yield any diagnosis of malignancy. Upon subsequent follow-up, the patient underwent a follow-up CAT scan imaging that showed enlargement of the right upper lobe mass and the PET scan that was done on 07/30/2018 showed increasing mass in the right middle lobe area measuring 2.8 cm in size with a maximum SUV of 8 addition to smaller 7 mm precarinal lymph nodes. There are also numerous pulmonary nodules in the left mid and the left lower lung area measuring up to 8 mm in size and few scattered pulmonary nodules on the right largest being about 2 mm in size. Patient also developed a right-sided pleural effusion. I performed a diagnostic thoracentesis on this patient. A total of 900 mL of pleural fluid was aspirated. 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 Corcoran for treatment and the patient is currently on immunotherapy. The patient came into the emergency department today because of worsening shortness of breath. An x-ray was done and it showed a estimated 30% right- sided hydropneumothorax with a large fluids component attributing the mediastinum and there was some limited shift to the right. Based on this, the patient was seen in emergency department and a chest tube was inserted. I inserted a chest tube and a total of 1500 of pleural fluid was aspirated immediately. There was a positive air leak. Subsequent chest x-ray showed interval improvement of a right-sided hydropneumothorax. There was still some stable pneumothorax in the right apex still seen. Tube was in a good location. The procedure without without any complications. The patient will be admitted to the hospital for now. Her underlying hemodynamics is stable for now. She is expressing some pain along the right chest area for which she is getting Dilaudid 0.5 mg every 6-8 hours. At that the patient was also having difficulties with swallowing. Previous EGD evaluation was negative. She underwent a recent modified barium swallow that showed silent penetration with coating of the vocal cords. After couple of swallows, there was a concern of aspiration based on that the patient had the procedure terminated. On 09/01/2018 patient seen in follow-up. Breathing easier today, less coughing. Right-sided chest tube is in place, no air leak noted, patient had a total of 1850 ML of serosanguineous pleural fluid since the insertion of the chest tube. Currently on 2 L per nasal cannula, with pulse ox of 96%, patient is afebrile, slightly tachycardic, heart rate of 102 BPM. States she is breathing much easier today. Today's chest x-ray has been reviewed by Dr. Mitchell, and shows improvement in the appearance of right-sided pneumothorax, basilar atelectasis. Patient is complaining of difficulty swallowing, and she underwent a recent modified barium swallow was not completed in view of silent penetration. We will aske GI service and speech therapy to reevaluate patient in regards to dysphagia. Patient is seen today 09/02/2018 in follow-up on the selective care unit. She is awake and alert in no acute distress. She is currently sitting up in a chair at the bedside. She does have a loose productive cough of thick sputum. Right-sided chest tube remains in place. We'll serosanguineous drainage. Positive leak with cough. X-ray continues to show right basilar pleural effusion with underlying atelectasis/infiltrate. No sizable pneumothorax. He is continued on DuoNeb inhalations. She is working well with the incentive spirometer. She is currently afebrile. Hemodynamically stable. Maintaining good O2 saturations in the 90s on 2 L/m per nasal cannula. Speech evaluation regarding her dysphagia revealed evidence of presbyesophagus. He has been seen and evaluated by GI services and she is encouraged to avoid meats and breads. A PEG tube was offered but the patient is declining at this time. No plans for EGD. On 09/03/2018, Alicia is doing better and the patient is less short of breath compared to yesterday. The chest x-ray from today shows no evidence of any pneumothorax and a chest tube remains in a good location. Nevertheless, there is still persistent opacification of the right lung base. The chest tube still in place and the total amount of output in the chest tube has been about 3 9 0 mL for yesterday. No evidence of any air leak. Based on the presence of persistent opacification of the right lung base him on a CAT scan of the chest was obtained that showed a small apical anterior right sided pneumothorax. There is a small right basilar pleural effusion. The right lower lobe is still atelectatic and there is a cutoff sign at the level of distal bronchus intermedius. Also, the right middle lobe mass was again seen. The exact cause for the right lower lobe atelectasis is not clear. I think this is to be further investigated by a bronchoscopy. The patient is not producing significant amount of sputum. Her swallowing was evaluated. A modified barium swallow was done which she passed without any evidence of aspiration. No significant chest pain. Chest tubes remains in a good location. On today's evaluation of 09/04/2018, the patient is looking well. The patient is no specific complaints. She is hemodynamically stable. Right-sided chest tube is still in place. The follow-up chest tubes removed from this morning showed that the right sided chest tube still in place. There is no evidence of any pneumothorax. There is improvement in aeration in the right lung base and the right basilar airspace disease. The patient is coughing up some liquid sputum which is noncolored. He is using incentive spirometer. The chest tube output for yesterday was in order of 280 mL and there is no evidence of any air leak and the pleural VAC. Patient is tolerating diet. No significant pain across the right chest area. No nausea. No vomiting. No diarrhea. No abdominal pain. Pain is under good control. She had been complaining of dysphagia and the workup was been essentially negative. Objective - Vital Signs Vital signs: Vital Signs Temp 97.8 F 09/04/18 03:39 Pulse 111 H 09/04/18 12:47 Resp 18 09/04/18 03:39 BP 95/64 09/04/18 03:39 Pulse Ox 96 09/04/18 08:48 Intake & Output 09/03/18 09/04/18 09/04/18 18:59 06:59 18:59 Intake Total 240 240 Output Total 190 790 Balance 50 -790 240 Weight 63.6 kg Intake: Oral 240 240 Output: Chest Tube Drainage 190 90 Chest Tube Right Mid- 190 90 Axillary Chest Urine 700 Other: Voiding Method Bedpan Bedpan # Voids 1 2 - Exam General Appearance no diaphoresis, no respiratory distress, speech not interrupted by breaths, no dyspnea, no pallor, not cachectic, well nourished, appears well HEENT no pursed lip breathing, no jugular venous distention, no mucous membrane cyanosis, no perioral cyanosis, mallampati classification: class 1 Chest no barrel chest, no retractions, no sternocleidomastoid muscle contractions, no supraclavicular retractions, no intercostal retractions, no prolonged expiratory wheezing, no decreased air movement, no rhonchi, no hyperinflation, decreased air movement (diminished breath sounds in the right lung basealong with dullness to percussion his relationship with pleural effusion), the patient is postop mastectomy. Lung sounds are diminished over right base, overall diminished breath sounds bilaterally., More so on the right base. Right-sided chest tube is in place, with a total of 1850 of serosanguineous pleural fluid out since insertion of chest tube on 09/01/2018, oh air leak noted, the chest tube is connected to wall suction. Heart no right ventricular heave, no distant heart sounds, no s3 gallop, (normal ) jugular vein: jugular venous distention: by 0cm, Murmurs: Unspecified Location : Systolic: Grade 3 / IV (systolic ejection murmur G3/6) GI bowel sounds: hyperactive (borborygmi), bowel sounds: diminished or absent Extremities no cyanosis, no clubbing, no edema Neurologic no decreased mental status, no somnolence, no confusion Examination of the skin revealed no evidence of significant rashes, suspicious appearing nevi or other concerning lesions. - Labs CBC & Chem 7: 09/03/18 10:00 10/27/18 10:00 Assessment and Plan Plan: Assessment 1 right-sided hydropneumothorax, post chest tube insertion and removal of approximately 2 L of pleural fluid from the right hemithorax. Over the past 24 hours, the output from the right-sided chest tube has diminished. The subsequent CAT scan of the chest showed right lower lobe consolidation/ atelectasis and there was a cut off sign at the level of the bronchus intermedius. I was planning to do a bronchoscopy to evaluate the patient's bronchus intermedius and see if there is any endobronchial mucus plugging airway and preventing full expansion of the right lung. Nevertheless, on today' s chest x-ray, there is improvement in aeration of the right lung base and an very much happy with the response. She is not fully expanded however. She may need a bronchoscopy at a later stage of the findings remain unchanged. Meanwhile, keep the chest tube in place. Once the lung is fully up, the patient may need and benefit from pleurodesis. For now, she will continue using incentive spirometer. 2 adenocarcinoma of the lung, stage IV. The patient is currently on immunotherapy and she received her first session of immunotherapy through Dr. Velez today. 3 COPD with a baseline FEV1 of 50% of predicted 4 malignant right-sided pleural effusion 5 aortic valve stenosis, nonsurgical case and the patient has a valve area of 0.8 cm 6 paroxysmal atrial fibrillation currently on anticoagulation with Xarelto 7 worsening shortness of breath secondary to above. The patient's increased dyspnea with essentially due to development of a right-sided pleural effusion and pneumothorax/hydropneumothorax 8 nonocclusive coronary artery disease 9 hypothyroidism 10, aortic stenosis 11 hyperlipidemia 12 trigeminal neuralgia 13 chronic ALLERGIC rhinitis 14 remote history of breast cancer with a previous right mastectomy Plan Keep the chest tube in place. Incentive spirometer. Daily chest x-rays. There is improvement in aeration of the right lung base. She may still need a bronchoscopy that it is stage to inspect the right mainstem bronchus and the distal bronchus intermedius and the patient is agreeable to this approach. Continue using incentive spirometer. Keep thevOpdivo on hold for now. We'll continue to follow. Outpatient medications have been ordered resume. The patient is also on long-term and coagulation regarding approximately atrial fibrillation and she is on Xarelto. She is also on oral Lasix.
--- NOTE | 2018-09-04 17:12 | PN ---
PROGRESS NOTE DATE OF SERVICE: 09/04/2018 PRESENTING COMPLAINT: Short of breath. INTERVAL HISTORY: This patient has a large right sided pleural effusion with a chest tube in place. Also had a pneumothorax. X-ray from today is looking a bit better. The patient is breathing a bit better. Still constipated, bringing up some clear sputum. The patient has got a cough. REVIEW OF SYSTEMS: Done for constitutional, cardiovascular, GI, pulmonary; relevant findings as above. CURRENT MEDICATIONS: Reviewed. PHYSICAL EXAMINATION: VITAL SIGNS: Temperature 97.8, pulse 107, respiratory 18, blood pressure 95/64, pulse ox 93 percent on room air. GENERAL APPEARANCE: Lying in bed, more restful. EYES: Pupils equal. Conjunctivae pale. HEENT: External appearance of nose and ears normal. Oral cavity normal. NECK: JVD unable to assess. Mass not palpable. RESPIRATORY: Effort increased. LUNGS: Decreased breath sounds in the right side. CARDIOVASCULAR: 1st and 2nd sounds normal. No edema. ABDOMEN: Soft, nontender. Liver and spleen not palpable. Chest wall: Right-sided chest tube. PSYCH: AO x3. Mood and affect normal. INVESTIGATION: Chest x-ray film, personally reviewed by me shows improved aeration on the right side, decreased fluid. No blood work from today. ASSESSMENT: 1. Large right hydropneumothorax predominant pleural effusion, malignant, status post right-sided chest tube. It is possible, patient may still have a right lower lobe collapse. Fluid has drained quite a bit. 2. Stage IV metastatic adenocarcinoma of the lung on immunotherapy OPDIV0. 3. Paroxysmal atrial fibrillation currently in sinus rhythm on Xarelto. 4. Chronic obstructive pulmonary disease in an ex-smoker. 5. Gastroesophageal reflux disease. 6. Hyperlipidemia. 7. Essential hypertension. 8. Primary osteoarthritis. 9. Macular degeneration. 10.Severe aortic stenosis with valve area 0.8 cm2 nonrheumatic. 11.Trigeminal neuralgia. 12.Coronary artery disease, nonocclusive. 13.Mild protein-calorie malnutrition decreased oral intake. 14.Narcotic induced constipation. PLAN: I talked to the pharmacy. We do not have the newer immune receptor blocking laxatives. We will put the patient on Metamucil twice a day and also add lactulose. I did discuss with Dr. Mitchell. The patient will need bronchoscopy down the road and talc pleurodesis. Overall prognosis still guarded, given underlying condition. MMODL / IJN: [id number] /
[2018-09-04] MEDS: RIVAROXABAN 20 MG TAB PO SCH (17:58)
[2018-09-04] MEDS: PSYLLIUM HUSK 100% 6 GM PACKET PO SCH (19:48)
[2018-09-04] MEDS: PRAVASTATIN SODIUM 80 MG TAB PO SCH (19:48)
[2018-09-04] MEDS: MELATONIN 3 MG TABLET PO PRN (19:49)
[2018-09-04] MEDS: CYCLOBENZAPRINE 5 MG TAB PO PRN (23:02)
[2018-09-05] MEDS: CYCLOBENZAPRINE 5 MG TAB PO PRN ×2 (08:24→20:19)
[2018-09-05] MEDS: METOPROLOL TARTRATE 25 MG TAB PO SCH (08:25)
[2018-09-05] MEDS: PROMETHAZINE 25 MG TAB PO PRN (08:25)
[2018-09-05] MEDS: FUROSEMIDE 20 MG TAB PO SCH (08:25)
[2018-09-05] MEDS: LISINOPRIL 5 MG TAB PO SCH (08:25)
[2018-09-05] MEDS: CLOTRIMAZOLE TROCHE 10 MG TROCHE MUCOUS MEM SCH ×4 (08:26→20:20)
[2018-09-05] MEDS: NYSTATIN 100,000 UNIT/ML SUSP 500,000 UNIT/5 ML CUP PO SCH ×4 (08:31→20:19)
[2018-09-05] MEDS: IPRATROPIUM-ALBUTEROL 3 ML NEB INHALATION SCH ×3 (08:34→20:46)
--- NOTE | 2018-09-05 09:39 | XR ---
EXAMINATION TYPE: XR chest 1V portable DATE OF EXAM: 09/05/2018 COMPARISON: Prior chest x-ray dated 09/04/2018 HISTORY: Chest tube TECHNIQUE: Single frontal view of the chest is obtained. FINDINGS: Right-sided chest tube remains in place. Heart size is likely stable. Elevation of right d iaphragm again noted. Some nodularity noted at the left lung base. The interstitium is present, postop changes noted in the left chest. No evident pneumothorax. IMPRESSION: Stable findings. Stable right chest tube, volume loss in the right hemithorax. There is likely cardiomegaly.
[2018-09-05] MEDS: PANTOPRAZOLE 40 MG TABLET PO SCH (10:43)
[2018-09-05] MEDS: CALCIUM CARBONATE 500 MG CHEWABLE PO SCH (12:50)
[2018-09-05] MEDS: CYANOCOBALAMIN 500 MCG TAB PO SCH (12:50)
[2018-09-05] MEDS: DOCUSATE 100 MG CAP PO SCH (12:50)
[2018-09-05] MEDS: MAGNESIUM OXIDE 400 MG TAB PO SCH (12:50)
[2018-09-05] MEDS: POTASSIUM CHLORIDE ER 10 MEQ TAB.ER.PRT PO SCH ×2 (12:51→20:19)
[2018-09-05] MEDS: PSYLLIUM HUSK 100% 6 GM PACKET PO SCH ×2 (12:51→20:19)
[2018-09-05] MEDS: VIT A,C & E-LUTEIN-MINERALS 1 EACH TAB PO SCH ×2 (12:51→22:50)
[2018-09-05] MEDS: HYDROmorphone 1 MG/ML 1 ML SYRINGE IVP PRN (14:17)
--- NOTE | 2018-09-05 15:14 | P.PN ---
Subjective Progress Note Date: 09/05/18 Principal diagnosis: Right-sided hydropneumothorax, post chest tube insertion This is an 83 -year-old female patient who has currently metastatic adenocarcinoma of the lung. The patient is known to have COPD and previous history of non-small cell lung cancer. The patient's original diagnosis of lung cancer was established in 2011 through an anterior mediastinal endoscopy. Following that the patient underwent chemoradiation therapy. She responded very well and she remained in remission for many years. As for COPD, the patient is an FEV1 of 50% of predicted and she has also underlying comorbidities including CHF, chronic atrial fibrillation, aortic valve stenosis and the patient has moderate to severe ASO with a valve area of 0.8 cm, coronary artery disease with nonocclusive disease based on the previous cardiac catheterization,, and previous history of breast cancer, and the patient is post mastectomy. The patient upon follow-up was found to have a right upper lobe lesion that was initially measuring 1.8 x 1.6 cm in size in addition to some smaller pretracheal lymph nodes measuring 9 mm. Based on this, the patient was sent for a fine-needle aspiration that did not yield any diagnosis of malignancy. Upon subsequent follow-up, the patient underwent a follow-up CAT scan imaging that showed enlargement of the right upper lobe mass and the PET scan that was done on 07/30/2018 showed increasing mass in the right middle lobe area measuring 2.8 cm in size with a maximum SUV of 8 addition to smaller 7 mm precarinal lymph nodes. There are also numerous pulmonary nodules in the left mid and the left lower lung area measuring up to 8 mm in size and few scattered pulmonary nodules on the right largest being about 2 mm in size. Patient also developed a right-sided pleural effusion. I performed a diagnostic thoracentesis on this patient. A total of 900 mL of pleural fluid was aspirated. The fluid jewel bearing turner to be malignant and the patient was referred to Dr. Corcoran for treatment and the patient is currently on immunotherapy. The patient came into the emergency department today because of worsening shortness of breath. An x-ray was done and it showed a estimated 30% right- sided hydropneumothorax with a large fluids component attributing the mediastinum and there was some limited shift to the right. Based on this, the patient was seen in emergency department and a chest tube was inserted. I inserted a chest tube and a total of 1500 of pleural fluid was aspirated immediately. There was a positive air leak. Subsequent chest x-ray showed interval improvement of a right-sided hydropneumothorax. There was still some stable pneumothorax in the right apex still seen. Tube was in a good location. The procedure without without any complications. The patient will be admitted to the hospital for now. Her underlying hemodynamics is stable for now. She is expressing some pain along the right chest area for which she is getting Dilaudid 0.5 mg every 6-8 hours. At that the patient was also having difficulties with swallowing. Previous EGD evaluation was negative. She underwent a recent modified barium swallow that showed silent penetration with coating of the vocal cords. After couple of swallows, there was a concern of aspiration based on that the patient had the procedure terminated. On 09/01/2018 patient seen in follow-up. Breathing easier today, less coughing. Right-sided chest tube is in place, no air leak noted, patient had a total of 1850 ML of serosanguineous pleural fluid since the insertion of the chest tube. Currently on 2 L per nasal cannula, with pulse ox of 96%, patient is afebrile, slightly tachycardic, heart rate of 102 BPM. States she is breathing much easier today. Today's chest x-ray has been reviewed by Dr. Mitchell, and shows improvement in the appearance of right-sided pneumothorax, basilar atelectasis. Patient is complaining of difficulty swallowing, and she underwent a recent modified barium swallow was not completed in view of silent penetration. We will aske GI service and speech therapy to reevaluate patient in regards to dysphagia. On 09/05/2018 patient seen in follow-up on selective care unit. Right-sided chest tube remains in place, to wall suction, and today's chest x-ray shows stable findings, no evident pneumothorax, elevation of the right hemidiaphragm was again noted. Prominent interstitium noted. Slight worsening of the aeration of the right base noted. Patient is on room air, with pulse ox of 92% , she is afebrile, a bit tachycardic, heart rate between 104-110 BPM. Chest tube output is serous fluid, of 180 mL over last 24 hours. Incentive spirometry effort is 500-750 today. Lung sounds are diminished over right lower base. Patient has a congested cough, she's bringing up thick yellow sputum. She is complaining of constipation, she states she has not had a bowel movement in over a week. Abdomen is soft, she denies any abdominal pain. She is on oral lactulose and Metamucil. Her Opdivo remains on hold. Objective - Vital Signs Vital signs: Vital Signs Temp 97.8 F 09/05/18 08:00 Pulse 92 09/05/18 08:45 Resp 16 09/05/18 08:00 BP 100/55 09/05/18 08:00 Pulse Ox 92 L 09/05/18 08:00 Intake & Output 09/04/18 09/05/18 09/05/18 18:59 06:59 18:59 Intake Total 240 0 Output Total 110 870 Balance 130 -870 0 Weight 63.6 kg Intake: Oral 240 0 Output: Chest Tube Drainage 110 70 Chest Tube Right Mid- 110 70 Axillary Chest Urine 800 Other: Voiding Method Bedpan Bedpan # Voids 2 - Exam General Appearance no diaphoresis, no respiratory distress, speech not interrupted by breaths, no dyspnea, no pallor, not cachectic, well nourished, appears well HEENT no pursed lip breathing, no jugular venous distention, no mucous membrane cyanosis, no perioral cyanosis, mallampati classification: class 1 Chest no barrel chest, no retractions, no sternocleidomastoid muscle contractions, no supraclavicular retractions, no intercostal retractions, no prolonged expiratory wheezing, no decreased air movement, no rhonchi, no hyperinflation, decreased air movement (diminished breath sounds in the right lung basealong with dullness to percussion his relationship with pleural effusion), the patient is postop mastectomy. Lung sounds are diminished over right base, overall diminished breath sounds bilaterally., More so on the right base. Right-sided chest tube is in place, with a total of 180 of serous pleural fluid in the last 24 hours Heart no right ventricular heave, no distant heart sounds, no s3 gallop, (normal ) jugular vein: jugular venous distention: by 0cm, Murmurs: Unspecified Location : Systolic: Grade 3 / IV (systolic ejection murmur G3/6) GI bowel sounds: hyperactive (borborygmi), bowel sounds: diminished or absent Extremities no cyanosis, no clubbing, no edema Neurologic no decreased mental status, no somnolence, no confusion Examination of the skin revealed no evidence of significant rashes, suspicious appearing nevi or other concerning lesions. - Labs CBC & Chem 7: 09/03/18 10:00 09/03/18 10:00 Assessment and Plan Plan: 1.right-sided hydropneumothorax, post chest tube insertion and removal of approximately 2 L of pleural fluid from the right hemithorax. Over the past 24 hours, the output from the right-sided chest tube has diminished. The subsequent CAT scan of the chest showed right lower lobe consolidation/ atelectasis and there was a cut off sign at the level of the bronchus intermedius. I was planning to do a bronchoscopy to evaluate the patient's bronchus intermedius and see if there is any endobronchial mucus plugging airway and preventing full expansion of the right lung. Nevertheless, on today' s chest x-ray, there is improvement in aeration of the right lung base and an very much happy with the response. She is not fully expanded however. She may need a bronchoscopy at a later stage of the findings remain unchanged. Meanwhile, keep the chest tube in place. Once the lung is fully up, the patient may need and benefit from pleurodesis. For now, she will continue using incentive spirometer. On 09/05/2018 repeat chest x-ray was obtained, and showed stable findings, with the right-sided chest tube in place, the output is decreasing, patient is on room air, however the chest x-ray still shows volume loss in the right hemithorax. 2 adenocarcinoma of the lung, stage IV. The patient is currently on immunotherapy and she received her first session of immunotherapy through Dr. Rosie lemus. 3 COPD with a baseline FEV1 of 50% of predicted 4 malignant right-sided pleural effusion 5 aortic valve stenosis, nonsurgical case and the patient has a valve area of 0.8 cm 6 paroxysmal atrial fibrillation currently on anticoagulation with Xarelto 7 worsening shortness of breath secondary to above. The patient's increased dyspnea with essentially due to development of a right-sided pleural effusion and pneumothorax/hydropneumothorax 8 nonocclusive coronary artery disease 9 hypothyroidism 10, DrKalli rivero 11 hyperlipidemia 12 trigeminal neuralgia 13 chronic ALLERGIC rhinitis 14 remote history of breast cancer with a previous right mastectomy Plan: Chest tube output is decreasing, today's chest x-ray has been reviewed, and showed stable findings, with right-sided chest tube in place, and persistent volume loss in the right hemithorax. Patient was given the option of bronchoscopy to see if there is a endobronchial mucus plugging and for evaluation of the patient's bronchus intermedius. Patient does have a strong vigorous cough, and the possibility of mucous plugging is low. Another option would be to consult cardiothoracic surgery for talc pleurodesis or placement of Pleurx catheter. The patient is agreeable to cardiothoracic evaluation. We'll consult CT surgery for the same. I performed a history & physical examination of the patient and discussed their management with my nurse practitioner, Leela Ch. I reviewed the nurse practitioner's note and agree with the documented findings and plan of care. Lung sounds are positive for diminished breath sounds over right lower. The findings and the impression was discussed with the patient. I attest to the documentation by the nurse practitioner. Time with Patient: Less than 30
--- NOTE | 2018-09-05 15:16 | P.GSCN ---
History of Present Illness Consult date: 09/05/18 Reason for Consult: Malignant right pleural effusion, adenocarcinoma of the lung, surgical recommendations. Requesting physician: Jeffrey Plummer History of present illness: This is an 83-year-old female patient who follows with Dr. Cordova on an outpatient basis. She currently has metastatic adenocarcinoma of the lung. She also has a previous medical history of COPD, non-small cell lung cancer with chemo and radiation, CHF, chronic atrial fibrillation on Xarelto for anticoagulation, aortic valve stenosis, coronary artery disease with history of cardiac catheterization, breast cancer status post right mastectomy as well as left lumpectomy. Apparently upon follow-up from her breast cancer she was found to have a right upper lobe lesion, and FNA did not show any malignancy however she had a follow-up CAT scan with PET imaging demonstrating continued increase in the mass size as well as precarinal lymphadenopathy. She developed a right-sided pleural effusion, diagnostic thoracentesis was completed by Dr. Mitchell with 900 mL output which turned out to be malignant. The patient was sent to Dr. Corcoran for treatment and is currently on immunotherapy. She was seen late last week by Dr. Mitchell in the office with increased shortness of breath. He directed her to the emergency room, an x-ray was completed demonstrating right-sided hydropneumothorax and a chest tube was inserted with immediate evacuation of 1500 mL pleural fluid. She did have an air leak at the time. She was admitted for evaluation and treatment. She has continued to have drainage into the chest tube, x-ray continues to show increased density with volume loss on the right. Dr. Medina from cardiothoracic surgery was consulted for recommendations of talc pleurodesis versus Pleurx catheter placement. Review of Systems Review of systems was completed and was negative except as noted. 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 at time of admit."c/o difficulty swallowing needs mushy food", COPD with an FEV1 of 50% of predicted, "pt receiving immunotherapy"history of" stage 4 metastatic non-small cell lung cancer adenocarcinoma with a malignant right-sided pleural effusion", history of breast cancer with a previous right mastectomy,per family in may dx w/ tumor / mass in colon has'nt had any tx or sx" macular degeneration, moderate to severe aortic stenosis with a valve area of 0.8 cm, chronic atrial fibrillation, hypertension, hyperlipidemia, acid reflux, osteoarthritis, trigeminal neuralgia , previous history of a clot behind the lt eye, , acid reflux, cardiac stenosis , coronary artery disease with nonocclusive CAD, hyperlipidemia, chronic ALLERGIC rhinitis History of Any Multi-Drug Resistant Organisms: None Reported Past Surgical History: Appendectomy, Bowel Resection, Breast Surgery, Heart Catheterization, Orthopedic Surgery, Tubal Ligation Additional Past Surgical History / Comment(s): RT MASTECTOMY, LT BREAST LUMPECTOMY.rt sided thorcentesis RT SHOULDER SURG X2. ESOPHAGUS "SHAVED D/T BRONCHITIS.", elise cataracts, chest tube Past Anesthesia/Blood Transfusion Reactions: Previous Problems w/ Anesthesia Additional Past Anesthesia/Blood Transfusion Reaction / Comm: HX SEVERE HEADACHES LONG TIME AGO.. daughter stated that "in past with aa pt's poatssium would jump up" Past Psychological History: No Psychological Hx Reported Additional Psychological History / Comment(s): pt lives alone in 2 story home but stays on main level. no home care servies. has nebulizer. Smoking Status: Former smoker Past Alcohol Use History: None Reported Additional Past Alcohol Use History / Comment(s): started smoking at age 14 smoked 2 PPD, QUIT 1988 EST. Past Drug Use History: None Reported - Past Family History Mother Daughter(s) Family Medical History: Cancer Daughter(s) Family Medical History: Cancer Additional Family Medical History / Comment(s): breast Mother Family Medical History: Cancer Additional Family Medical History / Comment(s): breast Medications and Allergies Home Medications Medication Instructions Recorded Confirmed Type Omeprazole [PriLOSEC] 20 mg PO BID PRN 03/06/14 08/31/18 History Potassium Chloride [K-Tab ER] 10 meq PO BID 03/06/14 08/31/18 History Pravastatin Sodium [Pravachol] 80 mg PO HS 03/06/14 08/31/18 History Rivaroxaban [Xarelto] 20 mg PO W/SUPPER 03/06/14 08/31/18 History Cholecalciferol [Vitamin D3] 1,000 unit PO DAILY 10/26/16 08/31/18 History Metoprolol Tartrate [Lopressor] 25 mg PO DAILY 11/04/16 08/31/18 History Vit C/E/Zn/Coppr/Lutein/Zeaxan 1 cap PO BID 11/04/16 08/31/18 History [Preservision Areds 2 Softgel] Cetirizine HCl [Zyrtec] 10 mg PO DAILY 12/02/17 08/31/18 History Biotin 2,000 mcg PO DAILY 03/07/18 08/31/18 History Calcium Carbonate [Calcium] 600 mg PO DAILY 03/07/18 08/31/18 History Cyanocobalamin (Vitamin B-12) 1,000 mcg PO DAILY 03/07/18 08/31/18 History [Vitamin B-12] Cyclobenzaprine [Flexeril] 5 mg PO TID PRN 08/31/18 08/31/18 History Docusate [Colace] 200 mg PO DAILY 08/31/18 08/31/18 History Fluconazole [Diflucan] See Taper PO DAILY 08/31/18 08/31/18 History Fluticasone Nasal Bath [Flonase 1 spray EA NOSTRIL BID 08/31/18 08/31/18 History Nasal Bath] Furosemide [Lasix] 20 mg PO DAILY 08/31/18 08/31/18 History Lisinopril [Prinivil] 5 mg PO DAILY 08/31/18 08/31/18 History Magnesium Oxide [Mag-Ox] 250 mg PO DAILY 08/31/18 08/31/18 History Meclizine [Antivert] 25 mg PO TID PRN 08/31/18 08/31/18 History Nystatin 100,000 Unit/ml Susp 5 ml PO QID 08/31/18 08/31/18 History [Mycostatin Oral Susp] Ondansetron [Zofran ODT] 4 mg PO Q6H PRN 08/31/18 08/31/18 History Pantoprazole Sodium [Protonix] 40 mg PO DAILY 08/31/18 08/31/18 History Allergies Allergy/AdvReac Type Severity Reaction Status Date / Time codeine AdvReac stomach Verified 08/31/18 11:54 upset, UNLESS TAKEN WITH FOOD BED SHEETS AdvReac Unknown Itching/bum Uncoded 08/31/18 11:39 ps Surgical - Exam Vital Signs Temp Pulse Resp BP Pulse Ox 97.8 F 103 H 20 118/73 94 L 08/31/18 11:36 08/31/18 11:36 08/31/18 11:36 08/31/18 11:36 08/31/18 11:36 - General well developed, well nourished, no distress, moderate pain, chronically ill - Eyes PERRL, normal ocular movement - ENT no hearing loss - Neck no masses, no bruits, trachea midline - Respiratory Lungs sounds diminished bilaterally, right greater than left. Respirations even , nonlabored at the moment. Currently on room air with oxygen saturations in the low 90s. Right pleural chest tube to continuous wall suction, 70 mL serous drainage overnight. No air leak present. - Cardiovascular S1, S2 present, systolic murmur. Regular rate and rhythm, sinus rhythm on telemetry. Palpable peripheral pulses bilaterally. No edema present. No calf pain or tenderness noted. - Abdomen Abdomen: soft, non tender, bowel sounds - Genitourinary Deferred - Rectum Deferred - Integumentary Evidence of right-sided mastectomy, surgical scar present. no rash, no growths, no abnormal pigmentation - Neurologic normal coordination, normal sensation - Musculoskeletal normal gait, normal posture - Psychiatric oriented to time, oriented to person, oriented to place, speech is normal, memory intact Results - Labs 09/03/18 10:00 09/03/18 10:00 - Imaging Chest x-ray: report reviewed, image reviewed CT scan - chest: report reviewed, image reviewed Assessment and Plan (1) Chronic atrial fibrillation Current Visit: Yes Status: Chronic Code(s): I48.2 - CHRONIC ATRIAL FIBRILLATION SNOMED Code(s): 380864842 (2) Chronic anticoagulation Current Visit: Yes Status: Chronic Code(s): Z79.01 - LONG-TERM (CURRENT) USE OF ANTICOAGULANTS SNOMED Code(s): 237704583 (3) Congestive heart failure Current Visit: Yes Status: Chronic Code(s): I50.9 - HEART FAILURE, UNSPECIFIED SNOMED Code(s): 47982140 (4) Aortic valve stenosis Current Visit: Yes Status: Chronic Code(s): I35.0 - NONRHEUMATIC AORTIC ( VALVE) STENOSIS SNOMED Code(s): 25126295 (5) Coronary artery disease Current Visit: Yes Status: Chronic Code(s): I25.10 - ATHSCL HEART DISEASE OF [place] CORONARY ARTERY W/O ANG PCTRS SNOMED Code(s): 95039221 (6) Hydropneumothorax Current Visit: Yes Status: Acute Code(s): J94.8 - OTHER SPECIFIED PLEURAL CONDITIONS SNOMED Code(s): 34488022 (7) Lung cancer Current Visit: Yes Status: Chronic Code(s): C34.90 - MALIGNANT NEOPLASM OF UNSP PART OF UNSP BRONCHUS OR LUNG SNOMED Code(s): 715697046 (8) COPD (chronic obstructive pulmonary disease) Current Visit: Yes Status: Chronic Code(s): J44.9 - CHRONIC OBSTRUCTIVE PULMONARY DISEASE, UNSPECIFIED SNOMED Code(s): 68718990 Plan: The patient was seen and examined at the bedside with Dr. Medina. Chart/ diagnostics were reviewed. Being that she just received immunotherapy treatment and the output in her chest tube has significantly decreased, we will wait for another day to see what her chest x-ray looks like tomorrow morning to further determine appropriate therapy. This was discussed with the patient and her daughter who is suffering bedside, and she is in agreement. Continue current medical therapy per primary/pulmonology/oncology. Thank you Dr. Plummer for this consult. We look forward to working with you in the care of your patient. Time with Patient: Greater than 30
[2018-09-05] MEDS: RIVAROXABAN 20 MG TAB PO SCH (17:13)
[2018-09-05] MEDS ORDERED: MAGNESIUM CITRATE 296 ML BOTTLE PO ONE (19:48)
[2018-09-05] MEDS: SENNOSIDES-DOCUSATE SODIUM 1 EACH TAB PO SCH (20:19)
[2018-09-05] MEDS: PRAVASTATIN SODIUM 80 MG TAB PO SCH (20:19)
[2018-09-05] MEDS: ALPRAZolam 0.25 MG TAB PO PRN (20:19)
--- NOTE | 2018-09-05 20:28 | PN ---
PROGRESS NOTE DATE OF SERVICE: 09/05/18. PRESENT COMPLAINT: Short of breath. INTERVAL HISTORY: This is a patient with metastatic lung cancer, presented with a large right hydropneumothorax, now has got a chest tube in place. Dr. Plummer did talk to patient about a possible bronchoscopy, but she did not want to have the same, hence, cardiothoracic surgery has been consulted with a possibility for pleurodesis versus PleurX. The patient is having intermittent coughing. Tolerating some diet. Still constipated. REVIEW OF SYSTEMS: Done for constitutional, cardiovascular, GI, pulmonary; relevant findings as above. CURRENT MEDICATIONS: Reviewed. PHYSICAL EXAMINATION: Temperature 98.1, pulse 79, respiration 18, blood pressure 93/56, pulse 94 percent on room air. GENERAL APPEARANCE: Sitting up on a chair, tired-appearing. EYES: Pupils equal. Conjunctivae normal. HEENT: External appearance of nose and ears normal. Oral cavity normal. NECK: JVD not raised. Mass not palpable. RESPIRATORY: Effort normal. Expiratory effort increased. Lungs decreased breath sounds. CARDIOVASCULAR: First and second sounds, no edema. ABDOMEN: Soft, nontender. Liver and spleen not palpable. CHEST WALL: Right-sided chest tube. PSYCH: AO x3. Mood and affect normal. INVESTIGATIONS: Chest x-ray, stable findings with some loss of volume in the right hemithorax. ASSESSMENT: 1. Large right hydropneumothorax, probable pleural effusion, malignant, status post right-sided chest tube. 2. Stage IV metastatic adenocarcinoma of the lung on immunotherapy, Opdivo currently held. 3. Paroxysmal atrial fibrillation currently in sinus rhythm on Xarelto. 4. Chronic obstructive pulmonary disease in an ex-smoker. 5. Gastroesophageal reflux disease. 6. Hyperlipidemia. 7. Essential hypertension. 8. Primary osteoarthritis. 9. Macular degeneration. 10.Severe aortic stenosis, valve area 0.8 cm2 nonrheumatic. 11.Trigeminal neuralgia. 12.Coronary artery disease, nonocclusive. 13.Mild protein-calorie malnutrition with decreased oral intake. 14.Narcotic induced constipation. PLAN: Continue medication and treatment plan. Cardiothoracic surgery was consulted. They will watch for another 24 hours and decide what further intervention. The patient did not want a bronchoscopy. The patient is already on Metamucil. We will make the lactulose as scheduled and switched Colace to Senokot S. MMODL / ANNN: [phone] /
[2018-09-06] MEDS: HYDROmorphone 1 MG/ML 1 ML SYRINGE IVP PRN ×4 (00:17→22:11)
[2018-09-06] MEDS: LACTULOSE 20 GM/30 ML CUP PO SCH ×2 (06:38→08:44)
[2018-09-06] MEDS: PANTOPRAZOLE 40 MG TABLET PO SCH (06:39)
[2018-09-06] MEDS: ONDANSETRON 4 MG/2 ML VIAL IVP PRN ×3 (06:52→21:58)
--- NOTE | 2018-09-06 08:15 | XR ---
EXAMINATION TYPE: XR chest 1V portable DATE OF EXAM: 09/06/2018 COMPARISON: Prior chest x-ray 09/05/[address] 09/02/2018 HISTORY: Chest tube and abnormal chest x-ray TECHNIQUE: Single frontal view of the chest is obtained. FINDINGS: Right-sided chest tube in volume loss again noted. The right hemidiaphragm and heart borde r are obscured. Heart size is likely stable. No evident pneumothorax. Surgical clips over the left ch est are noted. Interstitium is prominent. Patient's lung nodules are not well seen on plain film. IMPRESSION: Postop changes, stable exam. Right pleural effusion and associated atelectasis. Underlyi ng lung mass right upper lobe is obscured.
[2018-09-06] MEDS: IPRATROPIUM-ALBUTEROL 3 ML NEB INHALATION SCH ×3 (08:23→20:46)
[2018-09-06] MEDS: NYSTATIN 100,000 UNIT/ML SUSP 500,000 UNIT/5 ML CUP PO SCH ×4 (08:43→21:36)
[2018-09-06] MEDS: POTASSIUM CHLORIDE ER 10 MEQ TAB.ER.PRT PO SCH ×2 (08:43→21:36)
[2018-09-06] MEDS: METOPROLOL TARTRATE 25 MG TAB PO SCH (08:43)
[2018-09-06] MEDS: MAGNESIUM OXIDE 400 MG TAB PO SCH (08:43)
[2018-09-06] MEDS: FUROSEMIDE 20 MG TAB PO SCH (08:43)
[2018-09-06] MEDS: SENNOSIDES-DOCUSATE SODIUM 1 EACH TAB PO SCH ×2 (08:44→21:36)
--- NOTE | 2018-09-06 08:49 | P.PN ---
Subjective Progress Note Date: 09/06/18 Principal diagnosis: Malignant right pleural effusion, adenocarcinoma of the lung. Previous medical history of COPD, previous non-small cell lung cancer and chemoradiation, CHF, chronic atrial fibrillation several total for anticoagulation, aortic valve stenosis, coronary artery disease with history of cardiac catheterization, breast cancer status post right mastectomy as well as left lumpectomy. The patient is currently laying in bed in no acute distress. Does complain of nausea and continued shortness of breath. She does not complain of any pain. She is working diligently on her incentive spirometer but is only able to achieve approximately 500 mL. Chest tube output continues to decrease. Objective - Vital Signs Vital signs: Vital Signs Temp 97.9 F 09/06/18 08:00 Pulse 100 09/06/18 08:23 Resp 18 09/06/18 08:00 BP 104/66 09/06/18 08:00 Pulse Ox 89 L 09/06/18 08:00 Intake & Output 09/05/18 09/06/18 09/06/18 18:59 06:59 18:59 Intake Total 240 Output Total 130 0 Balance 110 0 Weight 63.6 kg 62.9 kg Intake: Oral 240 Output: Chest Tube Drainage 40 0 Chest Tube Right Mid- 40 0 Axillary Chest Urine 90 Other: Voiding Method Bedpan # Voids 350 # Bowel Movements 1 - Constitutional General appearance: Present: cooperative, no acute distress - Respiratory Details: Lungs sounds are diminished bilaterally, right greater than left, coarse breath sounds in the right base. Respirations even, nonlabored. Currently on room air with oxygen saturation 94%. Only able to achieve 500 mL on her incentive spirometry. Right pleural chest tube to continuous wall suction, no documented output overnight, 100 mL serous drainage in the last 24 hours, no air leak present. - Cardiovascular Details: S1, S2 present. Regular but tachycardic rate and rhythm, sinus tach on telemetry. Palpable peripheral pulses bilaterally. No edema present. No calf pain or tenderness noted. - Gastrointestinal Gastrointestinal Comment(s): Abdomen soft, nontender, nondistended. Active bowel sounds present. Patient tolerating minimal diet, very nauseous. - Genitourinary Genitourinary Comment(s): Continues to void. - Integumentary Integumentary Comment(s): Skin is warm and dry with evidence of good perfusion. - Neurologic Neurologic: Present: CNII-XII intact - Musculoskeletal Musculoskeletal: Present: gait normal, strength equal bilaterally - Psychiatric Psychiatric: Present: A&O x's 3, appropriate affect, intact judgment & insight - Allied health notes Allied health notes reviewed: nursing - Labs CBC & Chem 7: 09/03/18 10:00 09/03/18 10:00 - Imaging and Cardiology Chest x-ray: report reviewed, image reviewed Assessment and Plan (1) Chronic atrial fibrillation Current Visit: Yes Status: Chronic Code(s): I48.2 - CHRONIC ATRIAL FIBRILLATION SNOMED Code(s): 125408857 (2) Chronic anticoagulation Current Visit: Yes Status: Chronic Code(s): Z79.01 - ASSISTED (CURRENT) USE OF ANTICOAGULANTS SNOMED Code(s): 744432568 (3) Congestive heart failure Current Visit: Yes Status: Chronic Code(s): I50.9 - HEART FAILURE, UNSPECIFIED SNOMED Code(s): 60963323 (4) Aortic valve stenosis Current Visit: Yes Status: Chronic Code(s): I35.0 - NONRHEUMATIC AORTIC ( VALVE) STENOSIS SNOMED Code(s): 42018988 (5) Coronary artery disease Current Visit: Yes Status: Chronic Code(s): I25.10 - ATHSCL HEART DISEASE OF [place] CORONARY ARTERY W/O ANG PCTRS SNOMED Code(s): 92984828 (6) Hydropneumothorax Current Visit: Yes Status: Acute Code(s): J94.8 - OTHER SPECIFIED PLEURAL CONDITIONS SNOMED Code(s): 43466728 (7) Lung cancer Current Visit: Yes Status: Chronic Code(s): C34.90 - MALIGNANT NEOPLASM OF UNSP PART OF UNSP BRONCHUS OR LUNG SNOMED Code(s): 660593141 (8) COPD (chronic obstructive pulmonary disease) Current Visit: Yes Status: Chronic Code(s): J44.9 - CHRONIC OBSTRUCTIVE PULMONARY DISEASE, UNSPECIFIED SNOMED Code(s): 05501683 Plan: 1. Continue chest tube to continuous wall suction. Monitor output. 2. No Pleurx catheter at this time. Will make decision today regarding talc pleurodesis. 3. Encourage incentive spirometry use 10 times every hour while awake. 4. Radical management per primary, pulmonology, oncology. 5. GI/DVT prophylaxis. 6. More recommendations to follow. Time with Patient: Greater than 30
--- NOTE | 2018-09-06 10:32 | P.PN ---
Subjective Progress Note Date: 09/06/18 Principal diagnosis: Right-sided hydropneumothorax, status post chest tube insertion. This is an 83 -year-old female patient who has currently metastatic adenocarcinoma of the lung. The patient is known to have COPD and previous history of non-small cell lung cancer. The patient's original diagnosis of lung cancer was established in 2011 through an anterior mediastinal endoscopy. Following that the patient underwent chemoradiation therapy. She responded very well and she remained in remission for many years. As for COPD, the patient is an FEV1 of 50% of predicted and she has also underlying comorbidities including CHF, chronic atrial fibrillation, aortic valve stenosis and the patient has moderate to severe ASO with a valve area of 0.8 cm, coronary artery disease with nonocclusive disease based on the previous cardiac catheterization,, and previous history of breast cancer, and the patient is post mastectomy. The patient upon follow-up was found to have a right upper lobe lesion that was initially measuring 1.8 x 1.6 cm in size in addition to some smaller pretracheal lymph nodes measuring 9 mm. Based on this, the patient was sent for a fine-needle aspiration that did not yield any diagnosis of malignancy. Upon subsequent follow-up, the patient underwent a follow-up CAT scan imaging that showed enlargement of the right upper lobe mass and the PET scan that was done on 07/30/2018 showed increasing mass in the right middle lobe area measuring 2.8 cm in size with a maximum SUV of 8 addition to smaller 7 mm precarinal lymph nodes. There are also numerous pulmonary nodules in the left mid and the left lower lung area measuring up to 8 mm in size and few scattered pulmonary nodules on the right largest being about 2 mm in size. Patient also developed a right-sided pleural effusion. I performed a diagnostic thoracentesis on this patient. A total of 900 mL of pleural fluid was aspirated. The fluid clipper and turner to be malignant and the patient was referred to Dr. Corcoran for treatment and the patient is currently on immunotherapy. The patient came into the emergency department today because of worsening shortness of breath. An x-ray was done and it showed a estimated 30% right- sided hydropneumothorax with a large fluids component attributing the mediastinum and there was some limited shift to the right. Based on this, the patient was seen in emergency department and a chest tube was inserted. I inserted a chest tube and a total of 1500 of pleural fluid was aspirated immediately. There was a positive air leak. Subsequent chest x-ray showed interval improvement of a right-sided hydropneumothorax. There was still some stable pneumothorax in the right apex still seen. Tube was in a good location. The procedure without without any complications. The patient will be admitted to the hospital for now. Her underlying hemodynamics is stable for now. She is expressing some pain along the right chest area for which she is getting Dilaudid 0.5 mg every 6-8 hours. At that the patient was also having difficulties with swallowing. Previous EGD evaluation was negative. She underwent a recent modified barium swallow that showed silent penetration with coating of the vocal cords. After couple of swallows, there was a concern of aspiration based on that the patient had the procedure terminated. On 09/01/2018 patient seen in follow-up. Breathing easier today, less coughing. Right-sided chest tube is in place, no air leak noted, patient had a total of 1850 ML of serosanguineous pleural fluid since the insertion of the chest tube. Currently on 2 L per nasal cannula, with pulse ox of 96%, patient is afebrile, slightly tachycardic, heart rate of 102 BPM. States she is breathing much easier today. Today's chest x-ray has been reviewed by Dr. Mitchell, and shows improvement in the appearance of right-sided pneumothorax, basilar atelectasis. Patient is complaining of difficulty swallowing, and she underwent a recent modified barium swallow was not completed in view of silent penetration. We will aske GI service and speech therapy to reevaluate patient in regards to dysphagia. Patient is seen today 09/02/2018 in follow-up on the selective care unit. She is awake and alert in no acute distress. She is currently sitting up in a chair at the bedside. She does have a loose productive cough of thick sputum. Right-sided chest tube remains in place. We'll serosanguineous drainage. Positive leak with cough. X-ray continues to show right basilar pleural effusion with underlying atelectasis/infiltrate. No sizable pneumothorax. He is continued on DuoNeb inhalations. She is working well with the incentive spirometer. She is currently afebrile. Hemodynamically stable. Maintaining good O2 saturations in the 90s on 2 L/m per nasal cannula. Speech evaluation regarding her dysphagia revealed evidence of presbyesophagus. He has been seen and evaluated by GI services and she is encouraged to avoid meats and breads. A PEG tube was offered but the patient is declining at this time. No plans for EGD. On 09/03/2018, Alicia is doing better and the patient is less short of breath compared to yesterday. The chest x-ray from today shows no evidence of any pneumothorax and a chest tube remains in a good location. Nevertheless, there is still persistent opacification of the right lung base. The chest tube still in place and the total amount of output in the chest tube has been about 3 9 0 mL for yesterday. No evidence of any air leak. Based on the presence of persistent opacification of the right lung base him on a CAT scan of the chest was obtained that showed a small apical anterior right sided pneumothorax. There is a small right basilar pleural effusion. The right lower lobe is still atelectatic and there is a cutoff sign at the level of distal bronchus intermedius. Also, the right middle lobe mass was again seen. The exact cause for the right lower lobe atelectasis is not clear. I think this is to be further investigated by a bronchoscopy. The patient is not producing significant amount of sputum. Her swallowing was evaluated. A modified barium swallow was done which she passed without any evidence of aspiration. No significant chest pain. Chest tubes remains in a good location. On today's evaluation of 09/04/2018, the patient is looking well. The patient is no specific complaints. She is hemodynamically stable. Right-sided chest tube is still in place. The follow-up chest tubes removed from this morning showed that the right sided chest tube still in place. There is no evidence of any pneumothorax. There is improvement in aeration in the right lung base and the right basilar airspace disease. The patient is coughing up some liquid sputum which is noncolored. He is using incentive spirometer. The chest tube output for yesterday was in order of 280 mL and there is no evidence of any air leak and the pleural VAC. Patient is tolerating diet. No significant pain across the right chest area. No nausea. No vomiting. No diarrhea. No abdominal pain. Pain is under good control. She had been complaining of dysphagia and the workup was been essentially negative. On 09/05/2018 patient seen in follow-up on selective care unit. Right-sided chest tube remains in place, to wall suction, and today's chest x-ray shows stable findings, no evident pneumothorax, elevation of the right hemidiaphragm was again noted. Prominent interstitium noted. Slight worsening of the aeration of the right base noted. Patient is on room air, with pulse ox of 92% , she is afebrile, a bit tachycardic, heart rate between 104-110 BPM. Chest tube output is serous fluid, of 180 mL over last 24 hours. Incentive spirometry effort is 500-750 today. Lung sounds are diminished over right lower base. Patient has a congested cough, she's bringing up thick yellow sputum. She is complaining of constipation, she states she has not had a bowel movement in over a week. Abdomen is soft, she denies any abdominal pain. She is on oral lactulose and Metamucil. Her Opdivo remains on hold. The patient is seen again today 09/06/2018 in follow-up on the selective care unit. She is currently sitting up at the bedside. She is awake and alert in no acute distress. She is maintaining good O2 saturations in the 90s on room air. She's been afebrile. Slightly tachycardic. Blood pressure stable. Chest x-ray reveals postoperative changes. There is a right pleural effusion with associated atelectasis. Underlying lung mass in the right upper lobe is obscured. Chest tube remains in place. She is working with the incentive spirometer still only approximately 500 ML's. She remains on bronchodilators. Fentanyl and Dilaudid for pain control. Objective - Vital Signs Vital signs: Vital Signs Temp 97.9 F 09/06/18 08:00 Pulse 100 09/06/18 08:38 Resp 18 09/06/18 08:00 BP 104/66 09/06/18 08:00 Pulse Ox 89 L 09/06/18 08:00 Intake & Output 09/05/18 09/06/18 09/06/18 18:59 06:59 18:59 Intake Total 240 Output Total 130 0 Balance 110 0 Weight 63.6 kg 62.9 kg Intake: Oral 240 Output: Chest Tube Drainage 40 0 Chest Tube Right Mid- 40 0 Axillary Chest Urine 90 Other: Voiding Method Bedpan # Voids 350 # Bowel Movements 1 - Exam General Appearance no diaphoresis, no respiratory distress, speech not interrupted by breaths, no dyspnea, no pallor, not cachectic, well nourished, appears well HEENT no pursed lip breathing, no jugular venous distention, no mucous membrane cyanosis, no perioral cyanosis, mallampati classification: class 1 Chest no barrel chest, no retractions, no sternocleidomastoid muscle contractions, no supraclavicular retractions, no intercostal retractions, no prolonged expiratory wheezing, no decreased air movement, no rhonchi, no hyperinflation, decreased air movement, the patient is postop mastectomy. Lung sounds are diminished over right base, overall diminished breath sounds bilaterally. Right-sided chest tube is in place Heart no right ventricular heave, no distant heart sounds, no s3 gallop, (normal ) jugular vein: jugular venous distention: by 0cm, Murmurs: Unspecified Location : Systolic: Grade 3 / IV (systolic ejection murmur G3/6) GI bowel sounds: hyperactive (borborygmi), bowel sounds: diminished or absent Extremities no cyanosis, no clubbing, no edema Neurologic no decreased mental status, no somnolence, no confusion Examination of the skin revealed no evidence of significant rashes, suspicious appearing nevi or other concerning lesions. - Labs CBC & Chem 7: 09/03/18 10:00 09/03/18 10:00 Assessment and Plan Assessment: Impression: 1 right-sided hydropneumothorax, post chest tube insertion and there is positive air leak with some residual pneumothorax on subsequent chest x-ray. Computed tomography scan of the chest revealed a small right pneumothorax. On her right pleural effusion. Chest tube in place. Peripheral mid right lung mass. There is also multiple peripheral punctate nodularities within the left lung suspicious for metastatic disease. 2 adenocarcinoma of the lung, stage IV. The patient is currently on immunotherapy and she received her first session of Opdivo through Dr. Corcoran 3 COPD with a baseline FEV1 of 50% of predicted 4 malignant right-sided pleural effusion 5 aortic valve stenosis, nonsurgical case and the patient has a valve area of 0.8 cm 6 paroxysmal atrial fibrillation currently on anticoagulation with Xarelto 7 worsening shortness of breath secondary to above. The patient's increased dyspnea with essentially due to development of a right-sided pleural effusion and pneumothorax/hydropneumothorax 8 nonocclusive coronary artery disease 9 hypothyroidism 10 moderate to severe aortic stenosis 11 hyperlipidemia 12 trigeminal neuralgia 13 chronic ALLERGIC rhinitis 14 remote history of breast cancer with a previous right mastectomy Plan: The patient was seen and evaluated by Dr. Plummer. Chest x-ray was reviewed. Chest tube remains in place. CT services are considering pleurodesis. She is again encouraged regarding the increased use of the incentive spirometer. We' ll increase her activity as tolerated. Continue bronchodilators. We'll continue to follow. I, the cosigning physician, performed a history & physical examination of the patient. Lungs sounds few scattered rhonchi more so on the right lung. Maintaining good O2 saturations in the 90s on room air. I discussed the assessment and plan of care with my nurse practitioner, Rehana Sanchez. I attest to the above note as dictated by her.
--- NOTE | 2018-09-06 11:29 | CDI ---
Last Revision, October 2017 Documentation Clarification Form Date: 09/06/2018 11:10:18 AM From: Sugey ArtRomeroCATRACHITA resendez, CCDS Admit Date: 08/31/2018 3:56:00 PM Patient Name: Alicia Mackay Visit Number: [id number] Discharge Date: ATTENTION: The Clinical Documentation Specialists (CDI) and [facility] Coding Staff appreciate your assistance in clarifying documentation. Please respond to the clarification below the line at the bottom and electronically sign. The CDI & [facility] Coding staff will review the response and follow-up if needed. Please note: Queries are made part of the Legal Health Record. If you have any questions, please contact the author of this message via ITS. Corky Galdamez MD: Patient is admitted with a hydropneumothorax with an extensive history of cancer of bilateral breasts & lung with metastatic lung CA also. Also previously diagnosed with a malignant pleural effusion. History/Risk Factors: Cancer as noted above, status post chemo & radiation. Chronic atrial fibrillation, COPD, Severe aortic stenosis & non-occlusive CAD. Clinical Indicators: Congestive heart failure is documented in the CVAS consult & 09/06 progress note without specificity. Admission VS: P 103^, R 20 (SOB), BP 118/73 - 133/93; PO 94 ra Resp rate up to 26 on 09/04. Heart rate 104 - 113 - 126, currently 101. BNP: 430 CXR (08/31): Improvement of right side hydropneumothorax with basilar consolidation. CXR (09/01): Basilar atelectasis & possible associated effusion, difficult to exclude pneumonia. CXR (09/02): Rt side CT in place, rt basilar pleural effusion w/atelectasis or infiltrate. CXR (09/03): Combination of pleural fluid & rt lung mass. CXR (09/04): Improved aeration. Treatment: Right Chest Tube, IV Dilaudid, O2 2Lnc, Albuterol INH, po Lasix 20 mg (home dose). In your professional opinion, can you please clarify the acuity and type of CHF if known? Systolic Heart Failure: Acute, Chronic, Acute on Chronic Diastolic Heart Failure: Acute, Chronic, Acute on Chronic Systolic & Diastolic Heart Failure: Acute, Chronic, Acute on Chronic Heart Failure Unable to Determine Other, please specify Patient has chronic heart failure by history, unsure of type. [facility]
[2018-09-06] MEDS: VIT A,C & E-LUTEIN-MINERALS 1 EACH TAB PO SCH ×2 (12:40→21:36)
[2018-09-06] MEDS: CYANOCOBALAMIN 500 MCG TAB PO SCH (12:40)
[2018-09-06] MEDS: CALCIUM CARBONATE 500 MG CHEWABLE PO SCH (12:42)
[2018-09-06] MEDS: LISINOPRIL 5 MG TAB PO SCH (12:42)
[2018-09-06] MEDS: CLOTRIMAZOLE TROCHE 10 MG TROCHE MUCOUS MEM SCH ×4 (12:42→21:36)
[2018-09-06] MEDS: PSYLLIUM HUSK 100% 6 GM PACKET PO SCH ×2 (12:42→21:37)
[2018-09-06] MEDS ORDERED: TALC INTRAPLEUR ONE ×6 (13:28→14:00)
[2018-09-06] MEDS ORDERED: SODIUM CHLORIDE INTRAPLEUR ONE ×6 (13:28→14:00)
[2018-09-06] MEDS ORDERED: LIDOCAINE INTRAPLEUR ONE ×6 (13:28→14:00)
[2018-09-06] MEDS ORDERED: STERILE INTRAPLEUR ONE ×6 (13:28→14:00)
[2018-09-06] MEDS ORDERED: HYDROmorphone 1 MG/ML 1 ML SYRINGE IVP STA (14:14)
[2018-09-06] MEDS: RIVAROXABAN 20 MG TAB PO SCH (17:22)
[2018-09-06] MEDS: PRAVASTATIN SODIUM 80 MG TAB PO SCH (21:37)
--- NOTE | 2018-09-06 23:22 | PN ---
PROGRESS NOTE DATE OF SERVICE: September 06, 2018. PRESENTING COMPLAINT: Short of breath. INTERVAL HISTORY: Patient lung cancer, presented with large right-sided hydropneumothorax and had a chest tube in place. The patient had a chest tube taken out today. Pleurodesis was carried out by cardiothoracic team. The patient had a large bowel movement overnight and this morning. Lying in bed. Daughter at the bedside. REVIEW OF SYSTEMS: Done for constitutional, cardiovascular, GI, pulmonary and relevant findings as above. CURRENT MEDICATIONS: Reviewed. PHYSICAL EXAMINATION: VITAL SIGNS: Temperature 98.3, pulse 108, respiration 17, blood pressure 95/59, pulse ox 94 percent on room air. GENERAL APPEARANCE: Lying in bed, awake. EYES: Pupils equal. Conjunctivae pale. HEENT: External appearance of nose and ears normal. Oral cavity normal. NECK: JVD not raised. Mass not palpable. RESPIRATORY: Effort increased. LUNGS decreased breath sounds. CARDIOVASCULAR: 1st and 2nd sounds normal. No edema. ABDOMEN: Soft, nontender. Liver and spleen not palpable. PSYCHIATRY: Alert and oriented x3. Mood and affect normal. Chest tube is out. INVESTIGATIONS: No blood work today. ASSESSMENT: 1. Large right hydropneumothorax but again status post right-sided chest tube now removed. 2. Status post right-sided pleurodesis today. 3. Stage IV metastatic adenocarcinoma of the lung on immunotherapy Opdivo currently being held. 4. Paroxysmal atrial fibrillation currently in sinus rhythm on Xarelto. 5. Chronic obstructive pulmonary disease in an ex-smoker. 6. Gastroesophageal reflux disease. 7. Hyperlipidemia. 8. Essential hypertension. 9. Primary osteoarthritis. 10.Macular degeneration. 11.Severe aortic stenosis, valve area 0.8 cm nonrheumatic. 12.Trigeminal neuralgia. 13.Coronary artery disease, nonocclusive. 14.Mild protein-calorie malnutrition from decreased oral intake. 15.Narcotic induced constipation responded well to diuretics. PLAN: Care was discussed with the patient. If remains stable, possible discharge in next 24 hours to follow up with the oncology. MMODL / ANNN: [id number] /
[2018-09-07] MEDS: PANTOPRAZOLE 40 MG TABLET PO SCH (05:59)
[2018-09-07] MEDS: CALCIUM CARBONATE 500 MG CHEWABLE PO SCH (08:41)
[2018-09-07] MEDS: CLOTRIMAZOLE TROCHE 10 MG TROCHE MUCOUS MEM SCH ×4 (08:41→21:34)
[2018-09-07] MEDS: POTASSIUM CHLORIDE ER 10 MEQ TAB.ER.PRT PO SCH ×2 (08:41→21:34)
[2018-09-07] MEDS: NYSTATIN 100,000 UNIT/ML SUSP 500,000 UNIT/5 ML CUP PO SCH ×4 (08:41→21:35)
[2018-09-07] MEDS: SENNOSIDES-DOCUSATE SODIUM 1 EACH TAB PO SCH ×2 (08:41→21:35)
[2018-09-07] MEDS: FUROSEMIDE 20 MG TAB PO SCH (08:41)
[2018-09-07] MEDS: LISINOPRIL 5 MG TAB PO SCH (08:41)
[2018-09-07] MEDS: METOPROLOL TARTRATE 25 MG TAB PO SCH (08:41)
[2018-09-07] MEDS: CYANOCOBALAMIN 500 MCG TAB PO SCH (08:42)
[2018-09-07] MEDS: MAGNESIUM OXIDE 400 MG TAB PO SCH (08:42)
[2018-09-07] MEDS: HYDROmorphone 1 MG/ML 1 ML SYRINGE IVP PRN ×3 (08:42→21:35)
[2018-09-07] MEDS: PSYLLIUM HUSK 100% 6 GM PACKET PO SCH ×2 (08:42→21:35)
[2018-09-07] MEDS: LACTULOSE 20 GM/30 ML CUP PO SCH (08:44)
[2018-09-07] MEDS: ONDANSETRON 4 MG/2 ML VIAL IVP PRN ×2 (08:54→21:47)
[2018-09-07] MEDS: IPRATROPIUM-ALBUTEROL 3 ML NEB INHALATION SCH ×3 (09:08→20:39)
--- NOTE | 2018-09-07 10:26 | XR ---
EXAMINATION TYPE: XR chest 1V portable DATE OF EXAM: 09/07/2018 COMPARISON: 09/06/2018 HISTORY: Chest tube placement TECHNIQUE: Single frontal view of the chest is obtained. FINDINGS: Right-sided consolidation and pleural effusion are stable. Apical pleural thickening uncha nged. Postsurgical change overlying the left chest. Underlying COPD and chronic interstitial lung dis ease suspected. Diffuse osteopenia and arthropathy of the shoulders. Atherosclerotic change aorta. IMPRESSION: 1. Pleural-parenchymal changes are stable. Chest tube remains in position.
--- NOTE | 2018-09-07 10:53 | P.PN ---
Subjective Progress Note Date: 09/07/18 Principal diagnosis: Right-sided hydropneumothorax, status post chest tube insertion. This is an 83 -year-old female patient who has currently metastatic adenocarcinoma of the lung. The patient is known to have COPD and previous history of non-small cell lung cancer. The patient's original diagnosis of lung cancer was established in 2011 through an anterior mediastinal endoscopy. Following that the patient underwent chemoradiation therapy. She responded very well and she remained in remission for many years. As for COPD, the patient is an FEV1 of 50% of predicted and she has also underlying comorbidities including CHF, chronic atrial fibrillation, aortic valve stenosis and the patient has moderate to severe ASO with a valve area of 0.8 cm, coronary artery disease with nonocclusive disease based on the previous cardiac catheterization,, and previous history of breast cancer, and the patient is post mastectomy. The patient upon follow-up was found to have a right upper lobe lesion that was initially measuring 1.8 x 1.6 cm in size in addition to some smaller pretracheal lymph nodes measuring 9 mm. Based on this, the patient was sent for a fine-needle aspiration that did not yield any diagnosis of malignancy. Upon subsequent follow-up, the patient underwent a follow-up CAT scan imaging that showed enlargement of the right upper lobe mass and the PET scan that was done on 07/30/2018 showed increasing mass in the right middle lobe area measuring 2.8 cm in size with a maximum SUV of 8 addition to smaller 7 mm precarinal lymph nodes. There are also numerous pulmonary nodules in the left mid and the left lower lung area measuring up to 8 mm in size and few scattered pulmonary nodules on the right largest being about 2 mm in size. Patient also developed a right-sided pleural effusion. I performed a diagnostic thoracentesis on this patient. A total of 900 mL of pleural fluid was aspirated. The fluid returned goods sorter to be malignant and the patient was referred to Dr. Corcoran for treatment and the patient is currently on immunotherapy. The patient came into the emergency department today because of worsening shortness of breath. An x-ray was done and it showed a estimated 30% right- sided hydropneumothorax with a large fluids component attributing the mediastinum and there was some limited shift to the right. Based on this, the patient was seen in emergency department and a chest tube was inserted. I inserted a chest tube and a total of 1500 of pleural fluid was aspirated immediately. There was a positive air leak. Subsequent chest x-ray showed interval improvement of a right-sided hydropneumothorax. There was still some stable pneumothorax in the right apex still seen. Tube was in a good location. The procedure without without any complications. The patient will be admitted to the hospital for now. Her underlying hemodynamics is stable for now. She is expressing some pain along the right chest area for which she is getting Dilaudid 0.5 mg every 6-8 hours. At that the patient was also having difficulties with swallowing. Previous EGD evaluation was negative. She underwent a recent modified barium swallow that showed silent penetration with coating of the vocal cords. After couple of swallows, there was a concern of aspiration based on that the patient had the procedure terminated. On 09/01/2018 patient seen in follow-up. Breathing easier today, less coughing. Right-sided chest tube is in place, no air leak noted, patient had a total of 1850 ML of serosanguineous pleural fluid since the insertion of the chest tube. Currently on 2 L per nasal cannula, with pulse ox of 96%, patient is afebrile, slightly tachycardic, heart rate of 102 BPM. States she is breathing much easier today. Today's chest x-ray has been reviewed by Dr. Mitchell, and shows improvement in the appearance of right-sided pneumothorax, basilar atelectasis. Patient is complaining of difficulty swallowing, and she underwent a recent modified barium swallow was not completed in view of silent penetration. We will aske GI service and speech therapy to reevaluate patient in regards to dysphagia. Patient is seen today 09/02/2018 in follow-up on the selective care unit. She is awake and alert in no acute distress. She is currently sitting up in a chair at the bedside. She does have a loose productive cough of thick sputum. Right-sided chest tube remains in place. We'll serosanguineous drainage. Positive leak with cough. X-ray continues to show right basilar pleural effusion with underlying atelectasis/infiltrate. No sizable pneumothorax. He is continued on DuoNeb inhalations. She is working well with the incentive spirometer. She is currently afebrile. Hemodynamically stable. Maintaining good O2 saturations in the 90s on 2 L/m per nasal cannula. Speech evaluation regarding her dysphagia revealed evidence of presbyesophagus. He has been seen and evaluated by GI services and she is encouraged to avoid meats and breads. A PEG tube was offered but the patient is declining at this time. No plans for EGD. On 09/03/2018, Alicia is doing better and the patient is less short of breath compared to yesterday. The chest x-ray from today shows no evidence of any pneumothorax and a chest tube remains in a good location. Nevertheless, there is still persistent opacification of the right lung base. The chest tube still in place and the total amount of output in the chest tube has been about 3 9 0 mL for yesterday. No evidence of any air leak. Based on the presence of persistent opacification of the right lung base him on a CAT scan of the chest was obtained that showed a small apical anterior right sided pneumothorax. There is a small right basilar pleural effusion. The right lower lobe is still atelectatic and there is a cutoff sign at the level of distal bronchus intermedius. Also, the right middle lobe mass was again seen. The exact cause for the right lower lobe atelectasis is not clear. I think this is to be further investigated by a bronchoscopy. The patient is not producing significant amount of sputum. Her swallowing was evaluated. A modified barium swallow was done which she passed without any evidence of aspiration. No significant chest pain. Chest tubes remains in a good location. On today's evaluation of 09/04/2018, the patient is looking well. The patient is no specific complaints. She is hemodynamically stable. Right-sided chest tube is still in place. The follow-up chest tubes removed from this morning showed that the right sided chest tube still in place. There is no evidence of any pneumothorax. There is improvement in aeration in the right lung base and the right basilar airspace disease. The patient is coughing up some liquid sputum which is noncolored. He is using incentive spirometer. The chest tube output for yesterday was in order of 280 mL and there is no evidence of any air leak and the pleural VAC. Patient is tolerating diet. No significant pain across the right chest area. No nausea. No vomiting. No diarrhea. No abdominal pain. Pain is under good control. She had been complaining of dysphagia and the workup was been essentially negative. On 09/05/2018 patient seen in follow-up on selective care unit. Right-sided chest tube remains in place, to wall suction, and today's chest x-ray shows stable findings, no evident pneumothorax, elevation of the right hemidiaphragm was again noted. Prominent interstitium noted. Slight worsening of the aeration of the right base noted. Patient is on room air, with pulse ox of 92% , she is afebrile, a bit tachycardic, heart rate between 104-110 BPM. Chest tube output is serous fluid, of 180 mL over last 24 hours. Incentive spirometry effort is 500-750 today. Lung sounds are diminished over right lower base. Patient has a congested cough, she's bringing up thick yellow sputum. She is complaining of constipation, she states she has not had a bowel movement in over a week. Abdomen is soft, she denies any abdominal pain. She is on oral lactulose and Metamucil. Her Opdivo remains on hold. The patient is seen again today 09/06/2018 in follow-up on the selective care unit. She is currently sitting up at the bedside. She is awake and alert in no acute distress. She is maintaining good O2 saturations in the 90s on room air. She's been afebrile. Slightly tachycardic. Blood pressure stable. Chest x-ray reveals postoperative changes. There is a right pleural effusion with associated atelectasis. Underlying lung mass in the right upper lobe is obscured. Chest tube remains in place. She is working with the incentive spirometer still only approximately 500 ML's. She remains on bronchodilators. Fentanyl and Dilaudid for pain control. The patient is seen again today 09/07/2018 in follow-up on the selective care unit. She is awake and alert in no acute distress. Currently sitting up at the bedside. She continues with a loose nonproductive cough. She is maintaining good O2 saturations in the 90s on room air. She's been afebrile. Hemodynamically stable. Chest x-ray reveals pleural parenchymal changes which are stable. Chest tube in place. She did receive 40 ML's of talc slurry instilled in the right pleural chest tube yesterday. Objective - Vital Signs Vital signs: Vital Signs Temp 97.5 F L 09/07/18 08:58 Pulse 104 H 09/07/18 08:58 Resp 20 09/07/18 08:58 BP 93/54 09/07/18 08:58 Pulse Ox 92 L 09/07/18 08:58 Intake & Output 09/06/18 09/07/18 09/07/18 18:59 06:59 18:59 Intake Total 720 720 480 Output Total 450 0 Balance 270 720 480 Weight 62.6 kg Intake: Oral 720 720 480 Output: Chest Tube Drainage 0 0 Chest Tube Right Mid- 0 0 Axillary Chest Urine 450 0 Other: Voiding Method Bedpan Bedpan # Voids 1 # Bowel Movements 1 - Exam General Appearance no respiratory distress, speech not interrupted by breaths, no dyspnea, no pallor, not cachectic, well nourished, appears well HEENT no pursed lip breathing, no jugular venous distention, no mucous membrane cyanosis, no perioral cyanosis, mallampati classification: class 1 Chest no barrel chest, no retractions, no sternocleidomastoid muscle contractions, no supraclavicular retractions, no intercostal retractions, the patient is postop mastectomy. Lung sounds are diminished over right base, Right -sided chest tube is in place Heart no right ventricular heave, no distant heart sounds, no s3 gallop, (normal ) jugular vein: jugular venous distention: by 0cm, Murmurs: Unspecified Location : Systolic: Grade 3 / IV (systolic ejection murmur G3/6) GI bowel sounds: Normal bowel sounds Extremities no cyanosis, no clubbing, no edema Neurologic no decreased mental status, no somnolence, no confusion Examination of the skin revealed no evidence of significant rashes, suspicious appearing nevi or other concerning lesions. - Labs CBC & Chem 7: 09/03/18 10:00 09/03/18 10:00 Assessment and Plan Assessment: Impression: 1 right-sided hydropneumothorax, post chest tube insertion and there is positive air leak with some residual pneumothorax on subsequent chest x-ray. Chest tube in place. Talc slurry he was injected 09/06/2018. Peripheral mid right lung mass. There is also multiple peripheral punctate nodularities within the left lung suspicious for metastatic disease. 2 adenocarcinoma of the lung, stage IV. The patient is currently on immunotherapy and she received her first session of Opdivo through Dr. Corcoran 3 COPD with a baseline FEV1 of 50% of predicted 4 malignant right-sided pleural effusion 5 aortic valve stenosis, nonsurgical case and the patient has a valve area of 0.8 cm 6 paroxysmal atrial fibrillation currently on anticoagulation with Xarelto 7 worsening shortness of breath secondary to above. The patient's increased dyspnea with essentially due to development of a right-sided pleural effusion and pneumothorax/hydropneumothorax 8 nonocclusive coronary artery disease 9 hypothyroidism 10 moderate to severe aortic stenosis 11 hyperlipidemia 12 trigeminal neuralgia 13 chronic ALLERGIC rhinitis 14 remote history of breast cancer with a previous right mastectomy Plan: The patient was seen and evaluated by Dr. Plummer. Chest x-ray was reviewed. Chest tube remains in place. CT services performed talc pleurodesis on 2017. She is again encouraged regarding the increased use of the incentive spirometer. We'll increase her activity as tolerated. Continue bronchodilators. We'll continue to follow. I, the cosigning physician, performed a history & physical examination of the patient. Lungs sounds few scattered rhonchi more so on the right lung. Maintaining good O2 saturations in the 90s on room air. I discussed the assessment and plan of care with my nurse practitioner, Rehana Sanchez. I attest to the above note as dictated by her.
[2018-09-07 11:02] LABS: Basophils % (A) 0 %; Eosinophils # (A) 0.1 k/uL (0-0.7); Eosinophils % (A) 1 %; HCT 39.1 % (34.0-46.0); HGB 13.1 gm/dL (11.4-16.0); Lymphocytes # (A) 0.8 k/uL (1.0-4.8); Lymphocytes % (A) 8 %; MCH 31.3 pg (25.0-35.0); MCHC 33.5 g/dL (31.0-37.0); MCV 93.2 fL (80.0-100.0); Mean Platelet Volume 7.1; Monocytes % (A) 10 %; Neutrophils % (A) 79 %; Platelet Count 357 k/uL (150-450); RDW 13.3 % (11.5-15.5)
[2018-09-07 11:14] LABS: ALT 29 U/L (9-52); AST 27 U/L (14-36); Alkaline Phosphatase 105 U/L (38-126); Anion Gap 7 mmol/L; Blood Urea Nitrogen 14 mg/dL (7-17); Calcium 8.8 mg/dL (8.4-10.2); Carbon Dioxide 32 mmol/L (22-30); Chloride 98 mmol/L (98-107); Glucose 131 mg/dL (74-99); Potassium 4.4 mmol/L (3.5-5.1); Sodium 137 mmol/L (137-145); Total Bilirubin 0.3 mg/dL (0.2-1.3); Total Protein 5.7 g/dL (6.3-8.2)
[2018-09-07] MEDS: VIT A,C & E-LUTEIN-MINERALS 1 EACH TAB PO SCH ×2 (12:49→21:35)
--- NOTE | 2018-09-07 15:40 | P.PN ---
Subjective Progress Note Date: 09/07/18 Principal diagnosis: Malignant right pleural effusion, adenocarcinoma of the lung. Previous medical history of COPD, previous non-small cell lung cancer and chemoradiation, CHF, chronic atrial fibrillation several total for anticoagulation, aortic valve stenosis, coronary artery disease with history of cardiac catheterization, breast cancer status post right mastectomy as well as left lumpectomy. Status post day #1 talc pleurodesis, right side. Patient is laying in bed complaining of nausea. Denies any emesis. She denies any complaints of pain although she reports that her shortness of breath is the same. She is achieving 500 mL on her incentive spirometry. Right pleural chest tube remains in place draining thin scant serosanguineous drainage. Objective - Vital Signs Vital signs: Vital Signs Temp 97.5 F L 09/07/18 08:58 Pulse 104 H 09/07/18 08:58 Resp 20 09/07/18 08:58 BP 93/54 09/07/18 08:58 Pulse Ox 92 L 09/07/18 08:58 Intake & Output 09/06/18 09/07/18 09/07/18 18:59 06:59 18:59 Intake Total 720 720 480 Output Total 450 0 Balance 270 720 480 Weight 62.6 kg Intake: Oral 720 720 480 Output: Chest Tube Drainage 0 0 Chest Tube Right Mid- 0 0 Axillary Chest Urine 450 0 Other: Voiding Method Bedpan Bedpan # Voids 1 # Bowel Movements 1 - Constitutional General appearance: Present: cooperative, no acute distress - Respiratory Details: Lungs sounds are essentially clear to her bilateral upper lobes, diminished bilateral bases right greater than her left. Respirations are symmetrical and nonlabored. Oxygen saturation are 94% on room air. She is achieving 500 mL on her incentive spirometry. Right pleural chest tube remains in place to low continuous wall suction -20 cm H2O. No air leak is present. Draining scant thin serosanguineous drainage, 10 mL output in the last 24 hours. - Cardiovascular Details: Regular rhythm and rate. S1 and S2 hasn't, negative for S3, gallop or murmur. Remote telemetry showing sinus tachycardia heart rate 104. No edema present. Knee-high sequential compression devices in place to bilateral lower extremities. - Gastrointestinal Gastrointestinal Comment(s): Abdomen is soft, nontender and nondistended. Hypoactive bowel sounds all 4 abdominal quadrants. Nauseous, no guarding or rigidity. No organomegaly. - Genitourinary Genitourinary Comment(s): Voiding clear yellow urine. - Integumentary Integumentary Comment(s): Skin is warm and dry. No clubbing or cyanosis present. No rash or abnormal pigmentation present. - Neurologic Neurologic: Present: CNII-XII intact - Musculoskeletal Musculoskeletal: Present: gait normal, strength equal bilaterally - Psychiatric Psychiatric: Present: A&O x's 3, appropriate affect, intact judgment & insight - Allied health notes Allied health notes reviewed: nursing - Labs CBC & Chem 7: 09/07/18 10:38 09/07/18 10:38 - Imaging and Cardiology Chest x-ray: report reviewed, image reviewed Assessment and Plan (1) Aortic valve stenosis Current Visit: Yes Status: Chronic Code(s): I35.0 - NONRHEUMATIC AORTIC ( VALVE) STENOSIS SNOMED Code(s): 89480466 (2) COPD (chronic obstructive pulmonary disease) Current Visit: Yes Status: Chronic Code(s): J44.9 - CHRONIC OBSTRUCTIVE PULMONARY DISEASE, UNSPECIFIED SNOMED Code(s): 13270536 (3) Chronic anticoagulation Current Visit: Yes Status: Chronic Code(s): Z79.01 - MCFP (CURRENT) USE OF ANTICOAGULANTS SNOMED Code(s): 805532735 (4) Chronic atrial fibrillation Current Visit: Yes Status: Chronic Code(s): I48.2 - CHRONIC ATRIAL FIBRILLATION SNOMED Code(s): 410739936 (5) Congestive heart failure Current Visit: Yes Status: Chronic Code(s): I50.9 - HEART FAILURE, UNSPECIFIED SNOMED Code(s): 75101711 (6) Coronary artery disease Current Visit: Yes Status: Chronic Code(s): I25.10 - ATHSCL HEART DISEASE OF [place] CORONARY ARTERY W/O ANG PCTRS SNOMED Code(s): 66792179 (7) Lung cancer Current Visit: Yes Status: Chronic Code(s): C34.90 - MALIGNANT NEOPLASM OF UNSP PART OF UNSP BRONCHUS OR LUNG SNOMED Code(s): 685213067 Plan: 1. Continue right pleuralchest tube to continuous wall suction. Monitor output. 2. bronchoscopy planned by pulmonary medicine for tomorrow, pulmonary medicine requesting chest tube stayed in place until bronchoscopy is completed. 3. Encourage incentive spirometry use 10 times every hour while awake. 4. Medical management per primary, pulmonology, and oncology recommendations. 5. GI/DVT prophylaxis. 6. More recommendations to follow based on patient's clinical course. Time with Patient: Greater than 30
[2018-09-07] MEDS: RIVAROXABAN 20 MG TAB PO SCH (17:32)
--- NOTE | 2018-09-07 19:49 | P.PN ---
Subjective Progress Note Date: 09/07/18 Principal diagnosis: Malignant pleural effusion sitting up in chair, she still complains of the cough which is the hardest she states. She is status POst Talc PLeurodesis on Right side Objective - Vital Signs Vital signs: Vital Signs Temp 97.8 F 09/07/18 16:00 Pulse 109 H 09/07/18 16:00 Resp 20 09/07/18 16:00 BP 94/52 09/07/18 16:00 Pulse Ox 91 L 09/07/18 16:00 Intake & Output 09/07/18 09/07/18 09/08/18 06:59 18:59 06:59 Intake Total 720 480 Output Total 0 Balance 720 480 Weight 62.6 kg Intake: Oral 720 480 Output: Chest Tube Drainage 0 Chest Tube Right Mid- 0 Axillary Chest Urine 0 Other: Voiding Method Bedpan Bedpan # Voids 1 - Exam Constitutional General appearance: cooperative, mild distress, thin - EENT Eyes: EOMI, PERRLA, dentition normal ENT: hard of hearing, NA/AT, other, thrush - Neck no adenopathy cervical Neck: normal ROM - Respiratory Chest tube insertion Respiratory: bilateral: diminished, wheezing - Cardiovascular Rhythm: irregularly irregular - Gastrointestinal non tender General gastrointestinal: normal bowel sounds, soft - Integumentary Integumentary: pale - Neurologic No focal defects Neurologic: CNII-XII intact - Musculoskeletal Musculoskeletal: generalized weakness, strength equal bilaterally - Psychiatric Psychiatric: A&O x's 3, appropriate affect, intact judgment & insight - Labs CBC & Chem 7: 09/07/18 10:38 09/07/18 10:38 Labs: Abnormal Lab Results - Last 24 Hours (Table) 09/07/18 09/07/18 Range/Units 10:38 10:38 Neutrophils # 8.0 H (1.3-7.7) k/uL Lymphocytes # 0.8 L (1.0-4.8) k/uL Carbon Dioxide 32 H (22-30) mmol/L Glucose 131 H (74-99) mg/dL Total Protein 5.7 L (6.3-8.2) g/dL Albumin 3.0 L (3.5-5.0) g/dL Assessment and Plan (1) Dysphagia Narrative/Plan: - GI is following - Speech pathology is following as outpatient - Overall improving as she states she is better modifying her chewing and food choices Current Visit: Yes Status: Acute Code(s): R13.10 - DYSPHAGIA, UNSPECIFIED SNOMED Code(s): 65186005 (2) Hydropneumothorax Narrative/Plan: - Status POst Day one Talc Pleurodesis on Right Current Visit: Yes Status: Acute Code(s): J94.8 - OTHER SPECIFIED PLEURAL CONDITIONS SNOMED Code(s): 42797892 (3) Lung cancer Current Visit: Yes Status: Chronic Code(s): C34.90 - MALIGNANT NEOPLASM OF UNSP PART OF UNSP BRONCHUS OR LUNG SNOMED Code(s): 829579126 (4) Pain, neoplasm-related Current Visit: Yes Status: Acute Code(s): G89.3 - NEOPLASM RELATED PAIN ( ACUTE) (CHRONIC) SNOMED Code(s): 403128048 Plan: - Hold Opdivo until acute situation improved/resolved - GI and Pulmonary Following - Status POst Talc Pleurodesis - Check CBC and CMP today since on recent treatment.
[2018-09-07] MEDS: MELATONIN 3 MG TABLET PO PRN (21:34)
[2018-09-07] MEDS: PRAVASTATIN SODIUM 80 MG TAB PO SCH (21:34)
--- NOTE | 2018-09-07 22:59 | PN ---
PROGRESS NOTE DATE OF SERVICE: 09/07/2018 PRESENTING COMPLAINT: Short of breath. INTERVAL HISTORY: This patient has metastatic lung cancer, presents with large right-sided hydropneumothorax and had a chest tube placed. My note is incorrect from yesterday saying that the chest tube was taken out which is still in present. Had pleurodesis done yesterday. The patient still remains short of breath, sometimes. Has pain if she takes a deep breath. Tolerating some diet. Lying in bed. REVIEW OF SYSTEMS: Done for constitutional, cardiovascular, GI, pulmonary and relevant findings as above. CURRENT MEDICATIONS: Reviewed. PHYSICAL EXAMINATION: VITAL SIGNS: Temperature 97.8, pulse 84, respiratory rate 16, blood pressure 94/52, pulse ox 91 percent on room air. GENERAL APPEARANCE: Lying in bed somewhat uncomfortable. EYES: Pupils equal. Conjunctivae pale. HEENT: External appearance of nose and ears normal. Oral cavity normal. NECK: JVD not raised. Mass not palpable. RESPIRATORY: Effort increased. LUNGS: Decreased breath sounds. CARDIOVASCULAR: 1st and 2nd sounds normal. No edema. ABDOMEN: Soft, nontender. Liver and spleen not palpable. PSYCHIATRY: Alert and oriented x3. Mood and affect anxious-appearing. INVESTIGATIONS: White count 10, hemoglobin 13.1, potassium 4.4. BUN and creatinine is normal. ASSESSMENT: 1. Large right-sided pneumothorax status post right-sided chest tube that is still present. 2. Status post right-sided pleurodesis yesterday. 3. Stage IV metastatic adenocarcinoma of the lung. On immunotherapy. Opdivo currently being held. 4. Paroxysmal atrial fibrillation currently in sinus rhythm on Xarelto. 5. Chronic obstructive pulmonary disease in an ex-smoker. 6. Gastroesophageal reflux disease. 7. Hyperlipidemia. 8. Essential hypertension. 9. Primary osteoarthritis. 10.Macular degeneration. 11.Severe aortic stenosis with valve area of 0.8 cm2 nonrheumatic. 12.Trigeminal neuralgia. 13.Coronary artery disease, nonocclusive. 14.Mild protein-calorie malnutrition from decreased oral intake. 15.Narcotic induced constipation. Did respond well to diuretics. PLAN: Discussed with Dr. Plummer. He will proceed to do a bronchoscopy tomorrow. In the meantime, current medication and treatment plan remains. Prognosis remains guarded. MMODL / IJN: [id number] /
[2018-09-07] MEDS: PROMETHAZINE 25 MG TAB PO PRN (23:17)
[2018-09-08] MEDS: HYDROmorphone 1 MG/ML 1 ML SYRINGE IVP PRN ×4 (04:51→22:48)
[2018-09-08] MEDS: ONDANSETRON 4 MG/2 ML VIAL IVP PRN ×2 (04:56→22:48)
[2018-09-08] MEDS: PANTOPRAZOLE 40 MG TABLET PO SCH (06:42)
--- NOTE | 2018-09-08 08:21 | XR ---
EXAMINATION TYPE: XR chest 1V portable DATE OF EXAM: 09/08/2018 COMPARISON: Prior chest x-ray 09/07/2018 HISTORY: Confusion, chest tube TECHNIQUE: Single frontal view of the chest is obtained. FINDINGS: Findings are similar to prior exam. Right-sided chest tube remains in place. Opacity at th e lower aspect of the right chest, apical catheter are stable. Heart is obscured. Postop change noted to the left chest. No evident pneumothorax. IMPRESSION: Stable postoperative findings. There is likely right pleural effusion and associated ate lectasis, correlate to exclude pneumonia.
[2018-09-08] MEDS: IPRATROPIUM-ALBUTEROL 3 ML NEB INHALATION SCH ×3 (08:24→20:42)
--- NOTE | 2018-09-08 08:54 | P.PN ---
Subjective Progress Note Date: 09/08/18 Principal diagnosis: Malignant right pleural effusion, adenocarcinoma of the lung. Previous medical history of COPD, previous non-small cell lung cancer and chemoradiation, CHF, chronic atrial fibrillation several total for anticoagulation, aortic valve stenosis, coronary artery disease with history of cardiac catheterization, breast cancer status post right mastectomy as well as left lumpectomy. POD #2 talc installation to right pleural chest tube. The patient is currently laying in bed in no acute distress. Does complain of nausea and continued shortness of breath. She does not complain of any pain. She is working diligently on her incentive spirometer but is only able to achieve approximately 500-750 mL. Chest tube output continues to decrease. Objective - Vital Signs Vital signs: Vital Signs Temp 97 F L 09/08/18 04:00 Pulse 90 09/08/18 08:39 Resp 18 09/08/18 04:00 BP 106/67 09/08/18 04:00 Pulse Ox 93 L 09/08/18 04:00 Intake & Output 09/07/18 09/08/18 09/08/18 18:59 06:59 18:59 Intake Total 480 Output Total 30 Balance 480 -30 Weight 62.8 kg Intake: Oral 480 Output: Chest Tube Drainage 30 Chest Tube Right Mid- 30 Axillary Chest Other: Voiding Method Bedpan # Voids 1 - Constitutional General appearance: Present: cooperative, no acute distress - Respiratory Details: Lungs sounds are diminished bilaterally, right greater than left. Respirations even, nonlabored. Currently on room air with oxygen saturation 93%. Only able to achieve 500-750 mL on her incentive spirometry. Right pleural chest tube to continuous wall suction, 20 mL serous output overnight, 50 mL serous drainage in the last 24 hours, no air leak present. - Cardiovascular Details: S1, S2 present. Regular but tachycardic rate and rhythm, sinus tach on telemetry. Palpable peripheral pulses bilaterally. No edema present. No calf pain or tenderness noted. - Gastrointestinal Gastrointestinal Comment(s): Abdomen soft, nontender, nondistended. Active bowel sounds present. Patient tolerating minimal diet, very nauseous. - Genitourinary Genitourinary Comment(s): Continues to void. - Neurologic Neurologic: Present: CNII-XII intact - Musculoskeletal Musculoskeletal: Present: gait normal, strength equal bilaterally - Psychiatric Psychiatric: Present: A&O x's 3, appropriate affect, intact judgment & insight - Allied health notes Allied health notes reviewed: nursing - Labs CBC & Chem 7: 09/07/18 10:38 09/07/18 10:38 Labs: Abnormal Lab Results - Last 24 Hours (Table) 09/07/18 09/07/18 Range/Units 10:38 10:38 Neutrophils # 8.0 H (1.3-7.7) k/uL Lymphocytes # 0.8 L (1.0-4.8) k/uL Carbon Dioxide 32 H (22-30) mmol/L Glucose 131 H (74-99) mg/dL Total Protein 5.7 L (6.3-8.2) g/dL Albumin 3.0 L (3.5-5.0) g/dL - Imaging and Cardiology Chest x-ray: report reviewed, image reviewed Assessment and Plan (1) Chronic atrial fibrillation Current Visit: Yes Status: Chronic Code(s): I48.2 - CHRONIC ATRIAL FIBRILLATION SNOMED Code(s): 758539853 (2) Chronic anticoagulation Current Visit: Yes Status: Chronic Code(s): Z79.01 - INSIDE CHANNEL ACCOUNT MANAGER (CURRENT) USE OF ANTICOAGULANTS SNOMED Code(s): 081124090 (3) Congestive heart failure Current Visit: Yes Status: Chronic Code(s): I50.9 - HEART FAILURE, UNSPECIFIED SNOMED Code(s): 69517081 (4) Aortic valve stenosis Current Visit: Yes Status: Chronic Code(s): I35.0 - NONRHEUMATIC AORTIC ( VALVE) STENOSIS SNOMED Code(s): 05576629 (5) Coronary artery disease Current Visit: Yes Status: Chronic Code(s): I25.10 - ATHSCL HEART DISEASE OF [place] CORONARY ARTERY W/O ANG PCTRS SNOMED Code(s): 02441082 (6) Hydropneumothorax Current Visit: Yes Status: Acute Code(s): J94.8 - OTHER SPECIFIED PLEURAL CONDITIONS SNOMED Code(s): 96471913 (7) Lung cancer Current Visit: Yes Status: Chronic Code(s): C34.90 - MALIGNANT NEOPLASM OF UNSP PART OF UNSP BRONCHUS OR LUNG SNOMED Code(s): 416185927 (8) COPD (chronic obstructive pulmonary disease) Current Visit: Yes Status: Chronic Code(s): J44.9 - CHRONIC OBSTRUCTIVE PULMONARY DISEASE, UNSPECIFIED SNOMED Code(s): 55034692 Plan: 1. Continue chest tube to continuous wall suctionuntil after bronchoscopy. Monitor output. 2. Plan for bronchoscopy today with Dr. Plummer. 3. Encourage incentive spirometry use 10 times every hour while awake. 4. Medical management per primary, pulmonology, oncology. 5. GI/DVT prophylaxis. 6. More recommendations to follow. Time with Patient: Greater than 30
[2018-09-08] MEDS: CLOTRIMAZOLE TROCHE 10 MG TROCHE MUCOUS MEM SCH ×4 (09:19→22:28)
[2018-09-08] MEDS: PSYLLIUM HUSK 100% 6 GM PACKET PO SCH ×2 (11:15→22:27)
[2018-09-08] MEDS: CALCIUM CARBONATE 500 MG CHEWABLE PO SCH (11:15)
[2018-09-08] MEDS: VIT A,C & E-LUTEIN-MINERALS 1 EACH TAB PO SCH ×2 (11:15→22:27)
[2018-09-08] MEDS: SENNOSIDES-DOCUSATE SODIUM 1 EACH TAB PO SCH ×2 (11:15→22:27)
[2018-09-08] MEDS: LACTULOSE 20 GM/30 ML CUP PO SCH (11:15)
[2018-09-08] MEDS: NYSTATIN 100,000 UNIT/ML SUSP 500,000 UNIT/5 ML CUP PO SCH ×3 (11:15→22:28)
--- NOTE | 2018-09-08 12:34 | P.PN ---
Subjective Progress Note Date: 09/08/18 Principal diagnosis: Right-sided hydropneumothorax, post chest tube insertion This is an 83 -year-old female patient who has currently metastatic adenocarcinoma of the lung. The patient is known to have COPD and previous history of non-small cell lung cancer. The patient's original diagnosis of lung cancer was established in 2011 through an anterior mediastinal endoscopy. Following that the patient underwent chemoradiation therapy. She responded very well and she remained in remission for many years. As for COPD, the patient is an FEV1 of 50% of predicted and she has also underlying comorbidities including CHF, chronic atrial fibrillation, aortic valve stenosis and the patient has moderate to severe ASO with a valve area of 0.8 cm, coronary artery disease with nonocclusive disease based on the previous cardiac catheterization,, and previous history of breast cancer, and the patient is post mastectomy. The patient upon follow-up was found to have a right upper lobe lesion that was initially measuring 1.8 x 1.6 cm in size in addition to some smaller pretracheal lymph nodes measuring 9 mm. Based on this, the patient was sent for a fine-needle aspiration that did not yield any diagnosis of malignancy. Upon subsequent follow-up, the patient underwent a follow-up CAT scan imaging that showed enlargement of the right upper lobe mass and the PET scan that was done on 07/30/2018 showed increasing mass in the right middle lobe area measuring 2.8 cm in size with a maximum SUV of 8 addition to smaller 7 mm precarinal lymph nodes. There are also numerous pulmonary nodules in the left mid and the left lower lung area measuring up to 8 mm in size and few scattered pulmonary nodules on the right largest being about 2 mm in size. Patient also developed a right-sided pleural effusion. I performed a diagnostic thoracentesis on this patient. A total of 900 mL of pleural fluid was aspirated. The fluid barrel turner to be malignant and the patient was referred to Dr. Corcoran for treatment and the patient is currently on immunotherapy. The patient came into the emergency department today because of worsening shortness of breath. An x-ray was done and it showed a estimated 30% right- sided hydropneumothorax with a large fluids component attributing the mediastinum and there was some limited shift to the right. Based on this, the patient was seen in emergency department and a chest tube was inserted. I inserted a chest tube and a total of 1500 of pleural fluid was aspirated immediately. There was a positive air leak. Subsequent chest x-ray showed interval improvement of a right-sided hydropneumothorax. There was still some stable pneumothorax in the right apex still seen. Tube was in a good location. The procedure without without any complications. The patient will be admitted to the hospital for now. Her underlying hemodynamics is stable for now. She is expressing some pain along the right chest area for which she is getting Dilaudid 0.5 mg every 6-8 hours. At that the patient was also having difficulties with swallowing. Previous EGD evaluation was negative. She underwent a recent modified barium swallow that showed silent penetration with coating of the vocal cords. After couple of swallows, there was a concern of aspiration based on that the patient had the procedure terminated. On 09/01/2018 patient seen in follow-up. Breathing easier today, less coughing. Right-sided chest tube is in place, no air leak noted, patient had a total of 1850 ML of serosanguineous pleural fluid since the insertion of the chest tube. Currently on 2 L per nasal cannula, with pulse ox of 96%, patient is afebrile, slightly tachycardic, heart rate of 102 BPM. States she is breathing much easier today. Today's chest x-ray has been reviewed by Dr. Mitchell, and shows improvement in the appearance of right-sided pneumothorax, basilar atelectasis. Patient is complaining of difficulty swallowing, and she underwent a recent modified barium swallow was not completed in view of silent penetration. We will aske GI service and speech therapy to reevaluate patient in regards to dysphagia. On 09/05/2018 patient seen in follow-up on selective care unit. Right-sided chest tube remains in place, to wall suction, and today's chest x-ray shows stable findings, no evident pneumothorax, elevation of the right hemidiaphragm was again noted. Prominent interstitium noted. Slight worsening of the aeration of the right base noted. Patient is on room air, with pulse ox of 92% , she is afebrile, a bit tachycardic, heart rate between 104-110 BPM. Chest tube output is serous fluid, of 180 mL over last 24 hours. Incentive spirometry effort is 500-750 today. Lung sounds are diminished over right lower base. Patient has a congested cough, she's bringing up thick yellow sputum. She is complaining of constipation, she states she has not had a bowel movement in over a week. Abdomen is soft, she denies any abdominal pain. She is on oral lactulose and Metamucil. Her Opdivo remains on hold. On 09/08/2018 patient seen in follow-up on selective care unit. Right sided chest tube remains in place, she is status post total pleurodesis, postop day 2. She is resting comfortably in bed, in no acute distress, she has frequent productive cough, with production of clear sputum. She has some moderate amount of chest wall discomfort at the chest wall insertion sites. She is working on her incentive spirometry, she is able to achieve 500-759 today. Chest tube output is decreasing, there has been about 30 ML of pleural fluid in the last 24 hours. Today's chest x-ray has been reviewed, and shows stable findings, with the right-sided chest tube in place, opacity at the lower aspect of the right chest, which is likely to represent pleural effusion and associated atelectasis. Labs have been reviewed, no leukocytosis, Giselle BC is 10.0, hemoglobin is 13.1, electrolytes are within normal limits except for CO2 which is at 32, renal profile is normal. No fever no chills. Patient is scheduled for bronchoscopy today by Dr. Hughes. Objective - Vital Signs Vital signs: Vital Signs Temp 98.1 F 09/08/18 08:00 Pulse 99 09/08/18 11:26 Resp 17 09/08/18 11:26 BP 101/60 09/08/18 11:26 Pulse Ox 91 L 09/08/18 11:26 Intake & Output 09/07/18 09/08/18 09/08/18 18:59 06:59 18:59 Intake Total 480 Output Total 30 50 Balance 480 -30 -50 Weight 62.8 kg Intake: Oral 480 Output: Chest Tube Drainage 30 50 Chest Tube Right Mid- 30 50 Axillary Chest Other: Voiding Method Bedpan Bedpan # Voids 1 - Exam General Appearance no diaphoresis, no respiratory distress, speech not interrupted by breaths, no dyspnea, no pallor, not cachectic, well nourished, appears well HEENT no pursed lip breathing, no jugular venous distention, no mucous membrane cyanosis, no perioral cyanosis, mallampati classification: class 1 Chest no barrel chest, no retractions, no sternocleidomastoid muscle contractions, no supraclavicular retractions, no intercostal retractions, no prolonged expiratory wheezing, no decreased air movement, no rhonchi, no hyperinflation, decreased air movement (diminished breath sounds in the right lung basealong with dullness to percussion his relationship with pleural effusion), the patient is postop mastectomy. Lung sounds are diminished over right base, overall diminished breath sounds bilaterally., More so on the right base. Right-sided chest tube is in place, with a total of 30 of serous pleural fluid in the last 24 hours Heart no right ventricular heave, no distant heart sounds, no s3 gallop, (normal ) jugular vein: jugular venous distention: by 0cm, Murmurs: Unspecified Location : Systolic: Grade 3 / IV (systolic ejection murmur G3/6) GI bowel sounds: hyperactive (borborygmi), bowel sounds: diminished or absent Extremities no cyanosis, no clubbing, no edema Neurologic no decreased mental status, no somnolence, no confusion Examination of the skin revealed no evidence of significant rashes, suspicious appearing nevi or other concerning lesions. - Labs CBC & Chem 7: 09/07/18 10:38 09/07/18 10:38 Assessment and Plan Plan: 1.right-sided hydropneumothorax, post chest tube insertion and removal of approximately 2 L of pleural fluid from the right hemithorax. Over the past 24 hours, the output from the right-sided chest tube has diminished. The subsequent CAT scan of the chest showed right lower lobe consolidation/ atelectasis and there was a cut off sign at the level of the bronchus intermedius. I was planning to do a bronchoscopy to evaluate the patient's bronchus intermedius and see if there is any endobronchial mucus plugging airway and preventing full expansion of the right lung. Nevertheless, on today' s chest x-ray, there is improvement in aeration of the right lung base and an very much happy with the response. She is not fully expanded however. She may need a bronchoscopy at a later stage of the findings remain unchanged. Meanwhile, keep the chest tube in place. Once the lung is fully up, the patient may need and benefit from pleurodesis. For now, she will continue using incentive spirometer. On 09/05/2018 repeat chest x-ray was obtained, and showed stable findings, with the right-sided chest tube in place, the output is decreasing, patient is on room air, however the chest x-ray still shows volume loss in the right hemithorax. On 09/08/2018 be chest x-ray showed persistent right lower lobe opacity likely related to right pleural effusion, and adjacent atelectasis. Patient is status post total pleurodesis, postop day 2, and today she is scheduled for bronchoscopy with BAL for investigation of the cause preventing the full reexpansion of the right lung. Anticipate endobronchial tumor findings, it is unlikely this is due to to endobronchial mucus plugging, although it remains a possibility. 2 adenocarcinoma of the lung, stage IV. The patient is currently on immunotherapy and she received her first session of immunotherapy through Dr. Velez today. 3 COPD with a baseline FEV1 of 50% of predicted 4 malignant right-sided pleural effusion 5 aortic valve stenosis, nonsurgical case and the patient has a valve area of 0.8 cm 6 paroxysmal atrial fibrillation currently on anticoagulation with Xarelto 7 worsening shortness of breath secondary to above. The patient's increased dyspnea with essentially due to development of a right-sided pleural effusion and pneumothorax/hydropneumothorax 8 nonocclusive coronary artery disease 9 hypothyroidism 10, Dr. rivero 11 hyperlipidemia 12 trigeminal neuralgia 13 chronic ALLERGIC rhinitis 14 remote history of breast cancer with a previous right mastectomy Plan: We'll proceed with bronchoscopy with BAL today, for investigation the right bronchus intermedius. Patient is status post total pleurodesis, and the chest x -ray shows persistent volume loss in the right lung. Continue all other medical treatments for now, continue to follow I performed a history & physical examination of the patient and discussed their management with my nurse practitioner, Leela Ch. I reviewed the nurse practitioner's note and agree with the documented findings and plan of care. Lung sounds are positive for diminished breath sounds over right lower. The findings and the impression was discussed with the patient. I attest to the documentation by the nurse practitioner. Time with Patient: Less than 30
[2018-09-08] MEDS ORDERED: KETAMINE 10 MG/ML 20 ML VIAL ONE (12:55)
[2018-09-08] MEDS ORDERED: PROPOFOL 10 MG/ML 20 ML VIAL IV ONE (12:55)
[2018-09-08] MEDS ORDERED: IV FLUID CONTINUATION 500 ML IV ONE (13:00)
[2018-09-08] MEDS ORDERED: LIDOCAINE 2% INJ 20 MG/ML INTRATRACH ONE (13:06)
[2018-09-08] MEDS: CYANOCOBALAMIN 500 MCG TAB PO SCH (13:40)
[2018-09-08] MEDS: MAGNESIUM OXIDE 400 MG TAB PO SCH (14:08)
[2018-09-08] MEDS: METOPROLOL TARTRATE 25 MG TAB PO SCH (14:08)
[2018-09-08] MEDS: PROMETHAZINE 25 MG TAB PO PRN ×2 (14:08→22:48)
[2018-09-08] MEDS: FUROSEMIDE 20 MG TAB PO SCH (14:09)
[2018-09-08] MEDS: LISINOPRIL 5 MG TAB PO SCH (14:09)
[2018-09-08] MEDS: POTASSIUM CHLORIDE ER 10 MEQ TAB.ER.PRT PO SCH ×2 (15:56→22:27)
[2018-09-08] MEDS: RIVAROXABAN 20 MG TAB PO SCH (17:19)
--- NOTE | 2018-09-08 17:23 | P.PN ---
Subjective Progress Note Date: 09/08/18 Principal diagnosis: Malignant pleural effusion Still recovering from pleurodesis. Objective - Vital Signs Vital signs: Vital Signs Temp 98.5 F 09/08/18 15:58 Pulse 108 H 09/08/18 15:58 Resp 18 09/08/18 15:58 BP 116/71 09/08/18 15:58 Pulse Ox 93 L 09/08/18 15:58 Intake & Output 09/07/18 09/08/18 09/08/18 18:59 06:59 18:59 Intake Total 480 50 Output Total 30 50 Balance 480 -30 0 Weight 62.8 kg Intake: IV 50 Oral 480 Output: Chest Tube Drainage 30 50 Chest Tube Right Mid- 30 50 Axillary Chest Other: Voiding Method Bedpan Bedpan # Voids 1 1 - Exam Constitutional General appearance: cooperative, mild distress, thin - EENT Eyes: EOMI, PERRLA, dentition normal ENT: hard of hearing, NA/AT, other, thrush - Neck no adenopathy cervical Neck: normal ROM - Respiratory Chest tube insertion Respiratory: bilateral: diminished, wheezing - Cardiovascular Rhythm: irregularly irregular - Gastrointestinal non tender General gastrointestinal: normal bowel sounds, soft - Integumentary Integumentary: pale - Neurologic No focal defects Neurologic: CNII-XII intact - Musculoskeletal Musculoskeletal: generalized weakness, strength equal bilaterally - Psychiatric Psychiatric: A&O x's 3, appropriate affect, intact judgment & insight - Labs CBC & Chem 7: 09/07/18 10:38 09/07/18 10:38 Assessment and Plan (1) Dysphagia Narrative/Plan: - GI is following - Speech pathology is following as outpatient - Overall improving as she states she is better modifying her chewing and food choices Current Visit: Yes Status: Acute Code(s): R13.10 - DYSPHAGIA, UNSPECIFIED SNOMED Code(s): 45135658 (2) Hydropneumothorax Narrative/Plan: - Status POst Day one Talc Pleurodesis on Right Current Visit: Yes Status: Acute Code(s): J94.8 - OTHER SPECIFIED PLEURAL CONDITIONS SNOMED Code(s): 00417517 (3) Lung cancer Narrative/Plan: - Status post treatment one of opdivo, on hold until acute situation resolves Current Visit: Yes Status: Chronic Code(s): C34.90 - MALIGNANT NEOPLASM OF UNSP PART OF UNSP BRONCHUS OR LUNG SNOMED Code(s): 953958766 (4) Pain, neoplasm-related Narrative/Plan: - Fentanyl increased from 25mcg to 50mcg and prn breakthrough - COntinue with bowel regimen Current Visit: Yes Status: Acute Code(s): G89.3 - NEOPLASM RELATED PAIN ( ACUTE) (CHRONIC) SNOMED Code(s): 330042086 Plan: - Hold Opdivo until acute situation improved/resolved - GI and Pulmonary Following - Status POst Talc Pleurodesis - Reviewed and stable CBC and CMP - Follow-up after discharge
--- NOTE | 2018-09-08 20:48 | OP ---
OPERATIVE REPORT PROCEDURE: Bronchoscopy and washings of the right middle lobe bronchus intermedius, right mainstem bronchus and right middle lobe bronchus. PREOPERATIVE DIAGNOSIS: Right lung collapse. POSTOPERATIVE DIAGNOSIS: Bronchogenic carcinoma involving right mainstem bronchus, bronchus intermedius, and right middle lobe with subtotal occlusion of the right middle lobe, right lower lobe and right upper lobe. PROCEDURE DESCRIPTION: The patient was prepared according to the protocol. Oxygen was applied via nasal cannula. She was placed in supine position. We monitored her oxygen saturation continuously. Blood pressure was intermittently monitored. Cardiac rhythm was continuously monitored. After adequate IV conscious sedation, a bite block was placed, and the bronchoscope was advanced through the bite block to the area of the vocal cords, which were noted to be patent. Lidocaine was applied over the vocal cords, and the bronchoscope was advanced further down to the trachea. Thorough examination was done on the right side and left side. No significant findings on the left side, but there was definitely evidence of tumor involvement of the right mainstem bronchus, right middle lobe, right bronchus intermedius, and there was almost subtotal occlusion of the right middle lobe mostly, less occlusion of the right lower lobe bronchus, and also some subtotal occlusion of the right upper lobe. Washings were done. No biopsies were done because the patient was on Xarelto, and mucosa was noted to be extremely friable. Washings were sent for cytology. Procedure was well tolerated and no evidence of any immediate complications. MMODL / IJN: [id number] /
[2018-09-08] MEDS: PRAVASTATIN SODIUM 80 MG TAB PO SCH (22:27)
[2018-09-08] MEDS: MELATONIN 3 MG TABLET PO PRN (22:47)
--- NOTE | 2018-09-08 23:15 | PN ---
PROGRESS NOTE DATE OF SERVICE: 09/08/2018. PRESENTING COMPLAINT: Short of breath. INTERVAL HISTORY: This patient with metastatic lung cancer, presented with large right-sided hydropneumothorax, had a chest tube that was placed. The patient also had talc pleurodesis. Earlier today patient did go for a bronchoscopy. When I saw the patient I did not have the results. The patient is lying in bed, tired-appearing. Chest tube in place. REVIEW OF SYSTEMS: Done for constitutional, cardiovascular, GI, pulmonary; relevant findings as above. CURRENT MEDICATIONS: Reviewed. PHYSICAL EXAMINATION: VITAL SIGNS: Temperature 98.5, pulse 108, respiratory 18, blood pressure 116/71, pulse ox 93 percent on room air. GENERAL APPEARANCE: Lying in bed, tired-appearing. EYES: Pupils equal. Conjunctivae pale. HEENT: External appearance of nose and ears normal. Oral cavity normal. NECK: JVD not raised. Mass not palpable. RESPIRATORY: Effort increased. LUNGS: Diminished breath sounds. CARDIOVASCULAR: 1st and 2nd sounds normal. No edema. ABDOMEN: Soft, nontender. Liver and spleen not palpable. PSYCHIATRY: Alert and oriented x3. Mood and affect anxious-appearing. INVESTIGATIONS: No blood work from today. ASSESSMENT: 1. Large right-sided pneumothorax status post right-sided chest tube. 2. Status post right-sided pleurodesis. 3. Stage IV metastatic adenocarcinoma of the lung on immunotherapy, Opdivo, currently being held. 4. Status post bronchoscopy today showing large middle lobe collapse and involvement of other bronchi and lobes more details in Dr. Plummer's note. 5. Paroxysmal atrial fibrillation currently in sinus rhythm on Xarelto. 6. Chronic obstructive pulmonary disease in an ex-smoker. 7. Gastroesophageal reflux disease. 8. Hyperlipidemia. 9. Essential hypertension. 10.Primary osteoarthritis. 11.Macular degeneration. 12.Severe aortic stenosis with valve area 0.8 cm2 nonrheumatic. 13.Trigeminal neuralgia. 14.Coronary artery disease, nonocclusive. 15.Mild protein-calorie malnutrition from decreased oral intake. 16.Narcotic induced constipation, some response to diuretics. PLAN: Overall prognosis remains poor, especially now given bronchoscopy findings with near occlusion of the bronchus. Either the patient will need a intrabronchial stent or may need a tertiary center. Will let Dr. Plummer decide this with Oncology and go from there. MMODL / IJN: [id number] /
[2018-09-09] MEDS: HYDROmorphone 1 MG/ML 1 ML SYRINGE IVP PRN ×4 (03:09→22:50)
[2018-09-09] MEDS: PANTOPRAZOLE 40 MG TABLET PO SCH (06:08)
[2018-09-09] MEDS: CALCIUM CARBONATE 500 MG CHEWABLE PO SCH (07:55)
[2018-09-09] MEDS: FUROSEMIDE 20 MG TAB PO SCH (07:55)
[2018-09-09] MEDS: MAGNESIUM OXIDE 400 MG TAB PO SCH (07:55)
[2018-09-09] MEDS: LISINOPRIL 5 MG TAB PO SCH (07:55)
[2018-09-09] MEDS: POTASSIUM CHLORIDE ER 10 MEQ TAB.ER.PRT PO SCH ×2 (07:55→20:24)
[2018-09-09] MEDS: CYANOCOBALAMIN 500 MCG TAB PO SCH (07:55)
[2018-09-09] MEDS: VIT A,C & E-LUTEIN-MINERALS 1 EACH TAB PO SCH ×2 (07:55→22:45)
[2018-09-09] MEDS: METOPROLOL TARTRATE 25 MG TAB PO SCH (07:55)
[2018-09-09] MEDS: CLOTRIMAZOLE TROCHE 10 MG TROCHE MUCOUS MEM SCH ×4 (07:56→20:09)
[2018-09-09] MEDS: PSYLLIUM HUSK 100% 6 GM PACKET PO SCH ×2 (07:56→20:09)
[2018-09-09] MEDS: LACTULOSE 20 GM/30 ML CUP PO SCH (07:56)
[2018-09-09] MEDS: NYSTATIN 100,000 UNIT/ML SUSP 500,000 UNIT/5 ML CUP PO SCH ×4 (07:56→20:09)
[2018-09-09] MEDS: PROMETHAZINE 25 MG TAB PO PRN ×2 (08:31→22:45)
[2018-09-09] MEDS: IPRATROPIUM-ALBUTEROL 3 ML NEB INHALATION SCH ×3 (08:48→20:02)
[2018-09-09] MEDS: SENNOSIDES-DOCUSATE SODIUM 1 EACH TAB PO SCH ×2 (09:44→20:09)
--- NOTE | 2018-09-09 11:26 | P.PN ---
Subjective Progress Note Date: 09/09/18 Principal diagnosis: Right-sided hydropneumothorax, status post chest tube insertion. This is an 83 -year-old female patient who has currently metastatic adenocarcinoma of the lung. The patient is known to have COPD and previous history of non-small cell lung cancer. The patient's original diagnosis of lung cancer was established in 2011 through an anterior mediastinal endoscopy. Following that the patient underwent chemoradiation therapy. She responded very well and she remained in remission for many years. As for COPD, the patient is an FEV1 of 50% of predicted and she has also underlying comorbidities including CHF, chronic atrial fibrillation, aortic valve stenosis and the patient has moderate to severe ASO with a valve area of 0.8 cm, coronary artery disease with nonocclusive disease based on the previous cardiac catheterization,, and previous history of breast cancer, and the patient is post mastectomy. The patient upon follow-up was found to have a right upper lobe lesion that was initially measuring 1.8 x 1.6 cm in size in addition to some smaller pretracheal lymph nodes measuring 9 mm. Based on this, the patient was sent for a fine-needle aspiration that did not yield any diagnosis of malignancy. Upon subsequent follow-up, the patient underwent a follow-up CAT scan imaging that showed enlargement of the right upper lobe mass and the PET scan that was done on 07/30/2018 showed increasing mass in the right middle lobe area measuring 2.8 cm in size with a maximum SUV of 8 addition to smaller 7 mm precarinal lymph nodes. There are also numerous pulmonary nodules in the left mid and the left lower lung area measuring up to 8 mm in size and few scattered pulmonary nodules on the right largest being about 2 mm in size. Patient also developed a right-sided pleural effusion. I performed a diagnostic thoracentesis on this patient. A total of 900 mL of pleural fluid was aspirated. The fluid glove turner and former to be malignant and the patient was referred to Dr. Corcoran for treatment and the patient is currently on immunotherapy. The patient came into the emergency department today because of worsening shortness of breath. An x-ray was done and it showed a estimated 30% right- sided hydropneumothorax with a large fluids component attributing the mediastinum and there was some limited shift to the right. Based on this, the patient was seen in emergency department and a chest tube was inserted. I inserted a chest tube and a total of 1500 of pleural fluid was aspirated immediately. There was a positive air leak. Subsequent chest x-ray showed interval improvement of a right-sided hydropneumothorax. There was still some stable pneumothorax in the right apex still seen. Tube was in a good location. The procedure without without any complications. The patient will be admitted to the hospital for now. Her underlying hemodynamics is stable for now. She is expressing some pain along the right chest area for which she is getting Dilaudid 0.5 mg every 6-8 hours. At that the patient was also having difficulties with swallowing. Previous EGD evaluation was negative. She underwent a recent modified barium swallow that showed silent penetration with coating of the vocal cords. After couple of swallows, there was a concern of aspiration based on that the patient had the procedure terminated. On 09/01/2018 patient seen in follow-up. Breathing easier today, less coughing. Right-sided chest tube is in place, no air leak noted, patient had a total of 1850 ML of serosanguineous pleural fluid since the insertion of the chest tube. Currently on 2 L per nasal cannula, with pulse ox of 96%, patient is afebrile, slightly tachycardic, heart rate of 102 BPM. States she is breathing much easier today. Today's chest x-ray has been reviewed by Dr. Mitchell, and shows improvement in the appearance of right-sided pneumothorax, basilar atelectasis. Patient is complaining of difficulty swallowing, and she underwent a recent modified barium swallow was not completed in view of silent penetration. We will aske GI service and speech therapy to reevaluate patient in regards to dysphagia. Patient is seen today 09/02/2018 in follow-up on the selective care unit. She is awake and alert in no acute distress. She is currently sitting up in a chair at the bedside. She does have a loose productive cough of thick sputum. Right-sided chest tube remains in place. We'll serosanguineous drainage. Positive leak with cough. X-ray continues to show right basilar pleural effusion with underlying atelectasis/infiltrate. No sizable pneumothorax. He is continued on DuoNeb inhalations. She is working well with the incentive spirometer. She is currently afebrile. Hemodynamically stable. Maintaining good O2 saturations in the 90s on 2 L/m per nasal cannula. Speech evaluation regarding her dysphagia revealed evidence of presbyesophagus. He has been seen and evaluated by GI services and she is encouraged to avoid meats and breads. A PEG tube was offered but the patient is declining at this time. No plans for EGD. On 09/03/2018, Alicia is doing better and the patient is less short of breath compared to yesterday. The chest x-ray from today shows no evidence of any pneumothorax and a chest tube remains in a good location. Nevertheless, there is still persistent opacification of the right lung base. The chest tube still in place and the total amount of output in the chest tube has been about 3 9 0 mL for yesterday. No evidence of any air leak. Based on the presence of persistent opacification of the right lung base him on a CAT scan of the chest was obtained that showed a small apical anterior right sided pneumothorax. There is a small right basilar pleural effusion. The right lower lobe is still atelectatic and there is a cutoff sign at the level of distal bronchus intermedius. Also, the right middle lobe mass was again seen. The exact cause for the right lower lobe atelectasis is not clear. I think this is to be further investigated by a bronchoscopy. The patient is not producing significant amount of sputum. Her swallowing was evaluated. A modified barium swallow was done which she passed without any evidence of aspiration. No significant chest pain. Chest tubes remains in a good location. On today's evaluation of 09/04/2018, the patient is looking well. The patient is no specific complaints. She is hemodynamically stable. Right-sided chest tube is still in place. The follow-up chest tubes removed from this morning showed that the right sided chest tube still in place. There is no evidence of any pneumothorax. There is improvement in aeration in the right lung base and the right basilar airspace disease. The patient is coughing up some liquid sputum which is noncolored. He is using incentive spirometer. The chest tube output for yesterday was in order of 280 mL and there is no evidence of any air leak and the pleural VAC. Patient is tolerating diet. No significant pain across the right chest area. No nausea. No vomiting. No diarrhea. No abdominal pain. Pain is under good control. She had been complaining of dysphagia and the workup was been essentially negative. On 09/05/2018 patient seen in follow-up on selective care unit. Right-sided chest tube remains in place, to wall suction, and today's chest x-ray shows stable findings, no evident pneumothorax, elevation of the right hemidiaphragm was again noted. Prominent interstitium noted. Slight worsening of the aeration of the right base noted. Patient is on room air, with pulse ox of 92% , she is afebrile, a bit tachycardic, heart rate between 104-110 BPM. Chest tube output is serous fluid, of 180 mL over last 24 hours. Incentive spirometry effort is 500-750 today. Lung sounds are diminished over right lower base. Patient has a congested cough, she's bringing up thick yellow sputum. She is complaining of constipation, she states she has not had a bowel movement in over a week. Abdomen is soft, she denies any abdominal pain. She is on oral lactulose and Metamucil. Her Opdivo remains on hold. The patient is seen again today 09/06/2018 in follow-up on the selective care unit. She is currently sitting up at the bedside. She is awake and alert in no acute distress. She is maintaining good O2 saturations in the 90s on room air. She's been afebrile. Slightly tachycardic. Blood pressure stable. Chest x-ray reveals postoperative changes. There is a right pleural effusion with associated atelectasis. Underlying lung mass in the right upper lobe is obscured. Chest tube remains in place. She is working with the incentive spirometer still only approximately 500 ML's. She remains on bronchodilators. Fentanyl and Dilaudid for pain control. The patient is seen again today 09/07/2018 in follow-up on the selective care unit. She is awake and alert in no acute distress. Currently sitting up at the bedside. She continues with a loose nonproductive cough. She is maintaining good O2 saturations in the 90s on room air. She's been afebrile. Hemodynamically stable. Chest x-ray reveals pleural parenchymal changes which are stable. Chest tube in place. She did receive 40 ML's of talc slurry instilled in the right pleural chest tube yesterday. On 09/08/2018 patient seen in follow-up on selective care unit. Right sided chest tube remains in place, she is status post total pleurodesis, postop day 2. She is resting comfortably in bed, in no acute distress, she has frequent productive cough, with production of clear sputum. She has some moderate amount of chest wall discomfort at the chest wall insertion sites. She is working on her incentive spirometry, she is able to achieve 500-759 today. Chest tube output is decreasing, there has been about 30 ML of pleural fluid in the last 24 hours. Today's chest x-ray has been reviewed, and shows stable findings, with the right-sided chest tube in place, opacity at the lower aspect of the right chest, which is likely to represent pleural effusion and associated atelectasis. Labs have been reviewed, no leukocytosis, Giselle BC is 10.0, hemoglobin is 13.1, electrolytes are within normal limits except for CO2 which is at 32, renal profile is normal. No fever no chills. Patient is scheduled for bronchoscopy today by Dr. Hughes. The patient is seen again today 09/09/2018 in follow-up on the selective care unit. She is currently resting quite comfortably in bed. She is awake and alert in no acute distress. She is breathing easier today as compared to yesterday. Minimal output from the chest tube. She did undergo bronchoscopy with BAL by Dr. Plummer yesterday. Cultures are pending. She is maintaining good O2 saturations in the low 90s on room air. She continues to work well with the incentive spirometer. She's afebrile. Objective - Vital Signs Vital signs: Vital Signs Temp 98.4 F 09/09/18 07:52 Pulse 88 09/09/18 08:57 Resp 18 09/09/18 07:52 BP 110/60 09/09/18 07:52 Pulse Ox 92 L 09/09/18 07:52 Intake & Output 09/08/18 09/09/18 09/09/18 18:59 06:59 18:59 Intake Total 50 200 0 Output Total 50 10 Balance 0 190 0 Weight 61.4 kg Intake: IV 50 Oral 200 0 Output: Chest Tube Drainage 50 10 Chest Tube Right Mid- 50 10 Axillary Chest Other: Voiding Method Toilet Toilet Toilet # Voids 1 1 # Bowel Movements 1 - Exam General Appearance no respiratory distress, speech not interrupted by breaths, no dyspnea, no pallor, not cachectic, well nourished, appears well HEENT no pursed lip breathing, no jugular venous distention, no mucous membrane cyanosis, no perioral cyanosis, mallampati classification: class 1 Chest no barrel chest, no retractions, no sternocleidomastoid muscle contractions, no supraclavicular retractions, no intercostal retractions, the patient is postop mastectomy. Lung sounds are diminished over right base, Right -sided chest tube is in place Heart no right ventricular heave, no distant heart sounds, no s3 gallop, (normal ) jugular vein: jugular venous distention: by 0cm, Murmurs: Unspecified Location : Systolic: Grade 3 / IV (systolic ejection murmur G3/6) GI bowel sounds: Normal bowel sounds Extremities no cyanosis, no clubbing, no edema Neurologic no decreased mental status, no somnolence, no confusion Examination of the skin revealed no evidence of significant rashes, suspicious appearing nevi or other concerning lesions. - Labs CBC & Chem 7: 09/07/18 10:38 09/07/18 10:38 Labs: Microbiology - Last 24 Hours (Table) 09/08/18 13:05 Gram Stain - Preliminary Bronchial Washings - Right Bronchial Washings Culture - Preliminary Assessment and Plan Assessment: Impression: 1 right-sided hydropneumothorax, post chest tube insertion and there is positive air leak with some residual pneumothorax on subsequent chest x-ray. Chest tube in place. Talc slurry he was injected 09/06/2018. Peripheral mid right lung mass. There is also multiple peripheral punctate nodularities within the left lung suspicious for metastatic disease. Bronchoscopy with BAL performed on 09/08/2018. Cultures pending. 2 adenocarcinoma of the lung, stage IV. The patient is currently on immunotherapy and she received her first session of Opdivo through Dr. Corcoran 3 COPD with a baseline FEV1 of 50% of predicted 4 malignant right-sided pleural effusion 5 aortic valve stenosis, nonsurgical case and the patient has a valve area of 0.8 cm 6 paroxysmal atrial fibrillation currently on anticoagulation with Xarelto 7 worsening shortness of breath secondary to above. The patient's increased dyspnea with essentially due to development of a right-sided pleural effusion and pneumothorax/hydropneumothorax 8 nonocclusive coronary artery disease 9 hypothyroidism 10 moderate to severe aortic stenosis 11 hyperlipidemia 12 trigeminal neuralgia 13 chronic ALLERGIC rhinitis 14 remote history of breast cancer with a previous right mastectomy Plan: The patient was seen and evaluated by Dr. Plummer. Bronchoscopy with BAL performed 09/08/2018. Cultures are pending. Chest tube remains in place. Talc pleurodesis on 09/06/2018. She is again encouraged regarding the increased use of the incentive spirometer. We'll increase her activity as tolerated. Continue bronchodilators. We'll continue to follow. I, the cosigning physician, performed a history & physical examination of the patient. Lungs sounds few scattered rhonchi more so on the right lung. Maintaining good O2 saturations in the 90s on room air. I discussed the assessment and plan of care with my nurse practitioner, Rehana Sanchez. I attest to the above note as dictated by her.
--- NOTE | 2018-09-09 13:17 | XR ---
EXAMINATION TYPE: XR chest 1V portable DATE OF EXAM: 09/09/2018 COMPARISON: 09/08/2018 HISTORY: Pleural effusion TECHNIQUE: Single frontal view of the chest is obtained. FINDINGS: There is right-sided consolidation and pleural effusion stable. Right-sided chest tube see n with apical pleural thickening. Diffuse osteopenia. Hyperinflation suggests COPD and there are surg ical clips overlying the left chest and axilla. Atherosclerotic change aorta. IMPRESSION: 1. Right-sided consolidation and pleural effusion with chest tube are stable. 2. Stable cardiomegaly correlate for underlying interstitial chronic lung disease or COPD.
[2018-09-09] MEDS: ONDANSETRON 4 MG/2 ML VIAL IVP PRN (16:04)
--- NOTE | 2018-09-09 16:16 | P.PN ---
Subjective Progress Note Date: 09/09/18 Principal diagnosis: Malignant right pleural effusion, adenocarcinoma of the lung. Previous medical history of COPD, history of non-small cell lung cancer and chemoradiation, CHF, chronic atrial fibrillation several total for anticoagulation, aortic valve stenosis, coronary artery disease with history of cardiac catheterization, breast cancer status post right mastectomy as well as left lumpectomy. Status post day #3 talc pleurodesis, right side. POD #1 bronchoscopy with BAL performed by Dr. Plummer from pulmonary medicine. Patient is laying in bed and remains complaining of nausea. She reports the nausea has somewhat improved over the last 24 hours. She denies any complaints of pain although she reports that her shortness of breath is the same. She is achieving 750 mL on her incentive spirometry. Right pleural chest tube remains in place draining thin scant serosanguineous drainage. Objective - Vital Signs Vital signs: Vital Signs Temp 98.4 F 09/09/18 07:52 Pulse 88 09/09/18 08:57 Resp 18 09/09/18 07:52 BP 110/60 09/09/18 07:52 Pulse Ox 92 L 09/09/18 07:52 Intake & Output 09/08/18 09/09/18 09/09/18 18:59 06:59 18:59 Intake Total 50 200 0 Output Total 50 10 Balance 0 190 0 Weight 61.4 kg Intake: IV 50 Oral 200 0 Output: Chest Tube Drainage 50 10 Chest Tube Right Mid- 50 10 Axillary Chest Other: Voiding Method Toilet Toilet Toilet # Voids 1 1 # Bowel Movements 1 - Constitutional General appearance: Present: cooperative, no acute distress - Respiratory Details: Lung sounds essentially clear throughout, diminished bilateral bases right greater than left. Respirations are symmetrical and nonlabored. Oxygen saturation is are 92% on room air. She is achieving 750 mL on her incentive spirometry with encouragement. Right pleural chest tube remains in place to low continuous wall suction -20 cm H2O. Continues to drain thin serosanguineous drainage, 10 mL output in the last 8 hours, 60 mL output in the last 24 hours. No air leak is present. - Cardiovascular Details: Regular rhythm and tachycardic rate. S1 and S2 present, positive systolic murmur 2/6 heard best to her left sternal border. Remote telemetry showing sinus tachycardia heart rate 107. No edema present. Sequential compression devices in place to her bilateral lower extremities. - Gastrointestinal Gastrointestinal Comment(s): Abdomen is soft, nontender nondistended. Active bowel sounds all 4 abdominal quadrants. Tolerating minimal oral intake due to her nausea. No guarding or rigidity, no organomegaly. - Genitourinary Genitourinary Comment(s): Voiding clear yellow urine. - Neurologic Neurologic: Present: CNII-XII intact - Musculoskeletal Musculoskeletal: Present: gait normal, generalized weakness, strength equal bilaterally - Psychiatric Psychiatric: Present: A&O x's 3, appropriate affect, intact judgment & insight - Allied health notes Allied health notes reviewed: nursing - Labs CBC & Chem 7: 09/07/18 10:38 09/07/18 10:38 Labs: Microbiology - Last 24 Hours (Table) 09/08/18 13:05 Gram Stain - Preliminary Bronchial Washings - Right Bronchial Washings Culture - Preliminary - Imaging and Cardiology Chest x-ray: report reviewed, image reviewed Assessment and Plan (1) Aortic valve stenosis Current Visit: Yes Status: Chronic Code(s): I35.0 - NONRHEUMATIC AORTIC ( VALVE) STENOSIS SNOMED Code(s): 32249425 (2) COPD (chronic obstructive pulmonary disease) Current Visit: Yes Status: Chronic Code(s): J44.9 - CHRONIC OBSTRUCTIVE PULMONARY DISEASE, UNSPECIFIED SNOMED Code(s): 11616933 (3) Chronic anticoagulation Current Visit: Yes Status: Chronic Code(s): Z79.01 - USP (CURRENT) USE OF ANTICOAGULANTS SNOMED Code(s): 778870842 (4) Chronic atrial fibrillation Current Visit: Yes Status: Chronic Code(s): I48.2 - CHRONIC ATRIAL FIBRILLATION SNOMED Code(s): 443715872 (5) Congestive heart failure Current Visit: Yes Status: Chronic Code(s): I50.9 - HEART FAILURE, UNSPECIFIED SNOMED Code(s): 73072081 (6) Coronary artery disease Current Visit: Yes Status: Chronic Code(s): I25.10 - ATHSCL HEART DISEASE OF [place] CORONARY ARTERY W/O ANG PCTRS SNOMED Code(s): 12109456 (7) Lung cancer Current Visit: Yes Status: Chronic Code(s): C34.90 - MALIGNANT NEOPLASM OF UNSP PART OF UNSP BRONCHUS OR LUNG SNOMED Code(s): 028401808 Plan: 1. We will discontinue her right pleural chest tube today. 2. Bronchoscopy completed by pulmonary medicine yesterday which demonstrated evidence of tumor involvement of the right mainstem bronchus, right middle lobe , right bronchus intermedius and almost separate total occlusion of the right middle lobe, less occlusion of the right lower lobe bronchus and also subtotal occlusion of the right upper lobe. 3. Encourage incentive spirometry use 10 times every hour while awake. 4. Medical management per primary, pulmonology, and oncology recommendations. 5. GI/DVT prophylaxis. 6. More recommendations to follow based on patient's clinical course. Time with Patient: Greater than 30
[2018-09-09] MEDS: RIVAROXABAN 20 MG TAB PO SCH (16:58)
[2018-09-09] MEDS: PRAVASTATIN SODIUM 80 MG TAB PO SCH (20:09)
--- NOTE | 2018-09-09 22:40 | PN ---
PROGRESS NOTE DATE OF SERVICE: 09/09/2018. PRESENTING COMPLAINT: Tired. INTERVAL HISTORY: This is a patient with metastatic lung cancer, presented large right-sided pneumothorax with a chest tube placed. was carried out. tight and the tube was now removed. Patient is status post bronchoscopy showing significant compression of the bronchi. The patient is somewhat tired. Appetite is not very good. Lying in bed. REVIEW OF SYSTEMS: Done for constitutional, cardiovascular, GI, pulmonary; relevant findings as above. CURRENT MEDICATIONS: Reviewed. PHYSICAL EXAMINATION: VITAL SIGNS: Temperature 99. Pulse 110, respiration 21, blood pressure 95/57, pulse 94 percent on 1.5 L. GENERAL APPEARANCE: Lying in bed, tired-appearing. EYES: Pupils equal. Conjunctivae pale. HEENT: External appearance of nose and ears normal. Oral cavity normal. NECK: JVD not raised. Mass not palpable. RESPIRATORY: Effort increased. LUNGS: Decreased breath sounds. CARDIOVASCULAR: 1st and 2nd sounds normal. No edema. ABDOMEN: Soft, nontender. Liver and spleen not palpable. PSYCHIATRY: Awake, slightly anxious. INVESTIGATIONS: No blood work from today. ASSESSMENT: 1. Right large right sided hydropneumothorax status post right-sided chest tube followed by pleurodesis. Chest tube is not taken out. 2. Stage IV metastatic adenocarcinoma of lung on immunotherapy Opdivo, currently being held. That was started recently. 3. Status post bronchoscopy showing large middle lobe collapse and involvement of other bronchi. 4. Paroxysmal atrial fibrillation currently in sinus rhythm on Xarelto. 5. Chronic obstructive pulmonary disease in an ex-smoker. 6. Gastroesophageal reflux disease. 7. Hyperlipidemia. 8. Essential hypertension. 9. Primary osteoarthritis. 10.Macular degeneration. 11.Severe aortic stenosis with valve area 0.8 cm2 nonrheumatic. 12.Trigeminal neuralgia. 13.Coronary artery disease, nonocclusive. 14.Mild protein-calorie malnutrition from decreased oral intake. 15.Narcotic induced constipation with response to laxatives. PLAN: Overall prognosis is not good. I spoke to Dr. Bill, given that patient has only had a small trial of Opdivo, if the patient's pulmonary status is stabilized, the patient may respond to the drug. I will leave this decision to both Pulmonary and Oncology to see where this patient stands with this. In the meantime, patient's other supportive treatment will continue and will decide from there. [id number] / IJN: [id number] /
[2018-09-10] MEDS: ONDANSETRON 4 MG/2 ML VIAL IVP PRN ×2 (00:49→07:42)
[2018-09-10] MEDS: PANTOPRAZOLE 40 MG TABLET PO SCH (06:08)
--- NOTE | 2018-09-10 06:33 | XR ---
EXAMINATION TYPE: XR chest 2V DATE OF EXAM: 09/10/2018 HISTORY: Post right talc pleurodesis.. REFERENCE: Previous study dated 09/09/2018. FINDINGS: The patient's right pleural drain has been removed. There is an air-fluid level in the righ t hemithorax. Heart size is obscured. There is mild vascular congestion and edema involving the left lung. IMPRESSION: 1. HYDROPNEUMOTHORAX ON THE RIGHT. 2. FINDINGS CONSISTENT WITH MILD HEART FAILURE.
[2018-09-10] MEDS: LACTULOSE 20 GM/30 ML CUP PO SCH (07:47)
[2018-09-10] MEDS: CALCIUM CARBONATE 500 MG CHEWABLE PO SCH (07:48)
[2018-09-10] MEDS: NYSTATIN 100,000 UNIT/ML SUSP 500,000 UNIT/5 ML CUP PO SCH ×4 (07:48→19:35)
[2018-09-10] MEDS: VIT A,C & E-LUTEIN-MINERALS 1 EACH TAB PO SCH ×2 (07:48→19:35)
[2018-09-10] MEDS: CYANOCOBALAMIN 500 MCG TAB PO SCH (07:48)
[2018-09-10] MEDS: SENNOSIDES-DOCUSATE SODIUM 1 EACH TAB PO SCH ×2 (07:49→19:36)
[2018-09-10] MEDS: POTASSIUM CHLORIDE ER 10 MEQ TAB.ER.PRT PO SCH ×2 (07:49→19:36)
[2018-09-10] MEDS: MAGNESIUM OXIDE 400 MG TAB PO SCH (07:49)
[2018-09-10] MEDS: METOPROLOL TARTRATE 25 MG TAB PO SCH (07:49)
[2018-09-10] MEDS: CLOTRIMAZOLE TROCHE 10 MG TROCHE MUCOUS MEM SCH ×4 (07:50→19:36)
[2018-09-10] MEDS: FUROSEMIDE 20 MG TAB PO SCH (07:50)
[2018-09-10] MEDS: PSYLLIUM HUSK 100% 6 GM PACKET PO SCH ×2 (07:50→19:35)
[2018-09-10] MEDS: IPRATROPIUM-ALBUTEROL 3 ML NEB INHALATION SCH ×3 (09:35→20:50)
--- NOTE | 2018-09-10 10:05 | P.PN ---
Subjective Progress Note Date: 09/10/18 Principal diagnosis: Malignant right pleural effusion, adenocarcinoma of the lung, bronchogenic carcinoma involving right mainstem bronchus, bronchus intermedius, and right middle lobe with subtotal occlusion of the right middle lobe, right lower lobe, and right upper lobe.. Previous medical history of COPD, previous non-small cell lung cancer and chemoradiation, CHF, chronic atrial fibrillation several total for anticoagulation, aortic valve stenosis, coronary artery disease with history of cardiac catheterization, breast cancer status post right mastectomy as well as left lumpectomy. POD #4 talc installation to right pleural chest tube. POD #2 bronchoscopy and washings of the right middle lobe bronchus intermedius, right mainstem bronchus and right middle lobe bronchus. The patient is currently sitting up in bed in no acute distress. Does continue to complain of nausea and shortness of breath. She does not complain of any pain. Right pleural chest tube was discontinued yesterday. Objective - Vital Signs Vital signs: Vital Signs Temp 98.3 F 09/10/18 07:57 Pulse 108 H 09/10/18 07:58 Resp 22 09/10/18 07:58 BP 96/66 09/10/18 07:57 Pulse Ox 90 L 09/10/18 07:57 Intake & Output 09/09/18 09/10/18 09/10/18 18:59 06:59 18:59 Intake Total 180 118 Output Total 20 Balance 160 118 Weight 61.4 kg 61.8 kg Intake: Oral 180 118 Output: Chest Tube Drainage 20 Chest Tube Right Mid- 20 Axillary Chest Other: Voiding Method Toilet Toilet Toilet # Voids 1 # Bowel Movements 1 - Constitutional General appearance: Present: cooperative, no acute distress - Respiratory Details: Lungs sounds diminished bilaterally, right greater than left. Respirations even , nonlabored. Currently on 1.5 L nasal cannula with oxygen saturation 95%. Able to achieve 750 mL on her incentive spirometry. - Cardiovascular Details: S1, S2 present. Regular but tachycardic rate and rhythm, sinus tach on telemetry. Palpable peripheral pulses bilaterally. No edema present. No calf pain or tenderness noted. - Gastrointestinal Gastrointestinal Comment(s): Abdomen soft, nontender, nondistended. Active bowel sounds present. Patient tolerating minimal diet, very nauseous. - Genitourinary Genitourinary Comment(s): Continues to void. - Integumentary Integumentary Comment(s): Skin is warm and dry with evidence of good perfusion. Right former chest tube site well approximated and covered with dry intact dressing. - Neurologic Neurologic: Present: CNII-XII intact - Musculoskeletal Musculoskeletal: Present: gait normal, strength equal bilaterally - Psychiatric Psychiatric: Present: A&O x's 3, appropriate affect, intact judgment & insight - Allied health notes Allied health notes reviewed: nursing - Labs CBC & Chem 7: 09/07/18 10:38 09/07/18 10:38 Labs: Microbiology - Last 24 Hours (Table) 09/08/18 13:05 Gram Stain - Preliminary Bronchial Washings - Right Bronchial Washings Culture - Preliminary - Imaging and Cardiology Chest x-ray: report reviewed, image reviewed Assessment and Plan (1) Chronic atrial fibrillation Current Visit: Yes Status: Chronic Code(s): I48.2 - CHRONIC ATRIAL FIBRILLATION SNOMED Code(s): 038860167 (2) Chronic anticoagulation Current Visit: Yes Status: Chronic Code(s): Z79.01 - JOB PLACEMENT COUNSELOR (CURRENT) USE OF ANTICOAGULANTS SNOMED Code(s): 478504321 (3) Congestive heart failure Current Visit: Yes Status: Chronic Code(s): I50.9 - HEART FAILURE, UNSPECIFIED SNOMED Code(s): 83593584 (4) Aortic valve stenosis Current Visit: Yes Status: Chronic Code(s): I35.0 - NONRHEUMATIC AORTIC ( VALVE) STENOSIS SNOMED Code(s): 37460343 (5) Coronary artery disease Current Visit: Yes Status: Chronic Code(s): I25.10 - ATHSCL HEART DISEASE OF [place] CORONARY ARTERY W/O ANG PCTRS SNOMED Code(s): 25002933 (6) Hydropneumothorax Current Visit: Yes Status: Acute Code(s): J94.8 - OTHER SPECIFIED PLEURAL CONDITIONS SNOMED Code(s): 40526464 (7) Lung cancer Current Visit: Yes Status: Chronic Code(s): C34.90 - MALIGNANT NEOPLASM OF UNSP PART OF UNSP BRONCHUS OR LUNG SNOMED Code(s): 858871986 (8) COPD (chronic obstructive pulmonary disease) Current Visit: Yes Status: Chronic Code(s): J44.9 - CHRONIC OBSTRUCTIVE PULMONARY DISEASE, UNSPECIFIED SNOMED Code(s): 84102622 Plan: 1. Right pleural chest tube discontinued yesterday. 2. Encourage incentive spirometry use 10 times every hour while awake. 3. Medical management per primary, pulmonology, oncology. 4. GI/DVT prophylaxis. 5. Will sign off of case. Please call us with any further questions. Time with Patient: Less than 30
[2018-09-10] MEDS: LISINOPRIL 5 MG TAB PO SCH (11:00)
[2018-09-10] MEDS: HYDROmorphone 1 MG/ML 1 ML SYRINGE IVP PRN ×3 (11:21→22:24)
--- NOTE | 2018-09-10 14:05 | PN ---
PROGRESS NOTE DATE OF ADMISSION: September 10, 2018. Alicia is seen today as a followup. She continued to have issues with gagging. She did undergo talc pleurodesis. She denies any shortness of breath, but she is overall tired and she has some gagging and she is only tolerating liquids at this point in time. PHYSICAL EXAMINATION: She is alert, oriented x3. She does not appear to be in distress. Her vital signs are temperature 98.2 afebrile. Pulse 98, regular, respiration 20, blood pressure 96/66. HEENT: Normocephalic. NECK: Supple. Chest equal expansion bilaterally. Lung revealed decreased breath sounds in the right base. Heart is regular. Abdomen is soft. No tenderness. Extremities revealed no edema. MEDICATIONS: Her medications are reviewed in her electronic record. LABORATORY DATA: Recent laboratory data revealed WBC of 10.0, hemoglobin 13.1, hematocrit 39.1, platelets 357. IMPRESSION: Recurrent non-small cell lung carcinoma. She was initially diagnosed in 2011 and just recently she had recurrence with malignant pleural effusion. She did undergo pleurodesis and the patient just started on immunotherapy with utilization of Opdivo and she just had 1 does so far. RECOMMENDATION: 1. Continue current management per Pulmonary Service. 2. From Oncology standpoint, she could be discharged for rehabilitation and she will resume immunotherapy in the outpatient setting. MMODL / IJN: [id number] /
[2018-09-10] MEDS: PROMETHAZINE 25 MG TAB PO PRN ×2 (14:23→19:36)
[2018-09-10] MEDS: RIVAROXABAN 20 MG TAB PO SCH (16:43)
--- NOTE | 2018-09-10 17:32 | PN ---
PROGRESS NOTE DATE OF SERVICE: 09/10/2018. PRESENTING COMPLAINT: Diarrhea. INTERVAL HISTORY: This patient with metastatic lung cancer, recurrent, presented with large right-sided pleural effusion, on the chest tube followed by pleurodesis. The patient also status post bronchoscopy. Remains tired. Tolerating small amounts of food. No fever. No chills. REVIEW OF SYSTEMS: Done for constitutional, cardiovascular, GI, pulmonary; relevant findings as above. CURRENT MEDICATIONS: Reviewed. PHYSICAL EXAMINATION: Temperature 97.9, pulse 109, respiratory 18, blood pressure 105/72, pulse ox 96 percent on 1.5 L. GENERAL APPEARANCE: Lying in bed, tired-appearing. EYES: Pupils equal. Conjunctivae pale. HEENT external appearance of nose and ears normal. Oral cavity normal. NECK: JVD not raised. Mass not palpable. RESPIRATORY: Effort increased. LUNGS: Decreased breath sounds. CARDIOVASCULAR: 1st and 2nd sounds normal. No edema. ABDOMEN: Soft, nontender. Liver and spleen not palpable. PSYCHIATRY: Awake, answering questions appropriately. INVESTIGATIONS: No blood work from today. ASSESSMENT: 1. Large right-sided pleural effusion status post chest tube followed by pleurodesis. Chest tube is now taken out. 2. Stage IV metastatic adenocarcinoma. Had been on Opdivo that was just started recently as an outpatient currently held. 3. Status post bronchoscopy showing large middle lobe collapse with involvement of the bronchi. 4. Paroxysmal atrial fibrillation currently in sinus rhythm on Xarelto. 5. Chronic obstructive pulmonary disease in an ex-smoker. 6. Gastroesophageal reflux disease. 7. Hyperlipidemia. 8. Essential hypertension. 9. Primary osteoarthritis. 10.Macular degeneration. 11.Severe aortic stenosis with a valve area 0.8 cm2 nonrheumatic. 12.Trigeminal neuralgia. 13.Coronary artery disease, nonocclusive. 14.Mild protein-calorie malnutrition from decreased oral intake. 15.Narcotic induced constipation response to laxative. PLAN: Discussed with Dr. Corcoran from Oncology. The patient is only on Opdivo for 1 dose. Patient should be able to take this after she is done with the rehab. I talked to the patient. She wanted to go to rehab on Wednesday. In the meantime, continue current medication and treatment plan. Will follow. MMODL / IJN: [id number] /
[2018-09-10] MEDS: PRAVASTATIN SODIUM 80 MG TAB PO SCH (19:36)
[2018-09-11] MEDS: HYDROmorphone 1 MG/ML 1 ML SYRINGE IVP PRN ×3 (00:58→17:08)
[2018-09-11] MEDS: ONDANSETRON 4 MG/2 ML VIAL IVP PRN ×3 (00:59→17:07)
[2018-09-11] MEDS: ALPRAZolam 0.25 MG TAB PO PRN (00:59)
[2018-09-11] MEDS: IPRATROPIUM-ALBUTEROL 3 ML NEB INHALATION SCH ×4 (08:42→21:14)
[2018-09-11] MEDS: POTASSIUM CHLORIDE ER 10 MEQ TAB.ER.PRT PO SCH ×2 (08:46→22:01)
[2018-09-11] MEDS: SENNOSIDES-DOCUSATE SODIUM 1 EACH TAB PO SCH ×2 (08:46→22:24)
[2018-09-11] MEDS: MAGNESIUM OXIDE 400 MG TAB PO SCH (08:46)
[2018-09-11] MEDS: LISINOPRIL 5 MG TAB PO SCH (08:46)
[2018-09-11] MEDS: PSYLLIUM HUSK 100% 6 GM PACKET PO SCH ×2 (08:46→22:25)
[2018-09-11] MEDS: FUROSEMIDE 20 MG TAB PO SCH (08:46)
[2018-09-11] MEDS: NYSTATIN 100,000 UNIT/ML SUSP 500,000 UNIT/5 ML CUP PO SCH ×4 (08:46→22:24)
[2018-09-11] MEDS: VIT A,C & E-LUTEIN-MINERALS 1 EACH TAB PO SCH ×2 (08:46→22:24)
[2018-09-11] MEDS: CLOTRIMAZOLE TROCHE 10 MG TROCHE MUCOUS MEM SCH ×4 (08:47→22:24)
[2018-09-11] MEDS: CYANOCOBALAMIN 500 MCG TAB PO SCH (08:47)
[2018-09-11] MEDS: PANTOPRAZOLE 40 MG TABLET PO SCH (08:47)
[2018-09-11] MEDS: CALCIUM CARBONATE 500 MG CHEWABLE PO SCH (08:47)
[2018-09-11] MEDS: METOPROLOL TARTRATE 25 MG TAB PO SCH (08:47)
[2018-09-11] MEDS: LACTULOSE 20 GM/30 ML CUP PO SCH (08:47)
[2018-09-11] MEDS: NAPROXEN 250 MG TAB PO SCH ×2 (17:06→22:25)
[2018-09-11] MEDS: RIVAROXABAN 20 MG TAB PO SCH (17:08)
--- NOTE | 2018-09-11 21:59 | PN ---
PROGRESS NOTE DATE OF SERVICE: 09/11/2018 PRESENTING COMPLAINT: Tired. INTERVAL HISTORY: This patient has metastatic lung cancer, recurrent, status post right-sided pleural effusion, had a chest tube followed by pleurodesis. Status post bronchoscopy. The patient is pending to go to rehab. Appetite remains low. REVIEW OF SYSTEMS: Done for constitutional, cardiovascular, GI, pulmonary and relevant findings as above. CURRENT MEDICATIONS: Reviewed. PHYSICAL EXAMINATION: VITAL SIGNS: Temperature 97.7, pulse 113, respiratory 18, blood pressure 94/65, pulse ox 94 percent on room air. GENERAL APPEARANCE: Lying in bed, tired appearing. EYES: Pupils are equal. Conjunctivae pale. HEENT: External appearance of nose and ears normal. Oral cavity normal. NECK: JVD not raised. Mass not palpable. RESPIRATORY: Effort normal. LUNGS: Decreased breath sounds. CARDIOVASCULAR: 1st and 2nd sounds normal. No edema. ABDOMEN: Soft, nontender. Liver and spleen not palpable. PSYCHIATRY: Alert and oriented x3. Mood and affect normal. A bit anxious. INVESTIGATIONS: No blood work from today. ASSESSMENT: 1. Large right-sided pleural effusion status post chest tube followed by pleurodesis. 2. Stage IV metastatic adenocarcinoma. The patient will resume Opdivo after she is finished with inpatient rehab. 3. Status post bronchoscopy showing large middle lobe near obstruction of the right middle lobe bronchus involving the other bronchi too. 4. Paroxysmal atrial fibrillation currently in sinus rhythm on Xarelto. 5. Chronic obstructive pulmonary disease in an ex-smoker. 6. Gastroesophageal reflux disease. 7. Hyperlipidemia. 8. Essential hypertension. 9. Primary osteoarthritis. 10.Macular degeneration. 11.Severe aortic stenosis, valve area 0.8 cm2 nonrheumatic. 12.Trigeminal neuralgia. 13.Coronary artery disease, nonocclusive. 14.Mild protein-calorie malnutrition from decreased oral intake. 15.Narcotic induced constipation, response to laxative. PLAN: Discussed with the patient. The patient will be going to rehab. When she is done with rehab, then she will resume Opdivo. Prognosis is guarded. MMODL / IJN: [id number] /
[2018-09-11] MEDS: PRAVASTATIN SODIUM 80 MG TAB PO SCH (22:25)
[2018-09-11] MEDS: FAMOTIDINE 20 MG/2 ML VIAL IV SCH (22:26)
[2018-09-12] MEDS: IPRATROPIUM-ALBUTEROL 3 ML NEB INHALATION SCH ×2 (07:48→15:28)
[2018-09-12] MEDS: PANTOPRAZOLE 40 MG TABLET PO SCH (08:18)
[2018-09-12] MEDS: FUROSEMIDE 20 MG TAB PO SCH (08:18)
[2018-09-12] MEDS: MAGNESIUM OXIDE 400 MG TAB PO SCH (08:18)
[2018-09-12] MEDS: FAMOTIDINE 20 MG/2 ML VIAL IV SCH (08:18)
[2018-09-12] MEDS: LACTULOSE 20 GM/30 ML CUP PO SCH (08:18)
[2018-09-12] MEDS: NYSTATIN 100,000 UNIT/ML SUSP 500,000 UNIT/5 ML CUP PO SCH ×2 (08:18→12:16)
[2018-09-12] MEDS: VIT A,C & E-LUTEIN-MINERALS 1 EACH TAB PO SCH (08:19)
[2018-09-12] MEDS: CLOTRIMAZOLE TROCHE 10 MG TROCHE MUCOUS MEM SCH ×2 (08:19→12:16)
[2018-09-12] MEDS: LISINOPRIL 5 MG TAB PO SCH (08:19)
[2018-09-12] MEDS: CALCIUM CARBONATE 500 MG CHEWABLE PO SCH (08:19)
[2018-09-12] MEDS: CYANOCOBALAMIN 500 MCG TAB PO SCH (08:19)
[2018-09-12] MEDS: NAPROXEN 250 MG TAB PO SCH ×2 (08:19→16:21)
[2018-09-12] MEDS: POTASSIUM CHLORIDE ER 10 MEQ TAB.ER.PRT PO SCH (08:20)
[2018-09-12] MEDS: METOPROLOL TARTRATE 25 MG TAB PO SCH (08:20)
[2018-09-12] MEDS: SENNOSIDES-DOCUSATE SODIUM 1 EACH TAB PO SCH (08:24)
[2018-09-12] MEDS: PSYLLIUM HUSK 100% 6 GM PACKET PO SCH (08:24)
[2018-09-12 11:42] VITALS: BMI 23.3
--- NOTE | 2018-09-12 12:19 | P.PN ---
Subjective Progress Note Date: 09/12/18 Principal diagnosis: VIVI, pleural effusion Pt seen in f/u, seh is s/p talc pelurodesis and bronch with washings performed, path pending. Pt is on good spirits today, appetite fair, no nausea, she ambulated today short distance today, c/o moderate weakness and some SOB which she recovered from in just a few minutes. No other symptoms to report on a 10 point ROS. Objective - Vital Signs Vital signs: Vital Signs Temp 97.7 F 09/12/18 05:14 Pulse 88 09/12/18 08:02 Resp 17 09/12/18 05:14 BP 108/69 09/12/18 05:14 Pulse Ox 95 09/12/18 07:56 Intake & Output 09/11/18 09/12/18 09/12/18 18:59 06:59 18:59 Intake Total 550 Balance 550 Weight 61.8 kg Intake: Oral 550 Other: Voiding Method Toilet Toilet # Voids 3 3 - Constitutional General appearance: Present: average body habitus, cooperative, no acute distress - Respiratory Respiratory: bilateral: CTA (few crackles in right lung base) - Cardiovascular Rhythm: regular Heart sounds: normal: S1, S2 - Gastrointestinal General gastrointestinal: Present: normal bowel sounds, soft - Neurologic Neurologic: Present: CNII-XII intact - Musculoskeletal Musculoskeletal: Present: generalized weakness - Psychiatric Psychiatric: Present: A&O x's 3, appropriate affect, intact judgment & insight - Labs CBC & Chem 7: 09/07/18 10:38 09/07/18 10:38 Labs: Microbiology - Last 24 Hours (Table) 09/08/18 13:05 Gram Stain - Final Bronchial Washings - Right Bronchial Washings Culture - Final Assessment and Plan (1) Non-small cell lung cancer (NSCLC) Narrative/Plan: Pt is s/p talc pleurodesis for recurrent malignant pl effusion with improvement in respiratory symptoms. High PDL1 biomarker, Pt has had 1 cycle of immunotherapy, not enough treatment to have impact on disease yet. Plan is to continue immunotherapy once pt has completed rehabilitation. Pt and family understand and agree with plan. F/U after rehab Current Visit: Yes Status: Acute Priority: High Code(s): C34.90 - MALIGNANT NEOPLASM OF UNSP PART OF UNSP BRONCHUS OR LUNG SNOMED Code(s): 558677346 (2) Weakness Narrative/Plan: Due to prolonged bedrest. Recommend rehabilitation, pt agrees. Treatment for malignancy is on hold until completion of rehabilitation. Current Visit: Yes Status: Acute Priority: High Code(s): R53.1 - WEAKNESS SNOMED Code(s): 07662438 (3) Chronic anticoagulation Narrative/Plan: No evidence of bleeding at this time. Cont anticoagulant as prescribed Current Visit: Yes Status: Chronic Priority: Medium Code(s): Z79.01 - CUSTODIAL (CURRENT) USE OF ANTICOAGULANTS SNOMED Code(s): 515074854
[2018-09-12 12:31] VITALS: BP 102/79; RESP 18; TEMP 97.9
[2018-09-12 15:36] VITALS: PULSE 88
--- NOTE | 2018-09-12 16:04 | DS ---
DISCHARGE SUMMARY DATE OF ADMISSION: 08/31/2018 DATE OF DISCHARGE: 09/12/2018 FINAL DIAGNOSES: 1. Large right-sided pleural effusion, malignant, status post chest tube placement followed by pleurodesis. 2. Right-sided pneumothorax with a chest tube in place. 3. Stage IV metastatic adenocarcinoma of the lung. Patient has recently just started on Opdivo; that has now been held. 4. Status post bronchoscopy. 5. Paroxysmal atrial fibrillation, currently in sinus rhythm, on Xarelto. 6. Chronic obstructive pulmonary disease in an ex-smoker. 7. Gastroesophageal reflux disease. 8. Hyperlipidemia. 9. Essential hypertension. 10.Primary osteoarthritis. 11.Macular degeneration. 12.Severe aortic stenosis with valve area of 0.8 cm2, non-rheumatic. 13.Chronic trigeminal neuralgia. 14.Coronary artery disease, non-occlusive. 15.Mild protein-calorie malnutrition from decreased oral intake. 16.Narcotic-induced constipation; responded to laxative. CONSULTATIONS: 1. Dr. Mitchell and colleagues from Pulmonary Critical Care. 2. Dr. Aldana and colleagues from Oncology. 3. Dr. Medina from Cardiothoracic Surgery. HOSPITAL COURSE: This is a pleasant 83-year-old patient of Dr. Cordova with a diagnosis of metastatic adenocarcinoma of the lung, originally diagnosed in 2011. Patient did undergo chemo and radiation and was in remission for quite a while. Patient recently had a PET scan in June that showed recurrence with multiple lung nodules. Patient presented with a large right pleural effusion and pneumothorax. Chest tube was placed. Large amount of fluid was obtained. Subsequently pleurodesis was carried out and chest tube was removed. Patient underwent bronchoscopy by Dr. Plummer that did show bronchogenic carcinoma involving the right mainstem bronchus, bronchus intermedius, right middle lobe, with subtotal occlusion of right middle lobe, right lower lobe and right upper lobe. At this point, from a pulmonary standpoint patient is relatively stable. Discussed with Dr. Corcoran. Patient will go for rehab, and after rehab is done patient will start on her chemotherapy with Opdivo. Today care was discussed at length with the patient and her daughter at the bedside. Patient's fentanyl patch has not been helping her. This just started, and since the chest tube has been out, the fentanyl patch is being discontinued. We will try the patient on [place] that the patient has taken before at home. I did the "Start talking" form and also did MAPS on this patient. Several questions were answered. Patient is tolerating some diet. PHYSICAL EXAMINATION: Temperature 97.9, pulse 102, respiration 18, blood pressure 102/79, pulse ox 96% on room air. LUNGS: Decreased breath sounds. ABDOMEN: Soft, nontender. PSYCH: Alert and oriented x3. INVESTIGATIONS: White count 10, hemoglobin 13.1, potassium 4.4. BUN and creatinine are normal. DISCHARGE MEDICATIONS: 1. Prilosec 20 mg p.o. b.i.d. p.r.n. 2. Potassium 10 mEq p.o. b.i.d. 3. Pravachol 80 mg p.o. at bedtime. 4. Xarelto 20 mg with supper. 5. Vitamin D3 1000 units p.o. daily. 6. Lopressor 25 mg p.o. daily. 7. PreserVision Ared-2 soft gel 1 capsule p.o. b.i.d. 8. Biotin 2000 mcg p.o. daily. 9. Calcium 600 mg p.o. daily. 10.Vitamin B12 1000 mcg p.o. daily. 11.Flexeril 5 mg p.o. t.i.d. p.r.n. 12.Lasix 20 mg p.o. daily. 13.Prinivil 5 mg p.o. daily. 14.Mycostatin 5 mL p.o. q.i.d. 15.Zofran 4 mg p.o. q.6 p.r.n. 16.Mycelex [place] 10 mg mucous membrane q.i.d. 17.[place] 7.5 one tablet q.4 p.r.n. 18.DuoNeb 3 mL t.i.d. 19.Lactulose 30 grams p.o. daily. 20.Melatonin 3 mg at bedtime p.r.n. 21.Naproxen 250 mg p.o. t.i.d. 22.Phenergan 12.5 q.6 p.r.n. 23.Metamucil 6 grams p.o. b.i.d. 24.Senokot-S 1 tablet p.o. b.i.d. DISPOSITION: [facility]. Follow up with Dr. Cordova at [facility]. Follow up with Dr. Mitchell in one week. Follow up with Dr. Caicedo in one week. Follow up with Dr. Bill in one week. Discussion and discharge planning more than 35 minutes. MMODL / IJN: [id number] /
[2018-09-12] MEDS: RIVAROXABAN 20 MG TAB PO SCH (16:23)
[2018-09-12] MEDS ORDERED: FAMOTIDINE 20 MG TAB PO SCH (21:00)
--- NOTE | 2018-09-14 11:19 | CDI ---
Last Revision, October 2017 Documentation Clarification Form Date: 09/14/18 From: Chela Dickey Phone: If you have a question regarding this query, please contact [facility]ela [place] at [phone] betweeen 8am and 5pm. Admit Date: 08/31/2018 3:56:00 PM Patient Name: Alicia Mackay Visit Number: [id number] Discharge Date: 09/12/18 ATTENTION: The Clinical Documentation Specialists (CDI) and [facility] Coding Staff appreciate your assistance in clarifying documentation. Please respond to the clarification below the line at the bottom and electronically sign. The CDI & [facility] Coding staff will review the response and follow-up if needed. Please note: Queries are made part of the Legal Health Record. If you have any questions, please contact the author of this message via ITS. Robin De Oliveira MD CHF is documented in the past medical history of the H&P, Dr. Mitchell's consult note and in the progress notes. History/Risk Factors: Patient has a history of CAD, hypertension and atrial fibrillation. Clinical Indicators: No exacerbation documented. VS/Pulse OX: T. 97.8, P. 103, R. 20, BP 118/73, P. Ox. 94% BNP: 430 Echocardiogram Results: Not done this admit. Treatment: PO Lasix daily. In your professional opinion, can you please clarify the type of CHF if known? Systolic Heart Failure: Diastolic Heart Failure: Systolic & Diastolic Heart Failure: Unable to Determine Other, please specify MTDD
== END 2018-09-12 17:40 | DRG 181 ==
LOC: EC 11:08 → 3SCARD 15:56 → 3NMEDONC 09-10 22:04
PROVIDERS: ADMIT Hospitalist; ATTEND Hospitalist
PROC: 0W9930Z Drainage of Right Pleural Cavity with Drainage Device, Percutaneous Approach (ICD-10-PCS; 2018-08-31)
PROC: 3E1F88Z Irrigation of Respiratory Tract using Irrigating Substance, Via Natural or Artificial Opening Endoscopic (ICD-10-PCS; principal; 2018-09-08 07:30)
DX: C34.2 Malignant neoplasm of middle lobe, bronchus or lung (principal); C34.01 Malignant neoplasm of right main bronchus; C34.11 Malignant neoplasm of upper lobe, right bronchus or lung; C79.9 Secondary malignant neoplasm of unspecified site; J91.0 Malignant pleural effusion; E44.1 Mild protein-calorie malnutrition; J93.82 Other air leak; J94.8 Other specified pleural conditions; J98.11 Atelectasis; I11.0 Hypertensive heart disease with heart failure; I48.2 Chronic atrial fibrillation; I50.9 Heart failure, unspecified; J44.9 Chronic obstructive pulmonary disease, unspecified; R13.12 Dysphagia, oropharyngeal phase; I35.0 Nonrheumatic aortic (valve) stenosis; E03.9 Hypothyroidism, unspecified; E78.5 Hyperlipidemia, unspecified; G50.0 Trigeminal neuralgia; G89.3 Neoplasm related pain (acute) (chronic); H35.30 Unspecified macular degeneration; I25.10 Atherosclerotic heart disease of native coronary artery without angina pectoris; J30.9 Allergic rhinitis, unspecified; K21.9 Gastro-esophageal reflux disease without esophagitis; K22.8 Other specified diseases of esophagus; K44.9 Diaphragmatic hernia without obstruction or gangrene; K59.03 Drug induced constipation; M19.91 Primary osteoarthritis, unspecified site; T40.605A Adverse effect of unspecified narcotics, initial encounter; M19.90 Unspecified osteoarthritis, unspecified site; Z79.01 Long term (current) use of anticoagulants; Z79.899 Other long term (current) drug therapy; Z92.3 Personal history of irradiation; Z92.21 Personal history of antineoplastic chemotherapy; Z90.11 Acquired absence of right breast and nipple; Z87.891 Personal history of nicotine dependence; Z85.3 Personal history of malignant neoplasm of breast; Z85.118 Personal history of other malignant neoplasm of bronchus and lung; Z85.89 Personal history of malignant neoplasm of other organs and systems; Z88.5 Allergy status to narcotic agent; Z90.49 Acquired absence of other specified parts of digestive tract; Z98.42 Cataract extraction status, left eye; Z98.41 Cataract extraction status, right eye; Z96.1 Presence of intraocular lens; Z98.51 Tubal ligation status; Z80.3 Family history of malignant neoplasm of breast
CPT/HCPCS: 31624; 32551; 36415; 71045; 71046; 71250; 74220; 74230; 80053; 82550; 82553; 83735; 83880; 84134; 84484; 85025; 85610; 85730; 87070; 87205; 88108; 88305; 88341; 88342; 93005; 94640; 94760; 96374; 99285

== ENCOUNTER → 2018-08-31 | Outpatient (CLI) | payer MEDICARE, BC ==
--- NOTE | 2018-08-31 11:03 | XR ---
EXAMINATION TYPE: XR chest 2V DATE OF EXAM: 08/31/2018 COMPARISON: 08/08/2018 HISTORY: COPD and lung carcinoma TECHNIQUE: Frontal and lateral views of the chest are obtained. FINDINGS: There is a right sided hydropneumothorax with pleural fluid obscuring the right midlung an d lower lung. Maximal apical separation is 4.5 cm with lateral separation of 8 mm. Although evaluatio n of mediastinal shift is limited due to the right lung opacity there does appear to be mass effect u sylvain the trachea shifting slightly leftward against the aortic arch. Interstitial prominence is seen t hroughout the left lung that may represent pneumonitis, chronic interstitial change or fluid overload . Mediastinal clips are appreciated as well as left breast clips. Sequela of chronic rotator cuff inj ury in the right humerus is suggested with diffuse osseous demineralization. Retained oral contrast i s noted of the bowel. IMPRESSION: Estimated 30% right hydropneumothorax with large fluid component obscuring the mediastin um and limiting evaluation for mediastinal shift. Slight mass effect on the trachea is seen. Findings were communicated with the ordering physician's office by Dr. Powell at 10:57 AM on 08/31/2018. The pa tient was directed to go immediately to the ER.
== END | disposition home or self-care (01) ==
LOC: RADXRMAIN 10:30
PROVIDERS: ATTEND Internal Medicine Hematology & Oncology
DX: J94.8 Other specified pleural conditions (principal); J39.8 Other specified diseases of upper respiratory tract; C34.90 Malignant neoplasm of unspecified part of unspecified bronchus or lung; C50.212 Malignant neoplasm of upper-inner quadrant of left female breast; I48.0 Paroxysmal atrial fibrillation; G89.3 Neoplasm related pain (acute) (chronic)
CPT/HCPCS: 71046